=== PATIENT | male | born 1965 | race Caucasian/White ===

== ENCOUNTER 2023-05-24 15:23 | Emergency (ER) | payer OTHER, SELFPAY ==
--- NOTE | ~2023-05-24 | CT_ITS ---
EXAMINATION: CT HEAD WITHOUT CONTRAST CT CERVICAL SPINE WITHOUT CONTRAST CLINICAL INFORMATION: Fall. EtOH. COMPARISON: None available. TECHNIQUE: Contiguous axial imaging was performed from the skull base to vertex without intravenous administration of contrast. Contiguous axial imaging was performed from the upper chest through the skull base without intravenous administration of contrast. Coronal and sagittal reformats were obtained at the acquisition workstation. This CT examination was performed using dose optimization techniques as appropriate, variously including the following: *Automated exposure control. *Adjustment of mA and/or kV according to patient size (this includes techniques or standardized protocols for targeted exams where dose is matched to indication/reason for exam; i.e. extremities or head). *Use of iterative reconstruction technique. DLP: 1989 mGy-cm FINDINGS: Head: There is no evidence of acute intracranial hemorrhage or edematous territorial infarction. Eckert-white matter differentiation is preserved. Scattered and partially confluent hypoattenuation in the periventricular and deep white matter are consistent with moderate microangiopathy. Proportional prominence of the ventricles and sulcal spaces without evidence of obstructive hydrocephalus. No abnormal mass effect or midline shift. No extra-axial fluid collections. No acute soft tissue or osseous abnormalities. Thinning of the sigmoid plate along the jugular bulbs bilaterally without venous diverticulum. Mild mucosal thickening of the paranasal sinuses. The mastoid air cells and middle ear cavities are clear. Cervical Spine: The atlantooccipital and atlantoaxial articulations remain well aligned. Moderate degenerative arthropathy of atlantodental articulation. There is anatomic alignment of the vertebral bodies and posterior elements. No evidence of acute fracture or subluxation. The vertebral body heights are maintained. Moderate degenerative disc disease at C6-C7 with associated disc-osteophyte complex formation. There appears to be at least moderate spinal canal stenosis at C6-C7. Mild degenerative disc disease at all additional cervical levels. Facet and uncovertebral joint arthropathy leads to osseous encroachment on the neural foramina from C3-C6. There is no prevertebral soft tissue swelling. There is a cystic lesion along the tail of the superficial lobe of the left parotid lobe, measuring 2.7 x 2.6 x 3.8 cm. The thyroid gland and remaining cervical soft tissues are within normal limits. The lung apices demonstrate no abnormalities. CT/CT cervical spine wo IV con IMPRESSION: 1. No evidence of acute intracranial hemorrhage or edematous territorial infarction. 2. No evidence of acute fracture or traumatic subluxation of the cervical spine. 3. Moderate underlying microangiopathy and generalized cerebral volume loss. 4. Moderate multilevel degenerative spondyloarthropathy of the cervical spine. Most notably on this limited exam without intrathecal contrast, there appears to be at least moderate spinal canal stenosis at C6-C7. 5. Nonspecific 3.8 cm cystic lesion along the tail of the superficial lobe of the left parotid lobe.
[2023-05-24 16:39] VITALS: BP 128/76; PULSE 95; O2SAT 90
[2023-05-24 16:51] VITALS: BP 124/74; PULSE 100; RESP 20; O2SAT 89; BMI 38.2
--- NOTE | 2023-05-24 16:56 | ED_ITS ---
HPI - Alcohol General Chief Complaint: ETOH/Substance Use Stated Complaint: ETOH WITNESSED FALLING Time Seen by Provider: 05/24/23 16:40 Source: patient and EMS Mode of arrival: EMS History of Present Illness HPI narrative: 58-year-old male brought in by EMS, he has been consuming alcohol today and was recently at [facility] and had a witnessed fall with C-collar in place and abrasion to the forehead. Patient states that he is fine and denies any headache at this time. Related Data Allergies Allergy/AdvReac Type Severity Reaction Status Date / Time Unable to Assess Allergy Verified 05/24/23 16:57 Review of Systems Review of Systems: Pertinent positives and negatives as stated in HPI PMFSH Past Medical History Source: nursing notes reviewed Social History Social History Alcohol intake: current Alcohol intake frequency: a few times a week Smoked in Last 30 Days: No Use of substances other than those prescribed or required for medical reasons: No Physical Exam ED Vital Signs: Vital Signs - 24 hr 05/24/23 16:51 05/24/23 18:10 Pulse Rate 100 93 Respiratory Rate 20 18 Blood Pressure 124/74 136/90 H Pulse Oximetry 89 L 96 Oxygen Delivery Method Room Air Nasal Cannula Oxygen Flow Rate 2 BMI result Body Mass Index 38.2 VITAL SIGNS: Reviewed. GENERAL: Elevated BMI, Well developed, well nourished, in no acute distress, smells of alcohol. HEAD: Normocephalic/abrasion-contusion to mid forehead EYES: PERRLA, EOMI EARS: Ext canals without abnormality NOSE: Nares patent bilateral OROPHARYNX: no oral lesions noted, posterior pharynx clear NECK: C-collar in place without midline cervical spine tenderness to palpation or step-offs. LUNGS: Normal breath sounds. No adventitious sounds or accessory muscle use. CARDIOVASCULAR: Regular rate and rhythm without noted murmurs ABDOMEN: Soft, non-tender, non-distended with bowel sounds. MUSCULOSKELETAL: No tenderness, deformities, or effusions noted on gross inspection. EXTREMITIES: No cyanosis, clubbing or edema. SKIN: Inspection of the skin reveals no rashes NEUROLOGIC: Alert and oriented x 4. Strength and sensation to light touch were grossly intact x 4. Medical Decision Making Medical Decision Making MDM Narrative: 58-year-old male with history and clinical presentation, DDX: Alcohol intoxication, fall secondary to gait unsteadiness due to alcohol intoxication, will rule out intracranial hemorrhage or cervical spine pathology. 1855: CT of the head negative for intracranial hemorrhage or mass effect 10 cervical spine does not demonstrate any fracture or subluxation. C-collar was removed. Patient was clinically evaluated as he was requesting to leave, he does ambulate with a steady gait. Patient states that he lives at home and will take the bus. Patient otherwise walked out of the department unbeknownst to any of the staff members. Differential Diagnosis Differential Diagnoses: The differential diagnosis associated with the presentation includes Please see the discussion above Admission/Observation Consideration of admission/observation: Escalation of care including admi ssion/observation considered Please see the discussion above Radiology Impression Discussion of test interpretation with radiology: I have reviewed the radiologist's reading. Radiologist Impression: Please see the discussion above Chronic Conditions Patient?s care impacted by: Other Alcohol use disorder Social Determinants Patient?s care significantly limited by Social Determinants of Health including: Alcoholism and drug addiction in family Discharge Plan Discharge Clinical Impression: Fall, Alcohol use disorder Patient Disposition: Elopement Instructions: Fall Prevention (ED), Alcohol Use Disorder (ED)
[2023-05-24 18:10] VITALS: BP 136/90; PULSE 93; RESP 18; O2SAT 96
--- NOTE | 2023-05-24 18:12 | PC.NURSE ---
Pt awaits CT scan at this time.
--- NOTE | 2023-05-24 18:44 | MHC.RECOVSUP ---
Met with pt in [facility] who is here after falling and [facility]AND[facility]. Pt informs he had been drinking today but does not have a drinking problem and is not interested in recovery supports at this time and would like to go home.
== END 2023-05-24 21:17 | disposition left against medical advice (07) ==
PROVIDERS: Emergency Provider Student in an Organized Health Care Education/Training Program
DX: S00.81XA Abrasion of other part of head, initial encounter (principal); W19.XXXA Unspecified fall, initial encounter; F10.920 Alcohol use, unspecified with intoxication, uncomplicated; Y90.9 Presence of alcohol in blood, level not specified; R26.81 Unsteadiness on feet; Y93.9 Activity, unspecified; Y92.9 Unspecified place or not applicable; Y99.9 Unspecified external cause status
CPT/HCPCS: 70450; 72125; 99284

== ENCOUNTER 2023-05-25 12:18 | Emergency (ER) | payer OTHER, SELFPAY ==
--- NOTE | ~2023-05-25 | XR_ITS ---
EXAMINATION: XR CHEST CLINICAL INFORMATION: Cough COMPARISON: None available. TECHNIQUE: Frontal view of the chest was obtained. 1 frontal view upright AP FINDINGS: No significant abnormality is noted involving the heart, lungs, mediastinum, bony thorax or soft tissues. XR/XR chest 1V IMPRESSION: No acute infiltrates or failure.
--- NOTE | 2023-05-25 12:25 | ED_ITS ---
HPI - General Adult General Chief complaint: ETOH/Substance Use Stated complaint: ETOH Time Seen by Provider: 05/25/23 12:24 Source: patient and EMS Mode of arrival: EMS Limitations: no limitations History of Present Illness HPI narrative: Patient is a 58 year old assigned male at with a history of alcohol abuse presenting to the emergency department today with acute intoxication. Patient states that he has been drinking and does not want to be here at this time. Patient denies any dizziness, lightheadedness, abdominal pain, nausea, vomiting, fever, chills, blurry vision, double vision, loss of vision, chest pain, difficulty breathing, shortness of breath, back pain, night sweats, pain with urination, increased urinary frequency, increased urinary urgency, blood in his urine or stool, syncope or a near syncopal episode, recent trauma or falls, bowel incontinence, bladder incontinence, bowel retention, bladder retention, or any other complaints at this time. Relieving factors: none Exacerbating factors: none Associated symptoms: denies other symptoms Treatments prior to arrival: none Related Data Allergies Allergy/AdvReac Type Severity Reaction Status Date / Time Unable to Assess Allergy Verified 05/25/23 12:33 Review of Systems 2 Constitutional: Constitutional: Reports no additional constitutional complaints, Denies chills, Denies fever(s) and Denies night sweats Eyes: Eyes: Reports no additional eye complaints, Denies blurry vision, Denies change in vision, Denies diplopia, Denies eye discharge, Denies loss of vision and Denies eye pain ENT: Denies dizziness Cardiovascular: Cardiovascular: Reports no additional cardiovascular complaints, Denies chest pain, Denies lightheadedness, Denies Loss of Consciousness and Denies dyspnea Respiratory: Respiratory: Reports no additional respiratory complaints and Denies dyspnea Gastrointestinal: Gastrointestinal: Reports no additional gastrointestinal complaints, Denies abdominal pain, Denies melena, Denies hematochezia, Denies change in bowel habits and Denies change in stool character Genitourinary: Genitourinary: Reports no additional male genitourinary complaints, Denies hematuria, Denies oliguria, Denies difficulty urinating, Denies dysuria, Denies urinary frequency, Denies urinary hesitancy, Denies urinary incontinence and Denies urinary urgency Musculoskeletal: Musculoskeletal: Reports no additional musculoskeletal complaints, Denies numbness and Denies tingling Neurologic: Denies dizziness, Denies loss of vision, Denies numbness and Denies tingling Psychiatric: Psychiatric: Reports no additional psychiatric complaints Endocrine: Endocrine: Reports no additional endocrine complaints Hematologic/Lymphatic: Hematologic/Lymphatic: Reports no additional hematologic/lymphatic complaints Allergic/Immunologic: Allergic/Immunologic: Reports no additional allergic/immunologic complaints PMFSH Past Medical History Attestation statement: The following information was validated with the patient. Source: old records reviewed and nursing notes reviewed Social History Social History Alcohol intake: current Alcohol intake frequency: a few times a week Advance Directives: No Advance Directives Information Provided: No Physical Exam ED Vital Signs: Vital Signs - 24 hr 05/25/23 12:28 Temperature 100.1 F Pulse Rate 101 H Respiratory Rate 20 Blood Pressure 144/93 H Pulse Oximetry 94 Oxygen Delivery Method Room Air BMI result Body Mass Index 35.6 Const General: cooperative, no acute distress, alert and awake Nutritional Appearance: well nourished Orientation/consciousness: patient oriented x3 Limitations: no limitations HENMT Head: Yes normal to inspection and Yes atraumatic Ears: hearing grossly normal bilaterally and external ears normal General nose exam: Normal external nose present, no nasal discharge noted and no epistaxis Face and sinus: Yes normal facial exam, No abrasion and No laceration Mouth: Normal oral and palatal mucosa present, no drooling and no muffled voice Eyes General: appearance normal, both eyes and all related structures Periorbital: periorbital findings normal Eyelids: Yes eyelids normal Conjunctivae: conjunctivae normal Pupils: Equal, round and reactive pupils present EOM: EOMs intact bilaterally Neck Neck: Yes normal visual inspection, Yes full ROM and Yes no lymphadenopathy Chest Chest palpation & inspection: normal inspection of the chest Resp Effort & Inspection: normal respiratory effort and able to speak in complete sentences Auscultation: clear to auscultation bilaterally Cardio Rate: regular rate Rhythm: regular rhythm GI Inspection: Yes normal to inspection Neuro General: patient oriented x3 and moves all extremities Cranial nerves: Yes Equal, round and reactive pupils present Cognition (Neuro): normal cognition Motor exam (neuro): 5/5 motor strength present throughout Sensory Exam: Normal double simultaneous stimulation for sensation Coordination: [id number] test normal Extrem General: Yes normal to inspection, Yes full ROM and Yes capillary refill normal Psych Appearance: grossly normal Mental Status: mental status grossly normal Affect: normal affect Attitude: cooperative Thought process: Normal thought process present Thought content: Normal thought content present Insight: Good insight present (Psych) Medical Decision Making Medical Decision Making [facility] Narrative: Patient is a 58 year old assigned male at with a history of alcohol abuse presenting to the emergency department today with alcohol intoxication. Patient's physical exam was unremarkable. Given patient's level of intoxication I obtained a medical work up. Patient's blood work showed an elevated lactic acid of 2.5 and elevated alcohol level of 304 but were otherwise unremarkable. Patient's EKG was unremarkable. Patient's chest x-ray showed no acute process. I explained my physical exam findings as well as all test results to the patient. I answered all questions asked by the patient. Patient was in the department for some time and was able to ambulate steadily on his feet. Patient requested to leave the department and ordered himself an Uber. I stressed the importance of the patient taking his medication as prescribed and refraining from alcohol use. I stressed the importance of the patient following up with his primary care provider. I stressed the importance of the patient returning to the emergency department immediately if his symptoms were to worsen or if he were to develop any dizziness, shortness of breath, difficulty breathing, chest pain, blurry vision, loss of vision, nausea, vomiting, abdominal pain, fever, chills, back pain, or any other complaints. Patient verbalized agreement and understanding with this treatment plan and discharge. Differential Diagnosis Differential Diagnoses: The differential diagnosis associated with the presentation includes Alcohol intoxication ETOH abuse ETOH use Admission/Observation Consideration of admission/observation: Escalation of care including admission/observation considered Patient would have been admitted to the hospital had his work up had any findings where hospital admission was appropriate and his clinical presentation warranted hospital admission. Lab Data [facility] Lab Attestation statement: I reviewed the patient's lab results. My interpretation of these results are in the [facility] Rationale portion in this note. 05/25/23 14:27 05/25/23 14:26 Labs: Lab Results 05/25/23 05/25/23 05/25/23 Range/Units 14:26 14:27 14:28 WBC 8.3 (4.8-10.8) X10*3/uL RBC 4.86 (4.60-5.80) X10*6/uL Hgb 15.9 (14.0-18.0) g/dl Hct 45.1 (42.0-52.0) % MCV 92.8 (80.0-98.0) fL MCH 32.7 (27.0-33.0) pg MCHC 35.3 (31.0-36.0) g/dl RDW 13.2 (11.0-16.0) % Plt Count 276 (160-400) X10*3/uL MPV 9.4 (9.4-12.4) fL Immature Gran % (Auto) 0.8 H (0.0-0.4) % Neut % (Auto) 70.1 (45-73) % Lymph % (Auto) 19.9 L (20-40) % [place] % (Auto) 6.7 (2-11) % Eos % (Auto) 1.9 (0-4) % Baso % (Auto) 0.6 (0-2) % Lymph # (Auto) 1.7 (1.2-4.9) X10*3/uL [place] # (Auto) 0.6 (0.1-1.2) X10*3/uL Eos # (Auto) 0.2 (0.0-0.4) X10*3/uL Baso # (Auto) 0.1 (0.0-0.2) X10*3/uL Abs Immat Gran (auto) 0.07 H (0.00-0.03) X10*3/uL Absolute Neuts (auto) 5.8 (2.0-8.3) x10*3/uL Absolute Nucleated RBC 0.000 (0.0-0.012) X10*3/uL Nucleated RBC % (auto) 0.0 (0.0-0.2) /100WBC PT 12.7 (11.1-13.3) SEC INR 1.0 (0.9-1.1) APTT 32.8 (26.0-36.4) SEC VBG pH (7.32-7.43) VBG pCO2 mmHg VBG pO2 mmHg VBG HCO3 (22-26) mmol/L VBG O2 Saturation % VBG Base Excess mmol/L Sodium 142 (135-145) mmol/L Potassium 3.9 (3.3-5.1) mmol/L Chloride 108 (96-108) mmol/L Carbon Dioxide 21 L (22-29) mmol/L Anion Gap 17 (12-20) BUN 14 (9-16) mg/dL Creatinine 0.83 (0.5-1.4) mg/dL Estim Creat Clear Calc 108.7 Estimated GFR > 60 Random Glucose 83 (60-115) mg/dL Lactic Acid 2.5 H* (0.5-2.0) mmol/L Calcium 9.0 (8.4-10.2) mg/dL Magnesium 2.1 (1.6-2.6) mg/dL Total Bilirubin 0.4 (0.0-1.0) mg/dL AST 32 (5-37) U/L ALT 34 (0-40) U/L Alkaline Phosphatase 66 (39-117) U/L Troponin I High Sens (<3.5-35.0) ng/L Total Protein 7.8 (6.5-8.0) g/dL Albumin 4.4 (3.5-5.0) g/dL Ethyl Alcohol 304 H* mg/dL Influenza Type A (PCR) NEGATIVE (Negative) Influenza Type B (PCR) NEGATIVE (Negative) RSV RNA Qual (PCR) NEGATIVE (Negative) SARS-CoV-2 RNA (RT-PCR) NEGATIVE (Negative) 05/25/23 05/25/23 Range/Units 14:29 14:35 WBC (4.8-10.8) X10*3/uL RBC (4.60-5.80) X10*6/uL Hgb (14.0-18.0) g/dl Hct (42.0-52.0) % MCV (80.0-98.0) fL MCH (27.0-33.0) pg MCHC (31.0-36.0) g/dl RDW (11.0-16.0) % Plt Count (160-400) X10*3/uL MPV (9.4-12.4) fL Immature Gran % (Auto) (0.0-0.4) % Neut % (Auto) (45-73) % Lymph % (Auto) (20-40) % [place] % (Auto) (2-11) % Eos % (Auto) (0-4) % Baso % (Auto) (0-2) % Lymph # (Auto) (1.2-4.9) X10*3/uL [place] # (Auto) (0.1-1.2) X10*3/uL Eos # (Auto) (0.0-0.4) X10*3/uL Baso # (Auto) (0.0-0.2) X10*3/uL Abs Immat Gran (auto) (0.00-0.03) X10*3/uL Absolute Neuts (auto) (2.0-8.3) x10*3/uL Absolute Nucleated RBC (0.0-0.012) X10*3/uL Nucleated RBC % (auto) (0.0-0.2) /100WBC PT (11.1-13.3) SEC INR (0.9-1.1) APTT (26.0-36.4) SEC VBG pH 7.33 (7.32-7.43) VBG pCO2 39 mmHg VBG pO2 122 mmHg VBG HCO3 21 L (22-26) mmol/L VBG O2 Saturation 99.0 % VBG Base Excess -4.2 mmol/L Sodium (135-145) mmol/L Potassium (3.3-5.1) mmol/L Chloride (96-108) mmol/L Carbon Dioxide (22-29) mmol/L Anion Gap (12-20) BUN (9-16) mg/dL Creatinine (0.5-1.4) mg/dL Estim Creat Clear Calc Estimated GFR Random Glucose (60-115) mg/dL Lactic Acid (0.5-2.0) mmol/L Calcium (8.4-10.2) mg/dL Magnesium (1.6-2.6) mg/dL Total Bilirubin (0.0-1.0) mg/dL AST (5-37) U/L ALT (0-40) U/L Alkaline Phosphatase (39-117) U/L Troponin I High Sens 10.4 (<3.5-35.0) ng/L Total Protein (6.5-8.0) g/dL Albumin (3.5-5.0) g/dL Ethyl Alcohol mg/dL Influenza Type A (PCR) (Negative) Influenza Type B (PCR) (Negative) RSV RNA Qual (PCR) (Negative) SARS-CoV-2 RNA (RT-PCR) (Negative) Independent Interpretation I performed an independent interpretation of an: EKG and Plain X-Ray Interpretation: My interpretation is in agreement with the radiologist's impression of this imaging study. - EXAMINATION: XR CHEST CLINICAL INFORMATION: Cough COMPARISON: None available. TECHNIQUE: Frontal view of the chest was obtained. 1 frontal view upright AP FINDINGS: No significant abnormality is noted involving the heart, lungs, mediastinum, bony thorax or soft tissues. XR/XR chest 1V IMPRESSION: No acute infiltrates or failure. Dictated By: Nathalie Garcia MD Signed By: Electronically signed by Nathalie Garcia MD 05/25/23 1443 - Vent. Rate: 096 BPM Atrial Rate: 096 BPM P-R Int: 214 ms QRS Dur: 106 ms QT Int: 356 ms P-R-T Axes: 018 -18 064 degrees QTc Int: 449 ms Sinus rhythm with 1st degree A-V block Incomplete right bundle branch block Septal infarct , age undetermined T wave abnormality, consider lateral ischemia Abnormal ECG No previous ECGs available Electronically Signed By:EDDIE HZU Dictated By: Eddie Zhu MD Signed By: Electronically signed by Eddie Zhu MD 05/25/23 1549 Radiology Impression Discussion of test interpretation with radiology: I have reviewed the radiologist's reading. Independent Historian Clinical information obtained from an independent historian. History obtained from or confirmed by: EMS (EMS provided additional history and confirmed the history provided by the patient.) Discharge Plan Discharge Clinical Impression: Alcoholic intoxication Patient Disposition: Home, Self-Care Instructions: Alcohol Intoxication (ED) Additional Instructions: Follow up with your primary care provider. Return to the emergency department immediately if your symptoms worsen or if you develop any dizziness, shortness of breath, difficulty breathing, chest pain, blurry vision, loss of vision, nausea, vomiting, abdominal pain, fever, chills, back pain, or any other complaints. Ref[place]: [facility] [facility] [place] (Call to establish and follow up with a primary care provider. If you already have a primary care provider, please follow up with them.) [facility] [place] [facility] [place]Provider Group] (Call to establish and follow up with a primary care provider. If you already have a primary care provider, please follow up with them.) [facility] [place] [facility] [Provider Group] (Call to establish and follow up with a primary care provider. If you already have a primary care provider, please follow up with them.) Interventions: ED Discharge Assessment Last Done: 05/25/23 15:10 Discharge Date/Time: 05/25/23 15:24 Print Language: Yi
[2023-05-25 12:28] VITALS: BP 144/93; BP 160/82; PULSE 101; PULSE 110; RESP 20; TEMP 37.8; O2SAT 94; O2SAT 95; BMI 35.6
--- NOTE | 2023-05-25 12:52 | ECG_ITS ---
Test Reason : WEAKNESS Blood Pressure : / mmHG Vent. Rate : 096 BPM Atrial Rate : 096 BPM P-R Int : 214 ms QRS Dur : 106 ms QT Int : 356 ms P-R-T Axes : 018 -18 064 degrees QTc Int : 449 ms Sinus rhythm with 1st degree A-V block Incomplete right bundle branch block Septal infarct , age undetermined T wave abnormality, consider lateral ischemia Abnormal ECG No previous ECGs available Referred By: Daiana Crespo Electronically Signed By:YVETTE GARDNER
[2023-05-25 14:36] LABS: MANUAL DIFF FLAG NO
[2023-05-25 14:38] LABS: Venous Blood Gas Refer to POC result
[2023-05-25 14:39] LABS: Basophils Absolute Auto 0.1 X10*3/uL (0.0-0.2); Basophils Percent Auto 0.6 % (0-2); Eosinophils Absolute Auto 0.2 X10*3/uL (0.0-0.4); Eosinophils Percent Auto 1.9 % (0-4); Hematocrit 45.1 % (42.0-52.0); Hemoglobin 15.9 g/dl (14.0-18.0); Imm Gran Abs Auto 0.07 X10*3/uL (0.00-0.03); Imm Gran Pct Auto 0.8 % (0.0-0.4); Lymphocytes Absolute Auto 1.7 X10*3/uL (1.2-4.9); Lymphocytes Percent Auto 19.9 % (20-40); Mean Corpuscular HGB Conc 35.3 g/dl (31.0-36.0); Mean Corpuscular Hemoglobin 32.7 pg (27.0-33.0); Mean Corpuscular Volume 92.8 fL (80.0-98.0); Mean Platelet Volume 9.4 fL (9.4-12.4); Monocytes Absolute Auto 0.6 X10*3/uL (0.1-1.2); Monocytes Percent Auto 6.7 % (2-11); Neutrophils Absolute Auto 5.8 x10*3/uL (2.0-8.3); Neutrophils Percent Auto 70.1 % (45-73); Platelet Count 276 X10*3/uL (160-400); Red Blood Count 4.86 X10*6/uL (4.60-5.80); Red Cell Distribution Width 13.2 % (11.0-16.0); White Blood Count 8.3 X10*3/uL (4.8-10.8)
[2023-05-25 14:40] LABS: VBG Base Excess -4.2 mmol/L; VBG HCO3 21 mmol/L (22-26); VBG pCO2 39 mmHg; VBG pH 7.33 (7.32-7.43); VBG pO2 122 mmHg
[2023-05-25 14:44] LABS: Prothrombin Time 12.7 SEC (11.1-13.3)
[2023-05-25 14:46] LABS: Partial Thromboplastin Time 32.8 SEC (26.0-36.4)
[2023-05-25 14:51] LABS: Ethanol 304 mg/dL
[2023-05-25 14:55] LABS: Alanine Aminotransferase 34 U/L (0-40); Albumin Level 4.4 g/dL (3.5-5.0); Alkaline Phosphatase 66 U/L (39-117); Anion Gap 17 (12-20); Aspartate Amino Transferase 32 U/L (5-37); Bilirubin Total 0.4 mg/dL (0.0-1.0); Blood Urea Nitrogen 14 mg/dL (9-16); Carbon Dioxide 21 mmol/L (22-29); Chloride 108 mmol/L (96-108); Creatinine Clr Calc Pharmacy 108.7; Estimated Glomerular Filt Rate > 60; Glucose Random 83 mg/dL (60-115); Magnesium 2.1 mg/dL (1.6-2.6); Potassium 3.9 mmol/L (3.3-5.1); Sodium 142 mmol/L (135-145); Total Protein 7.8 g/dL (6.5-8.0)
[2023-05-25 15:00] LABS: Lactic Acid 2.5 mmol/L (0.5-2.0)
[2023-05-25 15:02] LABS: Troponin-I High Sensitivity 10.4 ng/L (<3.5-35.0)
--- NOTE | 2023-05-25 15:08 | PC.NURSE ---
Pt was dressing himself stating he was going to leave. Pa at bedside. Pt had verbal discharge done. Pt ambulated self out of ED
[2023-05-25 15:32] LABS: Influenza A PCR NEGATIVE (Negative); Influenza B PCR NEGATIVE (Negative); Resp Syncy Virus RNA Qual PCR NEGATIVE (Negative); SARS COV2 PCR INHOUSE NEGATIVE (Negative)
[2023-05-25 16:32] LABS: Reflex Lactate? Lactic Acid Added
== END 2023-05-25 15:24 | disposition home or self-care (01) ==
LOC: HO.ED 15:20
PROVIDERS: Physician Assistant Medical; Emergency Provider Emergency Medicine
DX: F10.129 Alcohol abuse with intoxication, unspecified (principal); R05.9 Cough, unspecified; Y90.8 Blood alcohol level of 240 mg/100 ml or more; Z20.822 Contact with and (suspected) exposure to COVID-19; Z20.828 Contact with and (suspected) exposure to other viral communicable diseases; Z79.899 Other long term (current) drug therapy
CPT/HCPCS: 0241U; 71045; 80053; 80307; 82803; 83605; 83735; 84484; 85025; 85610; 85730; 87040; 93005; 99283; 99284

== ENCOUNTER → 2023-05-25 12:52 | Outpatient (BNV) | payer OTHER, SELFPAY | PROVIDERS: Emergency Provider Emergency Medicine; Visit Provider Internal Medicine | DX: I44.0 Atrioventricular block, first degree (principal); R94.31 Abnormal electrocardiogram [ECG] [EKG] | CPT/HCPCS: 93010 ==

== ENCOUNTER 2025-02-18 10:30 | Outpatient (AMB) | payer OTHER, SELFPAY ==
[2025-02-18 10:48] VITALS: BMI 38.1
--- NOTE | 2025-02-18 10:48 | A.OFFVIS_ITS ---
VS Expanded 02/18/25 10:48 02/18/25 10:53 Height 5 ft 11 in 5 ft 11 in Weight 273 lb 5.971 oz 273 lb BMI 38.1 38.1 Intake Visit Reasons: Obesity Allergies Unable to Assess Allergy (Verified 05/25/23 12:33) Nutrition Presentation Details: Pt presents for MNT for obesity Pt reports having gained about 25 lbs since May 2025 d/t sedentary lifestyle d/t injury Pt reports he is currently residing in a sober house since September 2024 and is working on choosing healthier foods physical activity: participates in PT 2 x/wk, and is gardening daily , working on keeping physically active and keeping sober food frequency fruits: 4+/d fish: 1/wk ve-3x/wk dairy: 4c /day starches pasta/potatoes working on reducing pastries/cookies /ice cream Reports taking MVI, vit D and b comples BS Monitoring Most Recent Diabetes Results: Creatinine, (0.5-1.4) 0.83 mg/dL 05/25/23 BUN, (9-16) 14 mg/dL 05/25/23 Sodium, (135-145) 142 mmol/L 05/25/23 Potassium, (3.3-5.1) 3.9 mmol/L 05/25/23 Chloride, (96-108) 108 mmol/L 05/25/23 Carbon Dioxide, (22-29) 21 mmol/L L 05/25/23 Calcium, (8.4-10.2) 9.0 mg/dL 05/25/23 AST, (5-37) 32 U/L 05/25/23 ALT, (0-40) 34 U/L 05/25/23 Total Protein, (6.5-8.0) 7.8 g/dL 05/25/23 Albumin, (3.5-5.0) 4.4 g/dL 05/25/23 ZOQ-Nymogdl-Oe.Jeor Equation Height: 5 ft 11 in Weight: 273 lb Resting Metabolic Rate: 2083.83 Calculated Activity Level: Sedentary Calories Needed to Maintain Weight: 2500.60 Diagnosis Nutrition problem #1: overweight/obesity As related to (etiology) #1: diagnosis As evidenced by (sign/symptom) #1: high BMI (38.1 (03/12)) PFSH Social History Alcohol intake: current Alcohol intake frequency: a few times a week Assessment & Plan Assessment & Plan (1) Obesity (BMI 30-39.9): Code(s): E66.9 - Obesity, unspecified Category: Medical Plan: Wt: 124 Kg ( 03/12 ) Est kcal needs as per MSJ: 2500 (40% carb, 30% protein/fat) Est fluid needs as per 25-30 ml/d: 3700 Est prot per day as per 1 g/kg bw: 124 Recommend fiber intake : 8-10 g per day and gradually increase to 25-28 g per day for women and 35-38 g for men or as tolerated Recommend sodium intake per day : less than 2000 mg Educated patient on: ( R = reviewed V = verbalizes understanding N/R = needs review N/A = not applicable * Food sources of carbohydrate, adequate serving sizes and its role in various health conditions: R * Differences between complex carbohydrates a simple carbohydrates, role of fiber in diet: R * Lean protein sources of foods: R * Differences between types of fats and role in diet (mono on saturated fat fatty acids, saturated fatty acids, trans fats): R V N/R * Food sources of sodium in salt and healthy modifications for heart health in kidney health: R V R/V * Vitamins and minerals: R V N/R * Healthy plate method concept: R * Physical activity: Benefits a precaution: R V N/R * Patient Instructions: Include fish at least twice a week Continue working on reducing on sugars (beverages/pastries and similar) Switch to whole grains (breads, whole grain pastas, starchy vegetables ) REduce portion of starches to less than 2 cups cooked Coding Level of Care Code Nutr Indiv Intake (76625) Diagnoses Obesity (BMI 30-39.9) E66.9 Time Spent (min) 30
--- OUTSIDE RECORDS SUMMARY | 2025-02-18 12:17 | XMS_ITS | Encounter Summary ---
Author Organization [facility] Address [address] [place] [address] Care Team Providers Care Jewelry Sales Representative Name Role Phone Asia Appiah Primary Care Provider + Encounter Details Date Type Department Care Team (Late st Contact Info) Description 08/02/2024 Lab Requisition [facility] - Main Lab [address] [facility] [place] [address] Robert Olivares MD [address] [place] [address], [phone] Unspecified diastolic (congestive) heart failure (CMS/HCC V24, CMS/HCC V28) Social History Tobacco Use Types Packs/Day Years Used Date Smoking Tobacco: Former Cigarettes Q uit: 02/08/2019 Smokeless Tobacco: Never Alcohol Use Standard Drinks/Week Comments Not Currently 0 (1 standard drink = 0.6 oz pur e alcohol) Sex and Gender Information Value Date Recorded Sex Assigned at Not on file Legal Sex Male 6:33 PM EST Gender Identity Not on file Sexual Orientation Not on file 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 file Not on file Not on file documented as of this encounter Plan of Treatment Upcoming Encounters Date Type Department Care Team (Late st Contact Info) Description 03/04/2025 1:30 PM EDT Consult Orthopedic Surgery - [place] [address] [facility] [address] [place] [phone] Salazar William, [place]ACA 175 [facility] 250 [place] [address] 03/25/2025 3:30 PM EDT Office Visit Bariatric Surgery - [place] [address] [facility] [address] [place] [phone] Susi Rodriguez PA [address] [place] [address] 04/15/2025 10:30 AM EDT Office Visit Internal Medicine - [place] 175 [facility] 200 [place] [phone] Asia Appiah PA [address] [place] [address] documented as of this encounter Procedures Procedure Name Priority Date/Time Associated Diagnosis Comments SEDIMENTATION RATE Routine 08/04/2024 6: 55 AM EST Unspecified diastolic (congestive) heart failure (CMS/HCC) COMPLETE BLOOD COUNT Routine 08/04/2024 6:55 AM EST Unspecified diastolic (congestive) heart failure (CMS/HCC) C-REACTIVE PROTEIN Routine 08/04/2024 6: 55 AM EST Unspecified diastolic (congestive) heart failure (CMS/HCC) COMPREHENSIVE METABOLIC PANEL Routine 08/04/2024 6:55 AM EST Unspecified diastolic (congestive) heart failure (CMS/HCC) documented in this encounter Results * Comprehensive metabolic panel (08/04/2024 6:55 AM EST) Sodium 142 133 - 145 mmol/L LAB CHEMISTRY METHOD 08/04/2024 11:56 AM EST [facility] Potassium 3.7 3.5 - 5.5 mmol/L LAB CHEMISTRY METHOD 08/04/2024 11:56 AM EST [facility] Chloride 107 96 - 110 mmol/L LAB CHEMISTRY METHOD 08/04/2024 11:56 AM [facility] CO2 24 21 - 32 mmol/L LAB CHEMISTRY METHOD 08/04/2024 11:56 AM [facility] Anion Gap 11 3 - 11 LAB CHEMISTRY METHOD 08/04/2024 11:56 AM [facility] Glucose 94 70 - 100 mg/dL LAB CHEMISTRY METHOD 08/04/2024 11:56 AM [facility] BUN 13 5 - 25 mg/dL LAB CHEMISTRY METHOD 08/04/2024 11:56 AM [facility] Creatinine 0.83 0.70 - 1.30 mg/dL LAB CHEMISTRY METHOD 08/04/2024 11:56 AM [facility] eGFR 101 >=60 mL/min/1. 73m2 LAB CHEMISTRY METHOD 08/04/2024 11:56 AM [facility] Comment:Calculation based on the Chronic Kidney Disease Epidemiology Collaboration (CKD-EPI) equation refit without adjustment for race. BUN/Creatinine Ratio 15.7 LAB CHEMISTRY METHOD 08/04/2024 11:56 AM [facility] Calcium 8.7 8.5 - 10.5 mg/dL LAB CHEMISTRY METHOD 08/04/2024 11:56 AM [facility] AST (SGOT) 19 10 - 42 unit/L LAB CHEMISTRY METHOD 08/04/2024 11:56 AM [facility] ALT (SGPT) 22 10 - 60 unit/L LAB CHEMISTRY METHOD 08/04/2024 11:56 AM [facility] Alkaline Phosphatase 44 42 - 121 unit/L LAB CHEMISTRY METHOD 08/04/2024 11:56 AM [facility] Total Protein 6.6 6.0 - 8.0 g/dL LAB CHEMISTRY METHOD 08/04/2024 11:56 AM [facility] Albumin 3.4 3.2 - 5.0 g/dL LAB CHEMISTRY METHOD 08/04/2024 11:56 AM EST [facility] Total Bilirubin 0.3 0.0 - 1.4 mg/dL LAB CHEMISTRY METHOD 08/04/2024 11:56 AM [facility] Blood Venous blood specimen / Unknown Venipuncture / Unknown 08/04/2024 6:55 AM EST 08/04/2024 11:06 AM EST us Robert Olivares MD LAB BLOOD ORDERABLES Final Resul t [facility] [address] [place] [address], [place] [phone] * (ABNORMAL) Complete blood count (08/04/2024 6:55 AM EST) WBC 5.1 4.8 - 10.8 K/mcL LAB HEMETOLOGY METHOD 08/04/2024 11:21 AM [facility] RBC 4.00(L) 4.50 - 5.50 M/mcL LAB HEMETOLOGY METHOD 08/04/2024 11:21 AM [facility] Hemoglobin 12.9(L) 13.5 - 17.5 g/dL LAB HEMETOLOGY METHOD 08/04/2024 11:21 AM [facility] Hematocrit 38.7(L) 42.0 - 54.0 % LAB HEMETOLOGY METHOD 08/04/2024 11:21 AM [facility] MCV 96.0 79.0 - 98.0 FL LAB HEMETOLOGY METHOD 08/04/2024 11:21 AM [facility] MCH 32.0 27.0 - 32.0 pcg LAB HEMETOLOGY METHOD 08/04/2024 11:21 AM [facility] MCHC 33.3 32.0 - 37.0 g/dL LAB HEMETOLOGY METHOD 08/04/2024 11:21 AM [facility] RDW 12.9 11.0 - 15.0 % LAB HEMETOLOGY METHOD 08/04/2024 11:21 AM EST [facility] Platelets 200 130 - 400 K/mcL LAB HEMETOLOGY METHOD 08/04/2024 11:21 AM EST [facility] MPV 9.8 7.0 - 11.0 FL LAB HEMETOLOGY METHOD 08/04/2024 11:21 AM EST [facility] NRBC 0.0 <1.0 % LAB HEMETOLOGY METHOD 08/04/2024 11:21 AM EST [facility] NRBC Absolute 0.00 <0.10 K/mcL LAB HEMETOLOGY METHOD 08/04/2024 11:21 AM EST [facility] Blood Venous blood specimen / Unknown Venipuncture / Unknown 08/04/2024 6:55 AM EST 08/04/2024 11:06 AM EST Robert Olivares MD LAB BLOOD ORDERABLES Final Resul t Performing Organization Address City/[facility]/ZIP Co de Phone Number [facility] [address] [place] [address], [place] [phone] * C-reactive protein (08/04/2024 6:55 AM EST) C-Reactive Protein <0.29 <=0.50 mg/dL LAB CHEMISTRY METHOD 08/04/2024 11:56 AM EST [facility] Blood Venous blood specimen / Unknown Venipuncture / Unknown 08/04/2024 6:55 AM EST 08/04/2024 11:06 AM EST us Robert Olivares MD LAB BLOOD ORDERABLES Final Resul t [facility] [address] [place] [address], [place] [phone] * Sedimentation rate (08/04/2024 6:55 AM EST) Sed Rate 17 0 - 20 mm/hr LAB HEMETOLOGY METHOD 08/04/2024 11:36 AM EST [facility] Blood Venous blood specimen / Unknown Venipuncture / Unknown 08/04/2024 6:55 AM EST 08/04/2024 11:06 AM EST us Robert Olivares MD LAB BLOOD ORDERABLES Final Resul t [facility] [address] [place] [address], documented in this encounter Visit Diagnoses Diagnosis Unspecified diastolic (congestive) heart failure (CMS/HCC V24, CMS/HCC V28) documented in this encounter Additional Health Concerns Infection Onset Date Last Indicated Resolved Time ESBL 06/19/2024 06/19/2024 documented as of this encounter Care Teams Jewelry Sales Representative Relationship Specialty Start Date End Date Asia Appiah PA [address] [address] PCP - General Primary Care 08/15/24 documented as of this encounter
--- OUTSIDE RECORDS SUMMARY | 2025-02-18 12:17 | XMS_ITS | Encounter Summary ---
Author Organization [facility] Address [address] [place] [address] Care Team Providers Care Qualitative Executive Researcher Name Role Phone Asia Appiah Primary Care Provider + Encounter Details Date Type Department Care Team (Late st Contact Info) Description 09/19/2024 Lab Requisition [facility] - Main Lab [address] [facility] [place] [address] Robert Olivares MD [address] [place] [address], [phone] Unspecified diastolic (congestive) heart failure (CMS/HCC [...] 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 on file Not on file documented as of this encounter Plan of Treatment Upcoming Encounters Date Type Department Care Team (Late st Contact Info) Description 03/04/2025 1:30 PM EDT Consult Orthopedic Surgery - [place] [address] [facility] [address] [place] [phone] Salazar William, [place]ACA 175 [facility] 250 [place] [address] 03/25/2025 3:30 PM EDT Office Visit Bariatric Surgery - [place] 175 [facility] [address] [place] [phone] Susi Rodriguez PA 230 [place] [address] 04/15/2025 10:30 AM EDT Office Visit Internal Medicine - [place] 175 [facility] 200 [place] [phone] Asia Appiah PA 230 [place] [address] documented as of this encounter Procedures Procedure Name Priority Date/Time Associated Diagnosis Comments SEDIMENTATION RATE Routine 09/22/2024 8: 47 AM EDT Unspecified diastolic (congestive) heart failure (CMS/HCC) COMPLETE BLOOD COUNT Routine 09/22/2024 8:47 AM EDT Unspecified diastolic (congestive) heart failure (CMS/HCC) C-REACTIVE PROTEIN Routine 09/22/2024 8: 47 AM EDT Unspecified diastolic (congestive) heart failure (CMS/HCC) COMPREHENSIVE METABOLIC PANEL Routine 09/22/2024 8:47 AM EDT Unspecified diastolic (congestive) heart failure (CMS/HCC) documented in this encounter Results * (ABNORMAL) Comprehensive metabolic panel (09/22/2024 8:47 AM EDT) Sodium 139 133 - 145 mmol/L LAB CHEMISTRY METHOD 09/22/2024 1:01 PM EDT [facility] Potassium 3.7 3.5 - 5.5 mmol/L LAB CHEMISTRY METHOD 09/22/2024 1:01 PM EDT [facility] Chloride 105 96 - 110 mmol/L LAB CHEMISTRY METHOD 09/22/2024 1:01 PM [facility] CO2 26 21 - 32 mmol/L LAB CHEMISTRY METHOD 09/22/2024 1:01 PM [facility] Anion Gap 8 3 - 11 LAB CHEMISTRY METHOD 09/22/2024 1:01 PM [facility] Glucose 198(H) 70 - 100 mg/dL LAB CHEMISTRY METHOD 09/22/2024 1:01 PM [facility] BUN 16 5 - 25 mg/dL LAB CHEMISTRY METHOD 09/22/2024 1:01 PM [facility] Creatinine 0.91 0.70 - 1.30 mg/dL LAB CHEMISTRY METHOD 09/22/2024 1:01 PM [facility] eGFR 98 >=60 mL/min/1. 73m2 LAB CHEMISTRY METHOD 09/22/2024 1:01 PM [facility] Comment:Calculation based on the Chronic Kidney Disease Epidemiology Collaboration (CKD-EPI) equation refit without adjustment for race. BUN/Creatinine Ratio 17.6 LAB CHEMISTRY METHOD 09/22/2024 1:01 PM [facility] Calcium 9.0 8.5 - 10.5 mg/dL LAB CHEMISTRY METHOD 09/22/2024 1:01 [facility] AST (SGOT) 26 10 - 42 unit/L LAB CHEMISTRY METHOD 09/22/2024 1:01 [facility] ALT (SGPT) 36 10 - 60 unit/L LAB CHEMISTRY METHOD 09/22/2024 1:01 PM [facility] Alkaline Phosphatase 68 42 - 121 unit/L LAB CHEMISTRY METHOD 09/22/2024 1:01 PM [facility] Total Protein 7.6 6.0 - 8.0 g/dL LAB CHEMISTRY METHOD 09/22/2024 1:01 PM [facility] Albumin 3.6 3.2 - 5.0 g/dL LAB CHEMISTRY METHOD 09/22/2024 1:01 PM T [facility] Total Bilirubin 0.4 0.0 - 1.4 mg/dL LAB CHEMISTRY METHOD 09/22/2024 1:01 PM [facility] Blood Venous blood specimen / Unknown Venipuncture / Unknown 09/22/2024 8:47 AM EDT 09/22/2024 10:17 AM EDT us Robert Olivares MD LAB BLOOD ORDERABLES Final Resul t [facility] [address] [place] [address], [place] [phone] * (ABNORMAL) Complete blood count (09/22/2024 8:47 AM EDT) WBC 6.4 4.8 - 10.8 K/mcL LAB HEMETOLOGY METHOD 09/22/2024 11:19 AM [facility] RBC 4.60 4.50 - 5.50 [facility] LAB HEMETOLOGY METHOD 09/22/2024 11:19 AM [facility] Hemoglobin 14.8 13.5 - 17.5 g/dL LAB HEMETOLOGY METHOD 09/22/2024 11:19 AM [facility] Hematocrit 42.3 42.0 - 54.0 % LAB HEMETOLOGY METHOD 09/22/2024 11:19 AM [facility] MCV 91.8 79.0 - 98.0 FL LAB HEMETOLOGY METHOD 09/22/2024 11:19 AM [facility] MCH 32.1(H) 27.0 - 32.0 pcg LAB HEMETOLOGY METHOD 09/22/2024 11:19 AM [facility] MCHC 35.0 32.0 - 37.0 g/dL LAB HEMETOLOGY METHOD 09/22/2024 11:19 AM EDT [facility] RDW 13.2 11.0 - 15.0 % LAB HEMETOLOGY METHOD 09/22/2024 11:19 AM EDT [facility] Platelets 283 130 - 400 K/mcL LAB HEMETOLOGY METHOD 09/22/2024 11:19 AM EDT [facility] MPV 9.8 7.0 - 11.0 FL LAB HEMETOLOGY METHOD 09/22/2024 11:19 AM EDT [facility] NRBC 0.0 <1.0 % LAB HEMETOLOGY METHOD 09/22/2024 11:19 AM EDT [facility] NRBC Absolute 0.00 <0.10 K/mcL LAB HEMETOLOGY METHOD 09/22/2024 11:19 AM EDT [facility] Blood Venous blood specimen / Unknown Venipuncture / Unknown 09/22/2024 8:47 AM EDT 09/22/2024 10:17 AM EDT us Robert Olivares MD LAB BLOOD ORDERABLES Final Resul t [facility] [address] [place] [address], * C-reactive protein (09/22/2024 8:47 AM EDT) C-Reactive Protein <0.29 <=0.50 mg/dL LAB CHEMISTRY METHOD 09/22/2024 1:01 PM EDT [facility] Blood Venous blood specimen / Unknown Venipuncture / Unknown 09/22/2024 8:47 AM EDT 09/22/2024 10:17 AM EDT us Robert Olivares MD LAB BLOOD ORDERABLES Final Resul t [facility] [address] [place] [address], [place] [phone] * (ABNORMAL) Sedimentation rate (09/22/2024 8:47 AM EDT) Sed Rate 27(H) 0 - 20 mm/hr LAB HEMETOLOGY METHOD 09/22/2024 11:33 AM EDT [facility] Blood Venous blood specimen / Unknown Venipuncture / Unknown 09/22/2024 8:47 AM EDT 09/22/2024 10:17 AM EDT Robert Olivares MD LAB BLOOD ORDERABLES Final Resul t [facility] [address] [place] [address], documented in this encounter Visit Diagnoses Diagnosis Unspecified diastolic (congestive) heart failure (CMS/HCC V24, CMS/HCC V28) documented in this encounter Additional Health Concerns Infection Onset Date Last Indicated Resolved Time ESBL 06/19/2024 06/19/2024 documented as of this encounter Care Teams Qualitative Executive Researcher Relationship Specialty Start Date End Date Asia Appiah PA [address] [address] PCP - General Primary Care 08/15/24 documented as of this encounter
--- OUTSIDE RECORDS SUMMARY | 2025-02-18 12:17 | XMS_ITS | Encounter Summary ---
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 on file Not on file documented as of this encounter Plan of Treatment Upcoming Encounters Date Type Department Care Team (Late st Contact Info) Description 03/04/2025 1:30 PM EDT Consult Orthopedic Surgery - [place] 250 [address] [facility] [address] [place] [phone] Salazar William, FLACA 175 [facility] 250 [place] [address] 03/25/2025 3:30 PM EDT Office Visit Bariatric Surgery - [place] 175 [facility] [address] [place] [phone] Susi Rodriguez PA 230 [place] [address] 04/15/2025 10:30 AM EDT Office Visit Internal Medicine - [place] 175 [facility] 200 [place] [phone] Asia Appiah PA 230 [place] [address] documented as of this encounter Procedures Procedure Name Priority Date/Time Associated Diagnosis Comments SEDIMENTATION RATE Routine 09/15/2024 9: 21 AM EDT Unspecified diastolic (congestive) heart failure (CMS/HCC) COMPLETE BLOOD COUNT Routine 09/15/2024 9:21 AM EDT Unspecified diastolic (congestive) heart failure (CMS/HCC) C-REACTIVE PROTEIN Routine 09/15/2024 9: 21 AM EDT Unspecified diastolic (congestive) heart failure (CMS/HCC) COMPREHENSIVE METABOLIC PANEL Routine 09/15/2024 9:21 AM EDT Unspecified diastolic (congestive) heart failure (CMS/HCC) documented in this encounter Results * (ABNORMAL) Comprehensive metabolic panel (09/15/2024 9:21 AM EDT) Sodium 139 133 - 145 mmol/L LAB CHEMISTRY METHOD 09/15/2024 12:25 PM EDT [facility] Potassium 3.8 3.5 - 5.5 mmol/L LAB CHEMISTRY METHOD 09/15/2024 12:25 PM EDT [facility] Chloride 108 96 - 110 mmol/L LAB CHEMISTRY METHOD 09/15/2024 12:25 PM [facility] CO2 24 21 - 32 mmol/L LAB CHEMISTRY METHOD 09/15/2024 12:25 PM [facility] Anion Gap 7 3 - 11 LAB CHEMISTRY METHOD 09/15/2024 12:25 PM [facility] Glucose 171(H) 70 - 100 mg/dL LAB CHEMISTRY METHOD 09/15/2024 12:25 PM [facility] BUN 13 5 - 25 mg/dL LAB CHEMISTRY METHOD 09/15/2024 12:25 PM [facility] Creatinine 0.76 0.70 - 1.30 mg/dL LAB CHEMISTRY METHOD 09/15/2024 12:25 PM [facility] eGFR 104 >=60 mL/min/1. 73m2 LAB CHEMISTRY METHOD 09/15/2024 12:25 PM [facility] Comment:Calculation based on the Chronic Kidney Disease Epidemiology Collaboration (CKD-EPI) equation refit without adjustment for race. BUN/Creatinine Ratio 17.1 LAB CHEMISTRY METHOD 09/15/2024 12:25 PM [facility] Calcium 8.9 8.5 - 10.5 mg/dL LAB CHEMISTRY METHOD 09/15/2024 12:25 PM [facility] AST (SGOT) 15 10 - 42 unit/L LAB CHEMISTRY METHOD 09/15/2024 12:25 PM [facility] ALT (SGPT) 29 10 - 60 unit/L LAB CHEMISTRY METHOD 09/15/2024 12:25 PM [facility] Alkaline Phosphatase 51 42 - 121 unit/L LAB CHEMISTRY METHOD 09/15/2024 12:25 PM [facility] Total Protein 6.5 6.0 - 8.0 g/dL LAB CHEMISTRY METHOD 09/15/2024 12:25 PM [facility] Albumin 3.1(L) 3.2 - 5.0 g/dL LAB CHEMISTRY METHOD 09/15/2024 12:25 PM EDT [facility] Total Bilirubin 0.2 0.0 - 1.4 mg/dL LAB CHEMISTRY METHOD 09/15/2024 12:25 PM [facility] Blood Venous blood specimen / Unknown Venipuncture / Unknown 09/15/2024 9:21 AM EDT 09/15/2024 10:22 AM EDT us Robert Olivares MD LAB BLOOD ORDERABLES Final Resul t [facility] 299 [place] [address], * (ABNORMAL) Complete blood count (09/15/2024 9:21 AM EDT) WBC 5.0 4.8 - 10.8 K/mcL LAB HEMETOLOGY METHOD 09/15/2024 11:09 AM [facility] RBC 3.90(L) 4.50 - 5.50 M/mcL LAB HEMETOLOGY METHOD 09/15/2024 11:09 AM [facility] Hemoglobin 12.2(L) 13.5 - 17.5 g/dL LAB HEMETOLOGY METHOD 09/15/2024 11:09 AM [facility] Hematocrit 36.2(L) 42.0 - 54.0 % LAB HEMETOLOGY METHOD 09/15/2024 11:09 AM [facility] MCV 93.5 79.0 - 98.0 FL LAB HEMETOLOGY METHOD 09/15/2024 11:09 AM [facility] MCH 31.5 27.0 - 32.0 pcg LAB HEMETOLOGY METHOD 09/15/2024 11:09 AM [facility] MCHC 33.7 32.0 - 37.0 g/dL LAB HEMETOLOGY METHOD 09/15/2024 11:09 AM EDT [facility] RDW 13.1 11.0 - 15.0 % LAB HEMETOLOGY METHOD 09/15/2024 11:09 AM EDT [facility] Platelets 203 130 - 400 K/mcL LAB HEMETOLOGY METHOD 09/15/2024 11:09 AM EDT [facility] MPV 9.9 7.0 - 11.0 FL LAB HEMETOLOGY METHOD 09/15/2024 11:09 AM EDT [facility] NRBC 0.0 <1.0 % LAB HEMETOLOGY METHOD 09/15/2024 11:09 AM EDT [facility] NRBC Absolute 0.00 <0.10 K/mcL LAB HEMETOLOGY METHOD 09/15/2024 11:09 AM EDT [facility] Blood Venous blood specimen / Unknown Venipuncture / Unknown 09/15/2024 9:21 AM EDT 09/15/2024 10:22 AM EDT us Robert Olivares MD LAB BLOOD ORDERABLES Final Resul t [facility] [address] [place] [address], * (ABNORMAL) C-reactive protein (09/15/2024 9:21 AM EDT) C-Reactive Protein 0.57(H) <=0.50 mg/dL LAB CHEMISTRY METHOD 09/15/2024 12:51 PM EDT [facility] Blood Venous blood specimen / Unknown Venipuncture / Unknown 09/15/2024 9:21 AM EDT 09/15/2024 10:22 AM EDT us Robert Olivares MD LAB BLOOD ORDERABLES Final Resul t Performing Organization Address [facility] Co de Phone Number [facility] [address] [place] [address], * (ABNORMAL) Sedimentation rate (09/15/2024 9:21 AM EDT) Sed Rate 24(H) 0 - 20 mm/hr LAB HEMETOLOGY METHOD 09/15/2024 11:21 AM EDT [facility] Blood Venous blood specimen / Unknown Venipuncture / Unknown 09/15/2024 9:21 AM EDT 09/15/2024 10:22 AM EDT Robert Olivares MD LAB BLOOD ORDERABLES Final Resul t Performing Organization Address [facility] Co de Phone Number [facility] [address] [place] [address], documented in this encounter Visit Diagnoses Diagnosis Unspecified diastolic (congestive) heart failure (CMS/HCC V24, CMS/HCC V28) documented in this encounter Additional Health Concerns Infection Onset Date Last Indicated Resolved Time ESBL 06/19/2024 06/19/2024 documented as of this encounter Care Teams Home Day Care Provider Relationship Specialty Start Date End Date Asia Appiah PA [address] [address] PCP - General Primary Care 08/15/24 documented as of this encounter
--- OUTSIDE RECORDS SUMMARY | 2025-02-18 12:17 | XMS_ITS | Encounter Summary ---
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 250 [place] [address] 03/25/2025 3:30 PM EDT Office Visit Bariatric Surgery - [place] 175 [facility] [address] [place] [phone] Susi Rodriguez PA 230 [place] [address] 04/15/2025 10:30 AM EDT Office Visit Internal Medicine - [place] 175 [facility] 200 [place] [phone] Asia Appiah PA 230 [place] [address] documented as of this encounter Procedures Procedure Name Priority Date/Time Associated Diagnosis Comments SEDIMENTATION RATE Routine 09/01/2024 8: 21 AM EDT Unspecified diastolic (congestive) heart failure (CMS/HCC) COMPLETE BLOOD COUNT Routine 09/01/2024 8:21 AM EDT Unspecified diastolic (congestive) heart failure (CMS/HCC) C-REACTIVE PROTEIN Routine 09/01/2024 8: 21 AM EDT Unspecified diastolic (congestive) heart failure (CMS/HCC) COMPREHENSIVE METABOLIC PANEL Routine 09/01/2024 8:21 AM EDT Unspecified diastolic (congestive) heart failure (CMS/HCC) documented in this encounter Results * (ABNORMAL) Comprehensive metabolic panel (09/01/2024 8:21 AM EDT) Sodium 142 133 - 145 mmol/L LAB CHEMISTRY METHOD 09/01/2024 12:[address] [facility] Potassium 4.0 3.5 - 5.5 mmol/L LAB CHEMISTRY METHOD 09/01/2024 12:[address] [facility] Chloride 108 96 - 110 mmol/L LAB CHEMISTRY METHOD 09/01/2024 12:50 PM [facility] CO2 22 21 - 32 mmol/L LAB CHEMISTRY METHOD 09/01/2024 12:50 PM [facility] Anion Gap 12(H) 3 - 11 LAB CHEMISTRY METHOD 09/01/2024 12:50 PM [facility] Glucose 124(H) 70 - 100 mg/dL LAB CHEMISTRY METHOD 09/01/2024 12:50 PM [facility] BUN 13 5 - 25 mg/dL LAB CHEMISTRY METHOD 09/01/2024 12:50 PM [facility] Creatinine 0.77 0.70 - 1.30 mg/dL LAB CHEMISTRY METHOD 09/01/2024 12:50 PM [facility] eGFR 104 >=60 mL/min/1. 73m2 LAB CHEMISTRY METHOD 09/01/2024 12:50 PM [facility] Comment:Calculation based on the Chronic Kidney Disease Epidemiology Collaboration (CKD-EPI) equation refit without adjustment for race. BUN/Creatinine Ratio 16.9 LAB CHEMISTRY METHOD 09/01/2024 12:50 PM [facility] Calcium 9.0 8.5 - 10.5 mg/dL LAB CHEMISTRY METHOD 09/01/2024 12:50 PM [facility] AST (SGOT) 15 10 - 42 unit/L LAB CHEMISTRY METHOD 09/01/2024 12:50 PM [facility] ALT (SGPT) 24 10 - 60 unit/L LAB CHEMISTRY METHOD 09/01/2024 12:50 PM [facility] Alkaline Phosphatase 59 42 - 121 unit/L LAB CHEMISTRY METHOD 09/01/2024 12:50 PM [facility] Total Protein 6.8 6.0 - 8.0 g/dL LAB CHEMISTRY METHOD 09/01/2024 12:50 PM [facility] Albumin 3.3 3.2 - 5.0 g/dL LAB CHEMISTRY METHOD 09/01/2024 12:[address] [facility] Total Bilirubin 0.3 0.0 - 1.4 mg/dL LAB CHEMISTRY METHOD 09/01/2024 12:50 PM [facility] Blood Venous blood specimen / Unknown Venipuncture / Unknown 09/01/2024 8:21 AM EDT 09/01/2024 10:25 AM EDT us Robert Olivares MD LAB BLOOD ORDERABLES Final Resul t [facility] 299 [place] [address], * (ABNORMAL) Complete blood count (09/01/2024 8:21 AM EDT) WBC 6.1 4.8 - 10.8 K/mcL LAB HEMETOLOGY METHOD 09/01/2024 11:05 AM [facility] RBC 4.10(L) 4.50 - 5.50 M/mcL LAB HEMETOLOGY METHOD 09/01/2024 11:05 AM [facility] Hemoglobin 12.9(L) 13.5 - 17.5 g/dL LAB HEMETOLOGY METHOD 09/01/2024 11:05 AM [facility] Hematocrit 37.8(L) 42.0 - 54.0 % LAB HEMETOLOGY METHOD 09/01/2024 11:05 AM [facility] MCV 92.6 79.0 - 98.0 FL LAB HEMETOLOGY METHOD 09/01/2024 11:05 AM [facility] MCH 31.6 27.0 - 32.0 pcg LAB HEMETOLOGY METHOD 09/01/2024 11:05 AM [facility] MCHC 34.1 32.0 - 37.0 g/dL LAB HEMETOLOGY METHOD 09/01/2024 11:[address] [facility] RDW 12.9 11.0 - 15.0 % LAB HEMETOLOGY METHOD 09/01/2024 11:[address] [facility] Platelets 251 130 - 400 K/mcL LAB HEMETOLOGY METHOD 09/01/2024 11:[address] [facility] MPV 9.5 7.0 - 11.0 FL LAB HEMETOLOGY METHOD 09/01/2024 11:[address] [facility] NRBC 0.0 <1.0 % LAB HEMETOLOGY METHOD 09/01/2024 11:[address] [facility] NRBC Absolute 0.00 <0.10 K/mcL LAB HEMETOLOGY METHOD 09/01/2024 11:[address] [facility] Blood Venous blood specimen / Unknown Venipuncture / Unknown 09/01/2024 8:21 AM EDT 09/01/2024 10:25 AM EDT us Robert Olivares MD LAB BLOOD ORDERABLES Final Resul t Performing Organization Address City/State/[facility] Co de Phone Number [facility] [address] [place] [address], * C-reactive protein (09/01/2024 8:21 AM EDT) C-Reactive Protein <0.29 <=0.50 mg/dL LAB CHEMISTRY METHOD 09/01/2024 12:[address] [facility] Blood Venous blood specimen / Unknown Venipuncture / Unknown 09/01/2024 8:21 AM EDT 09/01/2024 10:25 AM EDT us Robert Olivares MD LAB BLOOD ORDERABLES Final Resul t [facility] 299 [place] [address], [place] [phone] * (ABNORMAL) Sedimentation rate (09/01/2024 8:21 AM EDT) Sed Rate 36(H) 0 - 20 mm/hr LAB HEMETOLOGY METHOD 09/01/2024 11:[address] [facility] Blood Venous blood specimen / Unknown Venipuncture / Unknown 09/01/2024 8:21 AM EDT 09/01/2024 10:25 AM EDT us Robert Olivares MD LAB BLOOD ORDERABLES Final Resul t Performing Organization Address [facility] Co de Phone Number [facility] [address] [place] [address], documented in this encounter Visit Diagnoses Diagnosis Unspecified diastolic (congestive) heart failure (CMS/HCC V24, CMS/HCC V28) documented in this encounter Additional Health Concerns Infection Onset Date Last Indicated Resolved Time ESBL 06/19/2024 06/19/2024 documented as of this encounter Care Teams Donkey Doctor Relationship Specialty Start Date End Date Asia Appiah PA [address] [address] PCP - General Primary Care 08/15/24 documented as of this encounter
--- OUTSIDE RECORDS SUMMARY | 2025-02-18 12:17 | XMS_ITS | Encounter Summary ---
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 Not on file Not on file documented as of this encounter Plan of Treatment Upcoming Encounters Date Type Department Care Team (Late st Contact Info) Description 03/04/2025 1:30 PM EDT Consult Orthopedic Surgery - [place] 250 175 [facility] [address] [place] [phone] Salazar William, FLACA 175 [facility] 250 [place] [address] 03/25/2025 3:30 PM EDT Office Visit Bariatric Surgery - [place] 175 [facility] [address] [place] [phone] Susi Rodriguez PA 230 [place] [address] 04/15/2025 10:30 AM EDT Office Visit Internal Medicine - [place] 175 [facility] 200 [place] [phone] Asia Appiah PA 230 [place] [address] documented as of this encounter Procedures Procedure Name Priority Date/Time Associated Diagnosis Comments SEDIMENTATION RATE Routine 09/08/2024 9: 05 AM EDT Unspecified diastolic (congestive) heart failure (CMS/HCC) COMPLETE BLOOD COUNT Routine 09/08/2024 9:05 AM EDT Unspecified diastolic (congestive) heart failure (CMS/HCC) C-REACTIVE PROTEIN Routine 09/08/2024 9: 05 AM EDT Unspecified diastolic (congestive) heart failure (CMS/HCC) COMPREHENSIVE METABOLIC PANEL Routine 09/08/2024 9:05 AM EDT Unspecified diastolic (congestive) heart failure (CMS/HCC) documented in this encounter Results * (ABNORMAL) Comprehensive metabolic panel (09/08/2024 9:05 AM EDT) Sodium 139 133 - 145 mmol/L LAB CHEMISTRY METHOD 09/08/2024 11:11 AM EDT [facility] Potassium 3.9 3.5 - 5.5 mmol/L LAB CHEMISTRY METHOD 09/08/2024 11:11 AM EDT [facility] Chloride 105 96 - 110 mmol/L LAB CHEMISTRY METHOD 09/08/2024 11:11 AM [facility] CO2 23 21 - 32 mmol/L LAB CHEMISTRY METHOD 09/08/2024 11:11 AM [facility] Anion Gap 11 3 - 11 LAB CHEMISTRY METHOD 09/08/2024 11:11 AM [facility] Glucose 137(H) 70 - 100 mg/dL LAB CHEMISTRY METHOD 09/08/2024 11:11 AM [facility] BUN 11 5 - 25 mg/dL LAB CHEMISTRY METHOD 09/08/2024 11:11 AM [facility] Creatinine 0.91 0.70 - 1.30 mg/dL LAB CHEMISTRY METHOD 09/08/2024 11:11 AM [facility] eGFR 98 >=60 mL/min/1. 73m2 LAB CHEMISTRY METHOD 09/08/2024 11:11 AM [facility] Comment:Calculation based on the Chronic Kidney Disease Epidemiology Collaboration (CKD-EPI) equation refit without adjustment for race. BUN/Creatinine Ratio 12.1 LAB CHEMISTRY METHOD 09/08/2024 11:11 AM [facility] Calcium 9.5 8.5 - 10.5 mg/dL LAB CHEMISTRY METHOD 09/08/2024 11:11 AM [facility] AST (SGOT) 18 10 - 42 unit/L LAB CHEMISTRY METHOD 09/08/2024 11:11 AM [facility] ALT (SGPT) 27 10 - 60 unit/L LAB CHEMISTRY METHOD 09/08/2024 11:11 AM [facility] Alkaline Phosphatase 64 42 - 121 unit/L LAB CHEMISTRY METHOD 09/08/2024 11:11 AM [facility] Total Protein 7.6 6.0 - 8.0 g/dL LAB CHEMISTRY METHOD 09/08/2024 11:11 AM [facility] Albumin 3.7 3.2 - 5.0 g/dL LAB CHEMISTRY METHOD 09/08/2024 11:11 AM T [facility] Total Bilirubin 0.7 0.0 - 1.4 mg/dL LAB CHEMISTRY METHOD 09/08/2024 11:11 AM [facility] Blood Venous blood specimen / Unknown Venipuncture / Unknown 09/08/2024 9:05 AM EDT 09/08/2024 10:16 AM EDT us Robert Olivares MD LAB BLOOD ORDERABLES Final Resul t [facility] [address] [place] [address], [place] [phone] * (ABNORMAL) Complete blood count (09/08/2024 9:05 AM EDT) WBC 8.6 4.8 - 10.8 K/mcL LAB HEMETOLOGY METHOD 09/08/2024 10:31 AM [facility] RBC 4.50 4.50 - 5.50 M/mcL LAB HEMETOLOGY METHOD 09/08/2024 10:31 AM [facility] Hemoglobin 14.2 13.5 - 17.5 g/dL LAB HEMETOLOGY METHOD 09/08/2024 10:31 AM [facility] Hematocrit 40.5(L) 42.0 - 54.0 % LAB HEMETOLOGY METHOD 09/08/2024 10:31 AM [facility] MCV 90.2 79.0 - 98.0 FL LAB HEMETOLOGY METHOD 09/08/2024 10:31 AM [facility] MCH 31.6 27.0 - 32.0 pcg LAB HEMETOLOGY METHOD 09/08/2024 10:31 AM [facility] MCHC 35.1 32.0 - 37.0 g/dL LAB HEMETOLOGY METHOD 09/08/2024 10:31 AM EDT [facility] RDW 13.1 11.0 - 15.0 % LAB HEMETOLOGY METHOD 09/08/2024 10:31 AM EDT [facility] Platelets 268 130 - 400 K/mcL LAB HEMETOLOGY METHOD 09/08/2024 10:31 AM EDT [facility] MPV 10.0 7.0 - 11.0 FL LAB HEMETOLOGY METHOD 09/08/2024 10:31 AM EDT [facility] NRBC 0.0 <1.0 % LAB HEMETOLOGY METHOD 09/08/2024 10:31 AM EDT [facility] NRBC Absolute 0.00 <0.10 K/mcL LAB HEMETOLOGY METHOD 09/08/2024 10:31 AM EDT [facility] Blood Venous blood specimen / Unknown Venipuncture / Unknown 09/08/2024 9:05 AM EDT 09/08/2024 10:16 AM EDT us Robert Olivares MD LAB BLOOD ORDERABLES Final Resul t [facility] [address] [place] [address], * C-reactive protein (09/08/2024 9:05 AM EDT) C-Reactive Protein 0.32 <=0.50 mg/dL LAB CHEMISTRY METHOD 09/08/2024 11:04 AM EDT [facility] Blood Venous blood specimen / Unknown Venipuncture / Unknown 09/08/2024 9:05 AM EDT 09/08/2024 10:16 AM EDT us Robert Olivares MD LAB BLOOD ORDERABLES Final Resul t [facility] [address] [place] [address], [place] [phone] * (ABNORMAL) Sedimentation rate (09/08/2024 9:05 AM EDT) Sed Rate 29(H) 0 - 20 mm/hr LAB HEMETOLOGY METHOD 09/08/2024 10:38 AM EDT [facility] Blood Venous blood specimen / Unknown Venipuncture / Unknown 09/08/2024 9:05 AM EDT 09/08/2024 10:16 AM EDT Robert Olivares MD LAB BLOOD ORDERABLES Final Resul t [facility] [address] [place] [address], documented in this encounter Visit Diagnoses Diagnosis Unspecified diastolic (congestive) heart failure (CMS/HCC V24, CMS/HCC V28) documented in this encounter Additional Health Concerns Infection Onset Date Last Indicated Resolved Time ESBL 06/19/2024 06/19/2024 documented as of this encounter Care Teams Manager Freelance Relationship Specialty Start Date End Date Asia Appiah PA [address] [address] PCP - General Primary Care 08/15/24 documented as of this encounter
--- OUTSIDE RECORDS SUMMARY | 2025-02-18 12:17 | XMS_ITS | Encounter Summary ---
Author Organization [facility] Address [address] [place] [address] Care Team Providers Care Cone Examiner Name Role Phone Asia Appiah Primary Care Provider + Encounter Details Date Type Department Care Team (Late st Contact Info) Description 07/16/2024 Lab Requisition [facility] - Main Lab [address] [facility] [place] [address] Robert Olivares MD [address] [place] [address], [phone] Heart failure, unspecified (CMS/HCC V24, CMS/HCC V28) Social History Tobacco [...] Industry Job Start Date Job End Date 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 file Not on file documented as of this encounter Plan of Treatment Upcoming Encounters Date Type Department Care Team (Late Contact Info) Description 03/04/2025 1:30 PM EDT Consult Orthopedic Surgery - [place] 250 175 [facility] [address] [place] [phone] Salazar William, FLACA 175 [facility] 250 [place] [address] 03/25/2025 3:30 PM EDT Office Visit Bariatric Surgery - [place] 175 [facility] [address] [place] [phone] Susi Rodriguez, PA 230 [place] [address] 04/15/2025 10:30 AM EDT Office Visit Internal Medicine - [place] 175 [facility] 200 [place] [phone] Asia Appiah, PA 230 [place] [address] documented as of this encounter Procedures Procedure Name Priority Date/Time Associated Diagnosis Comments BASIC METABOLIC PANEL Routine 07/17/2024 6:03 AM EST Heart failure, unspecified (CMS/HCC) documented in this encounter Results * (ABNORMAL) Basic metabolic panel (07/17/2024 6:03 AM EST) Sodium 137 133 - 145 mmol/L LAB CHEMISTRY METHOD 07/17/2024 10:43 AM [facility] Potassium 4.3 3.5 - 5.5 mmol/L LAB CHEMISTRY METHOD 07/17/2024 10:43 AM [facility] Comment:Hemolysis present Chloride 104 96 - 110 mmol/L LAB CHEMISTRY METHOD 07/17/2024 10:43 AM [facility] CO2 24 21 - 32 mmol/L LAB CHEMISTRY METHOD 07/17/2024 10:43 AM [facility] Anion Gap 9 3 - 11 LAB CHEMISTRY METHOD 07/17/2024 10:43 AM [facility] Glucose 87 70 - 100 mg/dL LAB CHEMISTRY METHOD 07/17/2024 10:43 AM EST [facility] BUN 8 5 - 25 mg/dL LAB CHEMISTRY METHOD 07/17/2024 10:43 AM [facility] Creatinine 0.64(L) 0.70 - 1.30 mg/dL LAB CHEMISTRY METHOD 07/17/2024 10:43 AM [facility] eGFR 110 >=60 mL/min/1. 73m2 LAB CHEMISTRY METHOD 07/17/2024 10:43 AM [facility] Comment:Calculation based on the Chronic Kidney Disease Epidemiology Collaboration (CKD-EPI) equation refit without adjustment for race. BUN/Creatinine Ratio 12.5 LAB CHEMISTRY METHOD 07/17/2024 10:43 AM [facility] Calcium 9.2 8.5 - 10.5 mg/dL LAB CHEMISTRY METHOD 07/17/2024 10:43 AM [facility] Blood Venous blood specimen / Unknown Venipuncture / Unknown 07/17/2024 6:03 AM EST 07/17/2024 9:11 AM EST us Robert Olivares MD LAB BLOOD ORDERABLES Final Resul t [facility] 299 [place] [address], documented in this encounter Visit Diagnoses Diagnosis Heart failure, unspecified (CMS/HCC V24, CMS/HCC V28) Heart failure, unspecified documented in this encounter Additional Health Concerns Infection Onset Date Last Indicated Resolved Time ESBL 06/19/2024 06/19/2024 documented as of this encounter Care Teams Cone Examiner Relationship Specialty Start Date End Date Asia Appiah PA [address] [address] PCP - General Primary Care 08/15/24 documented as of this encounter
--- OUTSIDE RECORDS SUMMARY | 2025-02-18 12:17 | XMS_ITS | Encounter Summary ---
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, CMS/HCC V28); Essential (primary) hypertension Social History Tobacco Use Types Packs/Day Years [...] Industry Job Start Date Job End Date 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 Not on file Not on file documented as of this encounter Plan of Treatment Upcoming Encounters Date Type Department Care Team (Late Contact Info) Description 03/04/2025 1:30 PM EDT Consult Orthopedic Surgery - [place] 250 175 [facility] [address] [place] [phone] Salazar William, DPM 175 [facility] 250 [place] [address] 03/25/2025 3:30 PM EDT Office Visit Bariatric Surgery - [place] 175 [facility] [address] [place] [phone] Susi Rodriguez, PA 230 [place] [address] 04/15/2025 10:30 AM EDT Office Visit Internal Medicine - [place] 175 [facility] 200 [place] [phone] Asia Appiah, PA 230 [place] [address] documented as of this encounter Procedures Procedure Name Priority Date/Time Associated Diagnosis Comments COMPLETE BLOOD COUNT Routine 07/12/2024 6:54 AM EST 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) Essential (primary) hypertension BASIC METABOLIC PANEL Routine 07/12/2024 6:54 AM EST 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) Essential (primary) hypertension documented in this encounter Results * (ABNORMAL) Basic metabolic panel (07/12/2024 6:54 AM EST) Sodium 136 133 - 145 mmol/L LAB CHEMISTRY METHOD 07/12/2024 10:[address] [facility] Potassium 4.2 3.5 - 5.5 mmol/L LAB CHEMISTRY METHOD 07/12/2024 10:[address] [facility] Comment:Hemolysis present Chloride 101 96 - 110 mmol/L LAB CHEMISTRY METHOD 07/12/2024 10:[address] [facility] CO2 27 21 - 32 mmol/L LAB CHEMISTRY METHOD 07/12/2024 10:[address] [facility] Anion Gap 8 3 - 11 LAB CHEMISTRY METHOD 07/12/2024 10:[address] [facility] Glucose 134(H) 70 - 100 mg/dL LAB CHEMISTRY METHOD 07/12/2024 10:[address] [facility] BUN 13 5 - 25 mg/dL LAB CHEMISTRY METHOD 07/12/2024 10:[address] [facility] Creatinine 0.87 0.70 - 1.30 mg/dL LAB CHEMISTRY METHOD 07/12/2024 10:[address] [facility] eGFR 100 >=60 mL/min/1. 73m2 LAB CHEMISTRY METHOD 07/12/2024 10:[address] [facility] Comment:Calculation based on the Chronic Kidney Disease Epidemiology Collaboration (CKD-EPI) equation refit without adjustment for race. BUN/Creatinine Ratio 14.9 LAB CHEMISTRY METHOD 07/12/2024 10:[address] [facility] Calcium 8.8 8.5 - 10.5 mg/dL LAB CHEMISTRY METHOD 07/12/2024 10:[address] [facility] Blood Venous blood specimen / Unknown Venipuncture / Unknown 07/12/2024 6:54 AM EST 07/12/2024 9:01 AM EST us Robert Olivares MD LAB BLOOD ORDERABLES Final Resul t [facility] 299 [place] [address], * (ABNORMAL) Complete blood count (07/12/2024 6:54 AM EST) WBC 6.0 4.8 - 10.8 K/mcL LAB HEMETOLOGY METHOD 07/12/2024 9:[address] [facility] RBC 3.90(L) 4.50 - 5.50 M/mcL LAB HEMETOLOGY METHOD 07/12/2024 9:[address] [facility] Hemoglobin 12.7(L) 13.5 - 17.5 g/dL LAB HEMETOLOGY METHOD 07/12/2024 9:[address] [facility] Hematocrit 38.7(L) 42.0 - 54.0 % LAB HEMETOLOGY METHOD 07/12/2024 9:[address] [facility] MCV 98.2(H) 79.0 - 98.0 FL LAB HEMETOLOGY METHOD 07/12/2024 9:[address] [facility] MCH 32.2(H) 27.0 - 32.0 pcg LAB HEMETOLOGY METHOD 07/12/2024 9:[address] [facility] MCHC 32.8 32.0 - 37.0 g/dL LAB HEMETOLOGY METHOD 07/12/2024 9:[address] [facility] RDW 13.3 11.0 - 15.0 % LAB HEMETOLOGY METHOD 07/12/2024 9:[address] [facility] Platelets 227 130 - 400 K/mcL LAB HEMETOLOGY METHOD 07/12/2024 9:[address] [facility] MPV 9.9 7.0 - 11.0 FL LAB HEMETOLOGY METHOD 07/12/2024 9:[address] [facility] NRBC 0.0 <1.0 % LAB HEMETOLOGY METHOD 07/12/2024 9:[address] [facility] NRBC Absolute 0.00 <0.10 K/mcL LAB HEMETOLOGY METHOD 07/12/2024 9:[address] [facility] Blood Venous blood specimen / Unknown Venipuncture / Unknown 07/12/2024 6:54 AM EST 07/12/2024 9:01 AM EST us Robert Olivares MD LAB BLOOD ORDERABLES Final Resul t [facility] 299 [place] [address], documented in this encounter Visit Diagnoses Diagnosis 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
--- OUTSIDE RECORDS SUMMARY | 2025-02-18 12:17 | XMS_ITS | Encounter Summary ---
Author Organization [facility] Address [address] [place] [address] Care Team Providers Care Production Support Engineer Name Role Phone Asia Appiah Primary Care Provider + Encounter Details Date Type Department Care Team (Late st Contact Info) Description 09/26/[address] 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 Not on file Not on file documented as of this encounter Plan of Treatment Upcoming Encounters Date Type Department Care Team (Late st Contact Info) Description 03/04/2025 1:30 PM EDT Consult Orthopedic Surgery - [place] 250 175 [facility] [address] [place] [address] Salazar William, FLACA 175 [facility] 250 [place] [address] 03/25/2025 3:30 PM EDT Office Visit Bariatric Surgery - [place] 175 [facility] 120 [place] [phone] Susi Rodriguez PA 230 [place] [address] 04/15/2025 10:30 AM EDT Office Visit Internal Medicine - [place] 175 [facility] 200 [place] [phone] Asia Appiah PA 230 [place] [address] documented as of this encounter Visit Diagnoses Diagnosis Unspecified diastolic (congestive) heart failure (CMS/HCC V24, CMS/HCC V28) documented in this encounter Additional Health Concerns Infection Onset Date Last Indicated Resolved Time ESBL 06/19/2024 06/19/2024 documented as of this encounter Care Teams Production Support Engineer Relationship Specialty Start Date End Date Asia Appiah PA 175 [facility] 200 [place] [address] PCP - General Primary Care 08/15/24 documented as of this encounter
--- OUTSIDE RECORDS SUMMARY | 2025-02-18 12:17 | XMS_ITS | Encounter Summary ---
Author Organization [facility] Address [address] [place] [address] Care Team Providers Care Cloth Laminating Supervisor Name Role Phone Asia Appiah Primary Care Provider + Encounter Details Date Type Department Care Team (Late st Contact Info) Description 07/27/2024 Lab Requisition [facility] - Main Lab [address] [facility] [address] 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 on file Not on file Not on file documented as of this encounter Plan of Treatment Upcoming Encounters Date Type Department Care Team (Late st Contact Info) Description 03/04/2025 1:30 PM EDT Consult Orthopedic Surgery - [place] 250 175 [facility] [address] [place] [phone] Salazar William, FLACA 175 [facility] 250 [place] [address] 03/25/2025 3:30 PM EDT Office Visit Bariatric Surgery - [place] 175 [facility] [address] [place] [phone] Susi Rodriguez, PA 230 [place] [address] 04/15/2025 10:30 AM EDT Office Visit Internal Medicine - [place] 175 [facility] 200 [place] [phone] Asia Appiah PA 230 [place] [address] documented as of this encounter Procedures Procedure Name Priority Date/Time Associated Diagnosis Comments SEDIMENTATION RATE Routine 07/28/2024 6: 48 AM EST Unspecified diastolic (congestive) heart failure (CMS/HCC) COMPLETE BLOOD COUNT Routine 07/28/2024 6:48 AM EST Unspecified diastolic (congestive) heart failure (CMS/HCC) C-REACTIVE PROTEIN Routine 07/28/2024 6: 48 AM EST Unspecified diastolic (congestive) heart failure (CMS/HCC) COMPREHENSIVE METABOLIC PANEL Routine 07/28/2024 6:48 AM EST Unspecified diastolic (congestive) heart failure (CMS/HCC) documented in this encounter Results * (ABNORMAL) Comprehensive metabolic panel (07/28/2024 6:48 AM EST) Sodium 138 133 - 145 mmol/L LAB CHEMISTRY METHOD 07/28/2024 1:33 PM EST [facility] Potassium 3.5 3.5 - 5.5 mmol/L LAB CHEMISTRY METHOD 07/28/2024 1:33 PM EST [facility] Chloride 103 96 - 110 mmol/L LAB CHEMISTRY METHOD 07/28/2024 1:[address] [facility] CO2 27 21 - 32 mmol/L LAB CHEMISTRY METHOD 07/28/2024 1:[address] [facility] Anion Gap 8 3 - 11 LAB CHEMISTRY METHOD 07/28/2024 1:[address] [facility] Glucose 127(H) 70 - 100 mg/dL LAB CHEMISTRY METHOD 07/28/2024 1:[address] [facility] BUN 12 5 - 25 mg/dL LAB CHEMISTRY METHOD 07/28/2024 1:[address] [facility] Creatinine 0.81 0.70 - 1.30 mg/dL LAB CHEMISTRY METHOD 07/28/2024 1:[address] [facility] eGFR 102 >=60 mL/min/1. 73m2 LAB CHEMISTRY METHOD 07/28/2024 1:[address] [facility] Comment:Calculation based on the Chronic Kidney Disease Epidemiology Collaboration (CKD-EPI) equation refit without adjustment for race. BUN/Creatinine Ratio 14.8 LAB CHEMISTRY METHOD 07/28/2024 1:[address] [facility] Calcium 8.9 8.5 - 10.5 mg/dL LAB CHEMISTRY METHOD 07/28/2024 1:[address] [facility] AST (SGOT) 12 10 - 42 unit/L LAB CHEMISTRY METHOD 07/28/2024 1:[address] [facility] ALT (SGPT) 26 10 - 60 unit/L LAB CHEMISTRY METHOD 07/28/2024 1:[address] [facility] Alkaline Phosphatase 48 42 - 121 unit/L LAB CHEMISTRY METHOD 07/28/2024 1:[address] [facility] Total Protein 6.4 6.0 - 8.0 g/dL LAB CHEMISTRY METHOD 07/28/2024 1:[address] [facility] Albumin 3.3 3.2 - 5.0 g/dL LAB CHEMISTRY METHOD 07/28/2024 1:[address] [facility] Total Bilirubin 0.3 0.0 - 1.4 mg/dL LAB CHEMISTRY METHOD 07/28/2024 1:[address] [facility] Blood Venous blood specimen / Unknown Venipuncture / Unknown 07/28/2024 6:48 AM EST 07/28/2024 11:19 AM EST us Robert Olivares MD LAB BLOOD ORDERABLES Final Resul t [facility] [address] [place] [address], * (ABNORMAL) Complete blood count (07/28/2024 6:48 AM EST) WBC 5.7 4.8 - 10.8 K/mcL LAB HEMETOLOGY METHOD 07/28/2024 1:[address] [facility] RBC 3.90(L) 4.50 - 5.50 M/mcL LAB HEMETOLOGY METHOD 07/28/2024 1:[address] [facility] Hemoglobin 12.4(L) 13.5 - 17.5 g/dL LAB HEMETOLOGY METHOD 07/28/2024 1:[address] [facility] Hematocrit 37.7(L) 42.0 - 54.0 % LAB HEMETOLOGY METHOD 07/28/2024 1:[address] [facility] MCV 97.4 79.0 - 98.0 FL LAB HEMETOLOGY METHOD 07/28/2024 1:[address] [facility] MCH 32.0 27.0 - 32.0 pcg LAB HEMETOLOGY METHOD 07/28/2024 1:[address] [facility] MCHC 32.9 32.0 - 37.0 g/dL LAB HEMETOLOGY METHOD 07/28/2024 1:[address] [facility] RDW 13.2 11.0 - 15.0 % LAB HEMETOLOGY METHOD 07/28/2024 1:16 PM EST [facility] Platelets 201 130 - 400 K/mcL LAB HEMETOLOGY METHOD 07/28/2024 1:16 PM EST [facility] MPV 9.9 7.0 - 11.0 FL LAB HEMETOLOGY METHOD 07/28/2024 1:16 PM EST [facility] NRBC 0.0 <1.0 % LAB HEMETOLOGY METHOD 07/28/2024 1:16 PM EST [facility] NRBC Absolute 0.00 <0.10 K/mcL LAB HEMETOLOGY METHOD 07/28/2024 1:[address] [facility] Blood Venous blood specimen / Unknown Venipuncture / Unknown 07/28/2024 6:48 AM EST 07/28/2024 11:19 AM EST us Robert Olivares MD LAB BLOOD ORDERABLES Final Resul t Performing Organization Address City/[facility]/ZIP Co de Phone Number [facility] [address] [place] [address], [place] [phone] * (ABNORMAL) C-reactive protein (07/28/2024 6:48 AM EST) C-Reactive Protein 0.83(H) <=0.50 mg/dL LAB CHEMISTRY METHOD 07/28/2024 1:33 PM EST [facility] Blood Venous blood specimen / Unknown Venipuncture / Unknown 07/28/2024 6:48 AM EST 07/28/2024 11:19 AM EST us Robert Olivares MD LAB BLOOD ORDERABLES Final Resul t Performing Organization Address City/[facility]/ZIP Co de Phone Number [facility] [address] [place] [address], [place] [phone] * Sedimentation rate (07/28/2024 6:48 AM EST) Sed Rate 16 0 - 20 mm/hr LAB HEMETOLOGY METHOD 07/28/2024 1:55 PM EST [facility] Blood Venous blood specimen / Unknown Venipuncture / Unknown 07/28/2024 6:48 AM EST 07/28/2024 11:19 AM EST us Robert Olivares MD LAB BLOOD ORDERABLES Final Resul t [facility] [address] [place] [address], documented in this encounter Visit Diagnoses Diagnosis Unspecified diastolic (congestive) heart failure (CMS/HCC V24, CMS/HCC V28) documented in this encounter Additional Health Concerns Infection Onset Date Last Indicated Resolved Time ESBL 06/19/2024 06/19/2024 documented as of this encounter Care Teams Cloth Laminating Supervisor Relationship Specialty Start Date End Date Asia Appiah PA [address] [address] PCP - General Primary Care 08/15/24 documented as of this encounter
--- OUTSIDE RECORDS SUMMARY | 2025-02-18 12:17 | XMS_ITS | Encounter Summary ---
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, CMS/HCC V28); Heart failure, unspecified (CMS/HCC V24, CMS/HCC V28); Essential (primary) hypertension [...] Industry 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 Not on file Not on file documented as of this encounter Plan of Treatment Upcoming Encounters Date Type Department Care Team (Late st Contact Info) Description 03/04/2025 1:30 PM EDT Consult Orthopedic Surgery - [place] [address] [place] [phone] Salazar William, [place]ACA [address] Juan M [address] [place] [address] 03/25/2025 3:30 PM EDT Office Visit Bariatric Surgery - [place] [address] [facility] [address] [place] [phone] Susi Rodriguez PA [address] [place] [address] 04/15/2025 10:30 AM EDT Office Visit Internal Medicine - [place] [address] [facility] [address] [place] [phone] Asia Appiah PA 230 [place] [address] documented as of this encounter Procedures Procedure Name Priority Date/Time Associated Diagnosis Comments CBC WITH AUTO DIFFERENTIAL Routine 07/26/2024 5:49 AM EST Unspecified atrial fibrillation (CMS/HCC) Hematuria, unspecified 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) Heart failure, unspecified (CMS/HCC) Essential (primary) hypertension CULTURE BLOOD Routine 07/26/2024 5:49 AM EST Unspecified atrial fibrillation (CMS/HCC) Hematuria, unspecified 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) Heart failure, unspecified (CMS/HCC) Essential (primary) hypertension CBC AND DIFFERENTIAL Routine 07/26/2024 5:49 AM EST Unspecified atrial fibrillation (CMS/HCC) Hematuria, unspecified 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) Heart failure, unspecified (CMS/HCC) Essential (primary) hypertension documented in this encounter Results * (ABNORMAL) CBC auto differential (07/26/2024 5:49 AM EST) [facility] Signature WBC 6.7 4.8 - 10.8 K/mcL LAB HEMETOLOGY METHOD 07/26/2024 10:21 AM [facility] LAB RBC 4.00(L) 4.50 - 5.50 M/mcL LAB HEMETOLOGY METHOD 07/26/2024 10:21 AM [facility] LAB Hemoglobin 13.1(L) 13.5 - 17.5 g/dL LAB HEMETOLOGY METHOD 07/26/2024 10:21 AM [facility] LAB Hematocrit 38.9(L) 42.0 - 54.0 % LAB HEMETOLOGY METHOD 07/26/2024 10:21 AM [facility] LAB MCV 96.5 79.0 - 98.0 FL LAB HEMETOLOGY METHOD 07/26/2024 10:21 AM [facility] LAB MCH 32.5(H) 27.0 - 32.0 pcg LAB HEMETOLOGY METHOD 07/26/2024 10:21 AM [facility] LAB MCHC 33.7 32.0 - 37.0 g/dL LAB HEMETOLOGY METHOD 07/26/2024 10:21 AM [facility] LAB RDW 13.1 11.0 - 15.0 % LAB HEMETOLOGY METHOD 07/26/2024 10:21 AM [facility] LAB Platelets 251 130 - 400 K/mcL LAB HEMETOLOGY METHOD 07/26/2024 10:21 AM [facility] LAB MPV 10.0 7.0 - 11.0 FL LAB HEMETOLOGY METHOD 07/26/2024 10:21 AM [facility] LAB NRBC 0.0 <1.0 % LAB HEMETOLOGY METHOD 07/26/2024 10:21 AM [facility] LAB NRBC Absolute 0.00 <0.10 K/mcL LAB HEMETOLOGY METHOD 07/26/2024 10:21 AM [facility] LAB Neutrophils Relative 63.9 % LAB HEMETOLOGY METHOD 07/26/2024 10:21 AM [facility] LAB Lymphocytes Relative 18.5 % LAB HEMETOLOGY METHOD 07/26/2024 10:21 AM [facility] LAB Monocytes Relative 11.9 % LAB HEMETOLOGY METHOD 07/26/2024 10:21 AM [facility] LAB Eosinophils Relative 3.9 % LAB HEMETOLOGY METHOD 07/26/2024 10:21 AM [facility] Basophils Relative 0.6 % LAB HEMETOLOGY METHOD 07/26/2024 10:21 AM [facility] LAB Immature Granulocytes Relative 1.2 % LAB HEMETOLOGY METHOD 07/26/2024 10:21 AM [facility] Neutrophils Absolute 4.26 1.50 - 7.00 K/mcL LAB HEMETOLOGY METHOD 07/26/2024 10:21 AM [facility] LAB Lymphocytes Absolute 1.23 1.00 - 5.00 K/mcL LAB HEMETOLOGY METHOD 07/26/2024 10:21 AM [facility] Monocytes Absolute 0.79 0.20 - 1.00 K/mcL LAB HEMETOLOGY METHOD 07/26/2024 10:21 AM [facility] Eosinophils Absolute 0.26 0.00 - 0.50 K/mcL LAB HEMETOLOGY METHOD 07/26/2024 10:21 AM [facility] Basophils Absolute 0.04 0.00 - 0.20 K/mcL LAB HEMETOLOGY METHOD 07/26/2024 10:21 AM [facility] Immature Granulocytes Absolute 0.08(H) 0.00 - 0.03 K/mcL LAB HEMETOLOGY METHOD 07/26/2024 10:21 AM [facility] Blood Venous blood specimen / Unknown Venipuncture / Unknown 07/26/2024 5:49 AM EST 07/26/2024 9:33 AM EST Robert Olivares MD LAB BLOOD ORDERABLES Final Resul t Performing Organization Address [facility] Co de Phone Number [facility] [address] [place] [address], [place] [phone] * Culture blood (07/26/2024 5:49 AM EST) Culture, Blood No growth at 5 days 07/31/2024 11:01 AM EST [facility] Blood Venipuncture / Unknown 07/26/2024 5:49 AM EST 07/26/2024 9:33 AM EST Robert Olivares MD LAB MICROBIOLOGY - GENERAL ORDER REGINO Final Result Performing Organization Address [facility] de Phone Number [facility] [address] [place] [address], [place] [phone] documented in this encounter Visit Diagnoses Diagnosis Unspecified atrial fibrillation (CMS/HCC V24, CMS/HCC V28) Hematuria, unspecified 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
--- OUTSIDE RECORDS SUMMARY | 2025-02-18 12:17 | XMS_ITS | Encounter Summary ---
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 file Not on file documented as of this encounter Plan of Treatment Upcoming Encounters Date Type Department Care Team (Late st Contact Info) Description 03/04/2025 1:30 PM EDT Consult Orthopedic Surgery - [place] [address] [facility] [address] [place] [phone] Salazar William, [place]ACA 175 [facility] 250 [place] [address] 03/25/2025 3:30 PM EDT Office Visit Bariatric Surgery - [place] 175 [facility] 120 [place] [phone] Susi Rodriguez PA 230 [place] [address] 04/15/2025 10:30 AM EDT Office Visit Internal Medicine - [place] 175 [facility] 200 [place] [phone] Asia Appiah PA 230 [place] [address] documented as of this encounter Procedures Procedure Name Priority Date/Time Associated Diagnosis Comments CULTURE BLOOD Routine 07/26/2024 6:02 AM EST Unspecified atrial fibrillation (CMS/HCC) Hematuria, unspecified 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) Heart failure, unspecified (CMS/HCC) Essential (primary) hypertension documented in this encounter Results * Culture blood (07/26/2024 6:02 AM EST) Culture, Blood No growth at 5 days 07/31/2024 11:01 AM EST [facility] Blood Venipuncture / Unknown 07/26/2024 6:02 AM EST 07/26/2024 9:36 AM EST us Robert Olivares MD LAB MICROBIOLOGY - GENERAL ORDER REGINO Final Result [facility] [address] [place] [address], documented in this encounter Visit Diagnoses Diagnosis Unspecified atrial fibrillation ([facility] V24, [facility] V28) Hematuria, unspecified Acute combined systolic (congestive) and diastolic (congestive) heart failure ([facility] V24, [facility] V28) Heart failure, unspecified ([facility] V24, [facility] V28) Heart failure, unspecified Essential (primary) hypertension Unspecified essential hypertension documented in this encounter Additional Health Concerns Infection Onset Date Last Indicated Resolved Time ESBL 06/19/2024 06/19/2024 documented as of this encounter Care Teams Nurse Manager Relationship Specialty Start Date End Date Asia Appiah PA 175 [facility] [address] [place] [address] PCP - General Primary Care 08/15/24 documented as of this encounter
--- OUTSIDE RECORDS SUMMARY | 2025-02-18 12:17 | XMS_ITS | Clinical Summary ---
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 PER PSYCH 07/06/19 23 Active buPROPion XL (WELLBUTRIN XL) 300 mg 24 hr tablet Take 1 Tablet by mouth daily. PER PSYCH 07/06/19 23 Active cetirizine (ZyrTEC) 10 mg tablet Take 1 tablet (10 mg total) by mouth 1 (one) time each day. 11/16/19 23 Active dilTIAZem (TIAZAC) 360 mg 24 hr capsule Take 1 capsule (360 mg total) by mouth 1 (one) time each day. 11/09/19 23 Active escitalopram (LEXAPRO) 10 mg tablet Take 1 tablet (10 mg total) by mouth 1 (one) time each day. 07/06/19 23 Active folic acid (FOLVITE) 1 mg tablet Take 1 tablet (1,000 mcg total) by mouth 1 (one) time each day. 11/09/19 23 Active magnesium oxide (MAG-OX) 400 mg (241.3 elemental magnesium) tablet Take 1 tablet (400 mg total) by mouth at bedtime. 02/03/20 22 Active cholecalciferol (VITAMIN D-3) 50 mcg (2,000 unit) tablet Take 1 tablet (2,000 Units total) by mouth 1 (one) time each day. 11/16/19 23 Active medical supply, miscellaneous (MISCELLANEOUS MEDICAL SUPPLY MIS) by Other route. CPAP Historical (HISTORICAL CPAP) 07/16/19 15 Active ibuprofen (ADVIL,MOTRIN) 800 mg tablet TAKE 1 TABLET BY MOUTH THREE TIMES A DAY WITH FOOD NEEDED FOR MODERATE PAIN 90 tablet 2 05/03/20 24 Active furosemide (LASIX) 40 mg tablet Take 1 tablet (40 mg total) by mouth 1 (one) time each day. Active aspirin 81 mg EC tablet TAKE 1 TABLET BY MOUTH DAILY. 90 tablet 1 09/29/19 25 Active busPIRone (BUSPAR) 15 mg tablet Take 1 tablet (15 mg total) by mouth 3 (three) times a day. Take 1 Tablet by mouth 3 times daily., 90 tablet 1 10/21/19 25 Active fluticasone propionate (FLONASE) 50 mcg/actuation nasal spray Administer 2 sprays into each nostril 1 (one) time each day. 16 g 3 10/24/19 25 Active atorvastatin (LIPITOR) 20 mg tablet Take 1 tablet (20 mg total) by mouth at bedtime. 90 tablet 3 11/01/19 25 Active spironolactone (ALDACTONE) 25 mg tablet Take 1 tablet (25 mg total) by mouth 1 (one) time each day. 10/22/19 25 Active tamsulosin (FLOMAX) 0.4 mg 24 hr capsule Take 2 capsules (0.8 mg total) by mouth 1 (one) time each day. 06/30/19 25 Active b complex vitamins capsule Take 1 capsule by mouth 1 (one) time each day. 90 capsule 3 11/25/19 25 Active cyclobenzaprine (FLEXERIL) 10 mg tablet Take 1 tablet (10 mg total) by mouth 3 (three) times a day if needed for muscle spasms. 90 tablet 1 11/25/19 25 Active multivitamin tablet TAKE 1 TABLET BY MOUTH DAILY 30 tablet 12/23/19 25 Active gabapentin (NEURONTIN) 600 mg tablet Take 1 tablet (600 mg total) by mouth 2 (two) times a day. 180 each 1 12/23/19 25 026 Active multivitamin (Multiple Vitamins) tablet Take 1 tablet by mouth 1 (one) time each day. 90 each 1 12/23/19 25 026 Active losartan (COZAAR) 25 mg tablet Take 1 tablet (25 mg total) by mouth 1 (one) time each day. 11/07/19 24 Active sildenafiL (VIAGRA) 100 mg tabletIndications: Erectile dysfunction, unspecified erectile dysfunction type Take 1/2 to 1 tablet daily prn 30-60 min prior to sexual activity 10 tablet 3 01/07/20 25 Active acetaminophen (TYLENOL) 500 mg tablet Take 1-2 tabs every 8 hours as needed 180 tablet 3 01/15/20 25 Active diphenhydrAMINE (BENADRYL) 25 mg tablet TAKE 1 TO 2 TABLETS BY MOUTH EVERY NIGHT NEEDED FOR SLEEP 60 tablet 2 02/07/20 25 Active diphenhydrAMINE (BENADRYL) 25 mg capsule Take 1-2 pills at bedtime as needed for allergies or insomnia 04/08/20 21 025 Discontinu ed(Ricky te order) sulfacetamide (BLEPH-10) 10 % ophthalmic solutionIndication s:Acute bacterial conjunctivitis of both eyes Administer 2 drops into both eyes 4 (four) times a day for 7 days. 5 mL 02/05/20 25 025 Active Problems Problem Noted Date Diagnosed Date BPH (benign prostatic hyperplasia) 11/27/2024 History of alcohol abuse 11/27/2024 Heart murmur 11/27/2024 History of bioprosthetic tra nscatheter aortic valve implantation (DANNY) 11/27/2024 Left ankle injury 11/27/2024 Left inguinal hernia 11/27/2024 Overview (11/27/2024): -s/p laproscopic converted to open left inguinal hernia repair with mesh 01/08/[address] Minerva Miranda. Rheumatic heart disease 11/27/2024 Generalized hyperhidrosis 07/23/2024 Overview (11/27/2024): Telehealth Visit Dx Code Unsteadiness on feet 07/11/2024 Dizziness and giddiness 07/07/2024 Overview (11/27/2024): Telehealth Visit Dx Code Chronic atrial fibrillation ([facility] V24, [facility]/ C V28) 07/01/2024 Retention of urine 07/01/2024 Hematuria syndrome 06/23/2024 Overview (11/27/2024): Telehealth visit Dx Code Chronic diastolic heart failure ([facility] V24, [facility] S/HCC V28) 06/21/2024 Closed fracture of right ankle 06/20/2024 Chest pain 06/08/2024 Abnormal gait 06/07/2024 Acute pulmonary embolism ([facility] V24, [facility] V 28) 06/07/2024 Closed fracture of lower leg 06/07/2024 Difficulty walking 06/07/2024 Congestive heart failure ([facility] V24, [facility] V 28) 06/07/2024 Muscle weakness 06/07/2024 Obesity (BMI 30-39.9) 03/30/2024 Cyst of left parotid gland 03/14/2024 S/P aortic valve replacement with bioprosthetic valve 12/17/2023 Respiratory failure ([facility] V24, [facility] V28) 0 01/05/2023 Overview (03/30/2024): 01/05/2023 Now much improved Medically cleared to return to work Alcohol use disorder 11/15/2022 Overview (03/30/2024): 01/05/2023 2 weeks sober, goal sober Counseling and [place] again today and counseling re: relapse prevention Has had 4 years, multiple times Very limited social support. 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 Weight 245; BMI 34. AHI 73. 2 Central apneas; 5 Obstructive 5; Hypopneas 385. Average oxygen saturation 90% with oxygen shamika 71%. Obstructive sleep apnea-severe with mostly hypopneas and nocturnal hypoxemia based on 2021 diagnostic polysomnogram. Last Assessment & Plan: Mr. Ga has obstructive sleep apnea since 10 years ago. His machine has not been working well. I order a sleep CPAP titration study January 2022 and the patient weighed 7 months to another study be done but unfortunately they repeat another diagnostic study and they did not do the titration study. I was in the form for more than 10 minutes with sleep medicine services trying to figure it out why they repeat the study. He will need the CPAP titration study in order for us to prescribe a new CPAP or BiPAP machine given his severe desaturations. They will let him know. Vitamin D deficiency 08/14/2017 Hypertriglyceridemia 08/14/2017 Peripheral neuropathy 08/14/2017 Overview (03/30/2024): 11/15/2022 Started on ya 10 years ago, minimal sx, thinks he can stop it Osteoarthritis of left shoulder 08/14/2017 Dupuytren's contracture of left hand 08/14/2017 Anxiety and depression 08/14/2017 Allergic rhinitis 08/14/2017 Deviated nasal septum 08/14/2017 Overview (03/30/2024): ENT referral 09/04/16 Insomnia 08/14/2017 Overview (03/30/2024): 01/05/2023 Much improved with abstinence, +- addition of buspar Reports psych wanted to start doxepin but cards had told him not to take it, not currently Rectus diastasis 08/14/2017 Hypomagnesemia 08/14/2017 Aortic regurgitation 08/14/2017 Overview (03/30/2024): 11/15/2022 S/p porcine valve 2019 No limit in ET Allergic conjunctivitis 05/24/2016 Amblyopia 05/24/2016 Alternating exotropia 05/24/2016 Hyperopia with astigmatism and presbyopia 2015 Basal cell carcinoma of right shoulder 4 Overview (11/27/2024): S/p removal 11/27/13 via [facility]. Right inguinal hernia 06/15/2011 Overview (11/27/2024): -S/p open repair incarcerating right inguinal scrotal hernia with mesh via Dr. Jackson 11/23/11. Dyslipidemia 05/18/2011 Osteoarthritis 05/18/2011 Overview (11/27/2024): F/u [facility]OS. Encounters Date Type Department Care Team Description 02/04/2025 11:15 AM EDT Office Visit Internal Medicine [address] [phone] Asia Appiah PA Acute bacterial conjunctivitis of both eyes (Primary Dx) 01/06/2025 11:15 AM EDT Office Visit Internal Medicine [address] [phone] Asia Appiah PA Primary hypertension (Primary Dx); Hypertriglyceridemia; Anxiety and depression; Obesity (BMI 30-39.9); Benign prostatic hyperplasia, unspecified whether lower urinary tract symptoms present; Erectile dysfunction, unspecified erectile dysfunction type; Ingrown left greater toenail 12/02/2024 9:45 AM EDT Office Visit [facility] Hematology Oncology [address] [place] [address] Arabella Singh DO History of pulmonary embolism (Primary Dx) 11/27/2024 Telephone Internal Medicine - [place] [address] [facility] [address] [place] [address] Asia Appiah PA 11/25/2024 Lab Requisition [facility] - Main Lab [address] [facility] [place] [address] Kevin Hinojosa PA Benign prostatic hyperplasia with lower urinary tract symptoms from Last 3 Months Immunizations Name Administration Dates Next Due Hepatitis A-Hepatitis B Adul t (Twinrix) 18yo and older 11/29/2011,06/15/2011 Hepatitis B (Jzpnaqy-L-Ehicm , Recombivax HB-Adult) 19yo and older 01/09/2018,03/19/2017,02/16/2017,08/28 Influenza Quadravalent, MDCK , 0.5ml, preservative free (Flucelvax) 6mo and older 05/24/2020,04/08/2019,06/17/2018 Influenza trivalent, with pr eservative (Fluzone; Afluria) 6mo and older 03/29/2022,02/16/2017,03/18/2016,03/10 MMR, measles mumps and rubel la Live (Priorix; M-M-R II) 12mo and older 04/08/2012,03/05/2012 Moderna SARS-CoV-2 COVID-19, mRNA, LNP-S, preservative free 12/16/2021 Pneumococcal conjugate 13 va lent (Prevnar 13, PCV13) 2mo and older 05/07/2017 Pneumococcal polysaccharide 23 valent (Pneumovax 23) 2yo and older 01/03/2009 Tdap Tetanus diptheria acell ular pertussis (Boostrix; Adacel) 7yo and older 11/17/2022,03/05/2012 Varicella live (Varivax) 12m o and older 02/29/2012 Surgical History Surgery Date Site/Laterality Comments HERNIA REPAIR 2011 Right PROCEDURE: HISTORICAL HERNIA REPAIR/ING; COMMENT: inguinal scrotal HERNIA REPAIR 01/08/2013 Left PROCEDURE: HISTORICAL HERNIA REPAIR/ING MASS EXCISION 11/27/2013 PROCEDURE: HISTORICAL EXCISION OF MASS; COMMENT: BCC R shoulder TONSILLECTOMY PROCEDURE: HISTORICAL TONSILLECTOMY OTHER SURGICAL HISTORY PROCEDURE: ---- OTHER ----; COMMENT: duypuytren's contracture repair AORTIC VALVE REPLACEMENT 07/23/2019 PROCEDURE: HISTORICAL AORTIC VALVE REPL; COMMENT: Dr. Nair at [facility] OTHER SURGICAL HISTORY PROCEDURE: ARTHROSCOPY PROCEDURE NEC KNEE ARTHROPLASTY 05/31/2021 Right PROCEDURE: DC ARTHRS KNEE ABRASION ARTHRP/PSYCHIATRIC RN DRLG/MICROFX; COMMENT: Dr. Land Medical History Medical History Date Comments Amblyopia 05/24/2016 DX:Amblyopia Hypertension 08/14/2017 DX:Hypertension YAMINI (obstructive sleep apnea) 08/14/2017 DX :YAMINI (obstructive sleep apnea); COMMENT: CPAP Vitamin D deficiency 08/14/2017 DX:Vitamin D deficiency Allergic conjunctivitis 05/24/2016 DX:Aller gic conjunctivitis Alternating exotropia 05/24/2016 DX:Alterna ting exotropia Hyperopia with astigmatism a nd presbyopia 05/24/2016 DX:Hyperopia with astigmatis m and presbyopia History of basal cell carcinoma 08/14/2017 DX:History of basal cell carcinoma; COMMENT: R shoulder. Excision 11/27/13 History of pancreatitis 08/14/2017 DX:Histo ry of pancreatitis Peripheral neuropathy 08/14/2017 DX:Periphe ral neuropathy Osteoarthritis of left shoulder 08/14/2017 DX:Osteoarthritis of left shoulder Dupuytren's contracture of left hand 08/14/2017 DX:Dupuytren's contracture of left hand Anxiety and depression 08/14/2017 DX:Anxiet y and depression Allergic rhinitis 08/14/2017 DX:Allergic rh initis Deviated nasal septum 08/14/2017 DX:Deviate d nasal septum Insomnia 08/14/2017 DX:Insomnia Rectus diastasis 08/14/2017 DX:Rectus diast asis Hypomagnesemia 08/14/2017 DX:Hypomagnesemi a Aortic regurgitation 08/14/2017 DX:Aortic r egurgitation Hypertriglyceridemia 08/14/2017 DX:Hypertri glyceridemia Ventral hernia DX:Ventral herni a Obesity (BMI 30-39.9) DX:Obesity (BMI 30-39.9) Glaucoma suspect of both eyes DX :Glaucoma suspect of both eyes Family History Medical History Relation Name Comments No Known Problems Aunt No Known Problems Brother Parkinson's Disease Father No Known Problems Maternal Grandfather No Known Problems Maternal Grandmother Other: Other Mother No Known Problems Other No Known Problems Paternal Grandfather No Known Problems Paternal Grandmother No Known Problems Sister No Known Problems Uncle Blindness Neg Hx Cataracts Neg Hx Glaucoma Neg Hx Macular degeneration Neg Hx Strabismus Neg Hx Relation Name Status Comments Aunt Brother Father Maternal Grandfather Maternal Grandmother Mother Other Paternal Grandfather Paternal Grandmother Sister Uncle Social History Tobacco Use Types Packs/Day Years Used Date Smoking Tobacco: Former Cigarettes Q uit: 02/08/2019 Smokeless Tobacco: Never Tobacco Cessation:Counseling Given: Not Answered Alcohol Use Standard Drinks/Week Comments Not Currently 0 (1 standard drink = 0.6 oz pur e alcohol) Sex and Gender Information Value Date Recorded Sex Assigned at Not on file Legal Sex Male 6:33 PM EST Gender Identity Not on file Sexual Orientation Not on file 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[place] Not on file Not on file Not on file Obstetrics History Last Filed Vital Signs Vital Sign Reading Time Taken Comments Blood Pressure 120/80 02/04/2025 11:04 AM EDT Pulse 81 02/04/2025 11:04 AM EDT Temperature 36.6 C (97.8 F) 02/04/2025 11:04 AM EDT Respiratory Rate - - Oxygen Saturation 96% 02/04/2025 11:04 AM EDT Inhaled Oxygen Concentration - - Weight 122 kg (269 lb 3.2 oz) 02/04/2025 11:04 A M EDT Height 180.3 cm (5' 11 ) 02/04/2025 11:04 AM EDT Body Mass Index 37.55 02/04/2025 11:04 AM EDT Plan of Treatment Upcoming Encounters Date Type Department Care Team (Late st Contact Info) Description 03/04/2025 1:30 PM EDT Consult Orthopedic Surgery - [place] [address] [facility] [address] [place] [phone] Salazar William, FLACA [address] [facility] [address] [place] [address] 03/25/2025 3:30 PM EDT Office Visit Bariatric Surgery - [place] [address] [facility] [address] [place] [phone] Susi Rodriguez PA [address] [place] [phone] 04/15/2025 10:30 AM EDT Office Visit Internal Medicine - [place] [address] [facility] [address] [place] [phone] Asia Appiah PA [address] [place] [phone] Health Maintenance Due Date Last Done Comments Zoster Vaccines (1 of 2) 04/25/2012 02/29/2012 Hepatitis A Vaccines (3 of 3 - Hep A Twinrix risk 3-dose series) 04/30/2012 11/29/2011, 06/15/2011 Pneumococcal Vaccine: 50+ Years (3 of 3 - PCV20 or PCV21) 05/07/2022 05/07/2017, 01/03/2009 HIV Screening 05/27/2022 Social Influencers of Health Screening 05/27/2022 Depression Screening 06/18/2024 03/22/2024 COVID-19 Vaccine ( season) 2025 03/29/2022, 12/16/2021, 09/08/2020, Additional history exists Influenza Vaccine (#1) 2025 , 04/12/2023, 03/29/2022, Additional history exists Hypertension/CHF/CAD Annual BMP Blood Test 09/22/2025 09/22/2024, 09/15/2024, 09/08/2024, Additional history exists Colorectal Cancer Screening: Colonoscopy 02/16/2028 02/15/2018 Cholesterol Screening (Lipid Panel) 02/11/2029 02/12/2024, 02/12/2024 DTaP,Tdap,and Td Vaccines (4 - Td or Tdap) 11/17/2032 11/17/2022, 11/20/2017, 03/05/2012 Varicella Vaccines Aged Out 02/29/2012 No longer eligible based on patient's age to complete this topic MMR Vaccines Aged Out 04/08/2012, 03/05/2012 No lo nger eligible based on patient's age to complete this topic Hepatitis B Vaccines Completed 01/09/2018, 03/19/2017, 02/16/2017, Additional history exists Hepatitis C Screening Completed 12/09/2023, 017 HIB Vaccines Aged Out No longer eligi ble based on patient's age to complete this topic HPV Vaccines Aged Out No longer eligi ble based on patient's age to complete this topic IPV Vaccines Aged Out No longer eligi ble based on patient's age to complete this topic Meningococcal ACWY Vaccine Aged Out N o longer eligible based on patient's age to complete this topic Meningococcal B Vaccine Aged Out No l onger eligible based on patient's age to complete this topic RSV Immunization Patients Under 20 months Aged Out No longer eligible based on patient's age to complete this topic Procedures Procedure Name Priority Date/Time Associated Diagnosis Comments PROSTATE SPECIFIC ANTIGEN DIAGNOSTIC Routine 11/25/2024 10:27 AM EDT Benign prostatic hyperplasia with lower urinary tract symptoms COMPREHENSIVE METABOLIC PANEL Routine 09/22/2024 8:47 AM EDT Unspecified diastolic (congestive) heart failure (CMS/HCC) DEPRESSION SCREENING Routine 03/22/2024 LIPID PANEL Routine 02/12/2024 COLONOSCOPY Routine 02/15/2018 HEPATITIS C SCREENING Routine 12/11/2016 from Last 3 Months or Most Recently Relevant to Health Maintenance Results * Prostate specific antigen diagnostic (11/25/2024 10:27 AM EDT) PSA 2.79 0.00 - 4.00 ng/mL LAB CHEMISTRY METHOD 11/25/2024 4:09 PM EDT [facility] Blood Venous blood specimen / Unknown 11/25/2024 10:27 AM EDT 11/25/2024 2:14 PM EDT Narrative [facility] - 11/25/2024 4:09 PM EDT The Siemens Advia Centaur Chemiluminescent Immunoassay is used. Results obtained with different assay methods or kits cannot be used interchangeably. Results cannot be interpreted as absolute evidence of the presence or absence of malignant disease. us Kevin LUCAS LAB BLOOD ORDERABLES Final Resul t [facility] [address] [place] [address], * (ABNORMAL) Comprehensive metabolic panel (09/22/2024 8:47 AM EDT) Sodium 139 133 - 145 mmol/L LAB CHEMISTRY METHOD 09/22/2024 1:01 PM [facility] Potassium 3.7 3.5 - 5.5 mmol/L LAB CHEMISTRY METHOD 09/22/2024 1:01 PM [facility] Chloride 105 96 - 110 mmol/L LAB CHEMISTRY METHOD 09/22/2024 1:01 PM [facility] CO2 26 21 - 32 mmol/L LAB CHEMISTRY METHOD 09/22/2024 1:01 PM [facility] Anion Gap 8 3 - 11 LAB CHEMISTRY METHOD 09/22/2024 1:01 PM [facility] Glucose 198(H) 70 - 100 mg/dL LAB CHEMISTRY METHOD 09/22/2024 1:01 PM [facility] BUN 16 5 - 25 mg/dL LAB CHEMISTRY METHOD 09/22/2024 1:01 PM [facility] Creatinine 0.91 0.70 - 1.30 mg/dL LAB CHEMISTRY METHOD 09/22/2024 1:01 PM [facility] eGFR 98 >=60 mL/min/1. 73m2 LAB CHEMISTRY METHOD 09/22/2024 1:01 PM [facility] Comment:Calculation based on the Chronic Kidney Disease Epidemiology Collaboration (CKD-EPI) equation refit without adjustment for race. BUN/Creatinine Ratio 17.6 LAB CHEMISTRY METHOD 09/22/2024 1:01 PM [facility] Calcium 9.0 8.5 - 10.5 mg/dL LAB CHEMISTRY METHOD 09/22/2024 1:01 PM [facility] AST (SGOT) 26 10 - 42 unit/L LAB CHEMISTRY METHOD 09/22/2024 1:01 PM [facility] ALT (SGPT) 36 10 - 60 unit/L LAB CHEMISTRY METHOD 09/22/2024 1:01 PM [facility] Alkaline Phosphatase 68 42 - 121 unit/L LAB CHEMISTRY METHOD 09/22/2024 1:01 PM [facility] Total Protein 7.6 6.0 - 8.0 g/dL LAB CHEMISTRY METHOD 09/22/2024 1:01 PM [facility] Albumin 3.6 3.2 - 5.0 g/dL LAB CHEMISTRY METHOD 09/22/2024 1:01 PM [facility] Total Bilirubin 0.4 0.0 - 1.4 mg/dL LAB CHEMISTRY METHOD 09/22/2024 1:01 PM [facility] Blood Venous blood specimen / Unknown Venipuncture / Unknown 09/22/2024 8:47 AM EDT 09/22/2024 10:17 AM EDT us Robert Olivares MD LAB BLOOD ORDERABLES Final Resul t [facility] [address] [place] [address], * Depression Screening (03/22/2024) [facility] Depression Screening Abstracted [facility] Provider HEALTH MAINTENANCE Final Result * (ABNORMAL) Lipid panel (02/12/2024) [facility] LDL/HDL Ratio 5(A) 0 - 4 Triglycerides 348(A) 0 - 150 mg/dL Cholesterol 160 0 - 200 mg/dL HDL 35(A) >=40 mg/dL LDL Cholesterol 56 0 - 100 mg/dL Blood Venous blood specimen / Unknown Result [facility] Provider LAB BLOOD ORDERABLES Jaquelin l Result * Colonoscopy (02/15/2018) [facility] Colonoscopy No Interpretation , Abstracted Anatomical Region Laterality Modality Other [facility] Provider HEALTH MAINTENANCE Final Result * Hepatitis C Screening (12/11/2016) [facility] Hepatitis C Screening Abstracted [facility] Provider HEALTH MAINTENANCE Final Result from Last 3 Months or Most Recently Relevant to Health Maintenance Additional Health Concerns Infection Onset Date Last Indicated ESBL 06/19/2024 06/19/2024 Insurance [facility] Care Teams Dowel Machine Operator Relationship Specialty Start Date End Date Asia Appiah PA [address] [id number] PCP - General Primary Care 08/15/24
--- OUTSIDE RECORDS SUMMARY | 2025-02-18 12:17 | XMS_ITS | Encounter Summary ---
Author Organization [facility] Address [address] [place] [address] Care Team Providers Care Pharmacoepidemiologist Name Role Phone Asia Appiah Primary Care Provider + Encounter Details Date Type Department Care Team (Late st Contact Info) Description 07/19/[address] 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 file Not on file Not on file documented as of this encounter Plan of Treatment Upcoming Encounters Date Type Department Care Team (Late st Contact Info) Description 03/04/2025 1:30 PM EDT Consult Orthopedic Surgery - [place] 250 [address] [facility] [address] [place] [phone] Salazar William, FLACA 175 [facility] 250 [place] [address] 03/25/2025 3:30 PM EDT Office Visit Bariatric Surgery - [place] 175 [facility] [address] [place] [phone] Susi Rodriguez PA [address] [place] [address] 04/15/2025 10:30 AM EDT Office Visit Internal Medicine - [place] 175 [facility] 200 [place] [phone] Asia Appiah PA 230 [place] [address] documented as of this encounter Procedures Procedure Name Priority Date/Time Associated Diagnosis Comments COMPLETE BLOOD COUNT Routine 07/21/2024 7:12 AM EST Essential (primary) hypertension Heart failure, unspecified (CMS/HCC) BASIC METABOLIC PANEL Routine 07/21/2024 7:12 AM EST Essential (primary) hypertension Heart failure, unspecified (CMS/HCC) documented in this encounter Results * Basic metabolic panel (07/21/2024 7:12 AM EST) Sodium 138 133 - 145 mmol/L LAB CHEMISTRY METHOD 07/21/2024 1:24 PM EST [facility] Potassium 3.7 3.5 - 5.5 mmol/L LAB CHEMISTRY METHOD 07/21/2024 1:24 PM EST [facility] Chloride 103 96 - 110 mmol/L LAB CHEMISTRY METHOD 07/21/2024 1:24 PM [facility] CO2 26 21 - 32 mmol/L LAB CHEMISTRY METHOD 07/21/2024 1:24 PM [facility] Anion Gap 9 3 - 11 LAB CHEMISTRY METHOD 07/21/2024 1:24 PM [facility] Glucose 98 70 - 100 mg/dL LAB CHEMISTRY METHOD 07/21/2024 1:24 PM [facility] BUN 12 5 - 25 mg/dL LAB CHEMISTRY METHOD 07/21/2024 1:24 PM [facility] Creatinine 0.73 0.70 - 1.30 mg/dL LAB CHEMISTRY METHOD 07/21/2024 1:24 PM [facility] eGFR 105 >=60 mL/min/1. 73m2 LAB CHEMISTRY METHOD 07/21/2024 1:24 PM [facility] Comment:Calculation based on the Chronic Kidney Disease Epidemiology Collaboration (CKD-EPI) equation refit without adjustment for race. BUN/Creatinine Ratio 16.4 LAB CHEMISTRY METHOD 07/21/2024 1:24 PM [facility] Calcium 8.7 8.5 - 10.5 mg/dL LAB CHEMISTRY METHOD 07/21/2024 1:24 PM [facility] Blood Venous blood specimen / Unknown Venipuncture / Unknown 07/21/2024 7:12 AM EST 07/21/2024 11:27 AM EST us Robert Olivares MD LAB BLOOD ORDERABLES Final Resul t [facility] 299 [place] [address], * (ABNORMAL) Complete blood count (07/21/2024 7:12 AM EST) WBC 5.2 4.8 - 10.8 K/mcL LAB HEMETOLOGY METHOD 07/21/2024 12:25 PM [facility] RBC 3.90(L) 4.50 - 5.50 M/mcL LAB HEMETOLOGY METHOD 07/21/2024 12:25 PM [facility] Hemoglobin 12.6(L) 13.5 - 17.5 g/dL LAB HEMETOLOGY METHOD 07/21/2024 12:25 PM EST [facility] Hematocrit 38.1(L) 42.0 - 54.0 % LAB HEMETOLOGY METHOD 07/21/2024 12:25 PM [facility] MCV 97.4 79.0 - 98.0 FL LAB HEMETOLOGY METHOD 07/21/2024 12:25 PM EST [facility] MCH 32.2(H) 27.0 - 32.0 pcg LAB HEMETOLOGY METHOD 07/21/2024 12:25 PM EST [facility] MCHC 33.1 32.0 - 37.0 g/dL LAB HEMETOLOGY METHOD 07/21/2024 12:25 PM [facility] RDW 13.2 11.0 - 15.0 % LAB HEMETOLOGY METHOD 07/21/2024 12:25 PM [facility] Platelets 231 130 - 400 K/mcL LAB HEMETOLOGY METHOD 07/21/2024 12:25 PM [facility] MPV 9.8 7.0 - 11.0 FL LAB HEMETOLOGY METHOD 07/21/2024 12:25 PM [facility] NRBC 0.0 <1.0 % LAB HEMETOLOGY METHOD 07/21/2024 12:25 PM [facility] NRBC Absolute 0.00 <0.10 K/mcL LAB HEMETOLOGY METHOD 07/21/2024 12:25 PM [facility] Blood Venous blood specimen / Unknown Venipuncture / Unknown 07/21/2024 7:12 AM EST 07/21/2024 11:27 AM EST us Robert Olivares MD LAB BLOOD ORDERABLES Final Resul t [facility] [address] [place] [address], [place] [phone] documented in this encounter Visit Diagnoses Diagnosis Essential (primary) hypertension Unspecified essential hypertension Heart failure, unspecified (CMS/[facility] V24, [facility] V28) Heart failure, unspecified documented in this encounter Additional Health Concerns Infection Onset Date Last Indicated Resolved Time ESBL 06/19/2024 06/19/2024 documented as of this encounter Care Teams Pharmacoepidemiologist Relationship Specialty Start Date End Date Asia Appiah PA [address] [place] [id number] PCP - General Primary Care 08/15/24 documented as of this encounter
--- OUTSIDE RECORDS SUMMARY | 2025-02-18 12:17 | XMS_ITS | Encounter Summary ---
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 Not on file Not on file documented as of this encounter Plan of Treatment Upcoming Encounters Date Type Department Care Team (Late st Contact Info) Description 03/04/2025 1:30 PM EDT Consult Orthopedic Surgery - [place] 250 175 [facility] [address] [place] [phone] Salazar William, [place]ACA 175 [facility] Juan M 250 [place] [address] 03/25/2025 3:30 PM EDT Office Visit Bariatric Surgery - [place] 175 [facility] [address] [place] [phone] Susi Rodriguez, PA [address] [place] [address] 04/15/2025 10:30 AM EDT Office Visit Internal Medicine - [place] 175 [facility] 200 [place] [phone] Asia Appiah PA 230 [place] [address] documented as of this encounter Procedures Procedure Name Priority Date/Time Associated Diagnosis Comments SEDIMENTATION RATE Routine 08/25/2024 9: 20 AM EDT Unspecified diastolic (congestive) heart failure (CMS/HCC) COMPLETE BLOOD COUNT Routine 08/25/2024 9:20 AM EDT Unspecified diastolic (congestive) heart failure (CMS/HCC) C-REACTIVE PROTEIN Routine 08/25/2024 9: 20 AM EDT Unspecified diastolic (congestive) heart failure (CMS/HCC) COMPREHENSIVE METABOLIC PANEL Routine 08/25/2024 9:20 AM EDT Unspecified diastolic (congestive) heart failure (CMS/HCC) documented in this encounter Results * (ABNORMAL) Comprehensive metabolic panel (08/25/2024 9:20 AM EDT) Sodium 140 133 - 145 mmol/L LAB CHEMISTRY METHOD 08/25/2024 12:25 PM EDT [facility] Potassium 3.8 3.5 - 5.5 mmol/L LAB CHEMISTRY METHOD 08/25/2024 12:25 PM EDT [facility] Chloride 107 96 - 110 mmol/L LAB CHEMISTRY METHOD 08/25/2024 12:25 PM [facility] CO2 23 21 - 32 mmol/L LAB CHEMISTRY METHOD 08/25/2024 12:25 PM [facility] Anion Gap 10 3 - 11 LAB CHEMISTRY METHOD 08/25/2024 12:25 PM [facility] Glucose 130(H) 70 - 100 mg/dL LAB CHEMISTRY METHOD 08/25/2024 12:25 PM [facility] BUN 10 5 - 25 mg/dL LAB CHEMISTRY METHOD 08/25/2024 12:25 PM [facility] Creatinine 0.74 0.70 - 1.30 mg/dL LAB CHEMISTRY METHOD 08/25/2024 12:25 PM [facility] eGFR 105 >=60 mL/min/1. 73m2 LAB CHEMISTRY METHOD 08/25/2024 12:25 PM [facility] Comment:Calculation based on the Chronic Kidney Disease Epidemiology Collaboration (CKD-EPI) equation refit without adjustment for race. BUN/Creatinine Ratio 13.5 LAB CHEMISTRY METHOD 08/25/2024 12:25 PM [facility] Calcium 8.7 8.5 - 10.5 mg/dL LAB CHEMISTRY METHOD 08/25/2024 12:25 PM [facility] AST (SGOT) 24 10 - 42 unit/L LAB CHEMISTRY METHOD 08/25/2024 12:25 PM [facility] ALT (SGPT) 30 10 - 60 unit/L LAB CHEMISTRY METHOD 08/25/2024 12:25 PM [facility] Alkaline Phosphatase 51 42 - 121 unit/L LAB CHEMISTRY METHOD 08/25/2024 12:25 PM [facility] Total Protein 6.7 6.0 - 8.0 g/dL LAB CHEMISTRY METHOD 08/25/2024 12:25 PM [facility] Albumin 3.2 3.2 - 5.0 g/dL LAB CHEMISTRY METHOD 08/25/2024 12:25 PM T [facility] Total Bilirubin 0.3 0.0 - 1.4 mg/dL LAB CHEMISTRY METHOD 08/25/2024 12:25 PM [facility] Blood Venous blood specimen / Unknown Venipuncture / Unknown 08/25/2024 9:20 AM EDT 08/25/2024 10:22 AM EDT us Robert Olivares MD LAB BLOOD ORDERABLES Final Resul t [facility] 299 [place] [address], [place] [phone] * (ABNORMAL) Complete blood count (08/25/2024 9:20 AM EDT) WBC 4.5(L) 4.8 - 10.8 K/mcL LAB HEMETOLOGY METHOD 08/25/2024 11:49 AM [facility] RBC 4.10(L) 4.50 - 5.50 M/mcL LAB HEMETOLOGY METHOD 08/25/2024 11:49 AM [facility] Hemoglobin 13.0(L) 13.5 - 17.5 g/dL LAB HEMETOLOGY METHOD 08/25/2024 11:49 AM [facility] Hematocrit 38.2(L) 42.0 - 54.0 % LAB HEMETOLOGY METHOD 08/25/2024 11:49 AM [facility] MCV 93.6 79.0 - 98.0 FL LAB HEMETOLOGY METHOD 08/25/2024 11:49 AM [facility] MCH 31.9 27.0 - 32.0 pcg LAB HEMETOLOGY METHOD 08/25/2024 11:49 AM [facility] MCHC 34.0 32.0 - 37.0 g/dL LAB HEMETOLOGY METHOD 08/25/2024 11:49 AM EDT [facility] RDW 13.1 11.0 - 15.0 % LAB HEMETOLOGY METHOD 08/25/2024 11:49 AM EDT [facility] Platelets 204 130 - 400 K/mcL LAB HEMETOLOGY METHOD 08/25/2024 11:49 AM EDT [facility] MPV 10.0 7.0 - 11.0 FL LAB HEMETOLOGY METHOD 08/25/2024 11:49 AM EDT [facility] NRBC 0.0 <1.0 % LAB HEMETOLOGY METHOD 08/25/2024 11:49 AM EDT [facility] NRBC Absolute 0.00 <0.10 K/mcL LAB HEMETOLOGY METHOD 08/25/2024 11:49 AM EDT [facility] Blood Venous blood specimen / Unknown Venipuncture / Unknown 08/25/2024 9:20 AM EDT 08/25/2024 10:22 AM EDT us Robert Olivares MD LAB BLOOD ORDERABLES Final Resul t Performing Organization Address City/[facility] Co de Phone Number [facility] [address] [place] [address], * C-reactive protein (08/25/2024 9:20 AM EDT) Pathologist [facility] C-Reactive Protein 0.47 <=0.50 mg/dL LAB CHEMISTRY METHOD 08/25/2024 12:26 PM EDT [facility] Blood Venous blood specimen / Unknown Venipuncture / Unknown 08/25/2024 9:20 AM EDT 08/25/2024 10:22 AM EDT us Robert Olivares MD LAB BLOOD ORDERABLES Final Resul t [facility] [address] [place] [address], [place] [phone] * (ABNORMAL) Sedimentation rate (08/25/2024 9:20 AM EDT) Sed Rate 21(H) 0 - 20 mm/hr LAB HEMETOLOGY METHOD 08/25/2024 12:01 PM EDT [facility] Blood Venous blood specimen / Unknown Venipuncture / Unknown 08/25/2024 9:20 AM EDT 08/25/2024 10:22 AM EDT Robert Olivares MD LAB BLOOD ORDERABLES Final Resul t Performing Organization Address [facility] Co de Phone Number [facility] [address] [place] [address], documented in this encounter Visit Diagnoses Diagnosis Unspecified diastolic (congestive) heart failure (CMS/HCC V24, CMS/HCC V28) documented in this encounter Additional Health Concerns Infection Onset Date Last Indicated Resolved Time ESBL 06/19/2024 06/19/2024 documented as of this encounter Care Teams Net Repairer Relationship Specialty Start Date End Date Asia Appiah PA [address] [address] PCP - General Primary Care 08/15/24 documented as of this encounter
--- OUTSIDE RECORDS SUMMARY | 2025-02-18 12:17 | XMS_ITS | Encounter Summary ---
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 Not on file Not on file documented as of this encounter Plan of Treatment Upcoming Encounters Date Type Department Care Team (Late st Contact Info) Description 03/04/2025 1:30 PM EDT Consult Orthopedic Surgery - [place] 250 175 [facility] [address] [place] [phone] Salazar William, [place]ACA 175 [facility] 250 [place] [address] 03/25/2025 3:30 PM EDT Office Visit Bariatric Surgery - [place] 175 [facility] [address] [place] [phone] Susi Rodriguez PA [address] [place] [address] 04/15/2025 10:30 AM EDT Office Visit Internal Medicine - [place] 175 [facility] 200 [place] [phone] Asia Appiah PA 230 [place] [address] documented as of this encounter Procedures Procedure Name Priority Date/Time Associated Diagnosis Comments SEDIMENTATION RATE Routine 08/11/2024 6: 39 AM EST Unspecified diastolic (congestive) heart failure (CMS/HCC) COMPLETE BLOOD COUNT Routine 08/11/2024 6:39 AM EST Unspecified diastolic (congestive) heart failure (CMS/HCC) C-REACTIVE PROTEIN Routine 08/11/2024 6: 39 AM EST Unspecified diastolic (congestive) heart failure (CMS/HCC) COMPREHENSIVE METABOLIC PANEL Routine 08/11/2024 6:39 AM EST Unspecified diastolic (congestive) heart failure (CMS/HCC) documented in this encounter Results * (ABNORMAL) Comprehensive metabolic panel (08/11/2024 6:39 AM EST) Sodium 137 133 - 145 mmol/L LAB CHEMISTRY METHOD 08/11/2024 12:39 PM EST [facility] Potassium 3.4(L) 3.5 - 5.5 mmol/L LAB CHEMISTRY METHOD 08/11/2024 12:39 PM EST [facility] Chloride 104 96 - 110 mmol/L LAB CHEMISTRY METHOD 08/11/2024 12:39 PM [facility] CO2 26 21 - 32 mmol/L LAB CHEMISTRY METHOD 08/11/2024 12:39 PM [facility] Anion Gap 7 3 - 11 LAB CHEMISTRY METHOD 08/11/2024 12:39 PM [facility] Glucose 116(H) 70 - 100 mg/dL LAB CHEMISTRY METHOD 08/11/2024 12:39 PM [facility] BUN 15 5 - 25 mg/dL LAB CHEMISTRY METHOD 08/11/2024 12:39 PM [facility] Creatinine 0.82 0.70 - 1.30 mg/dL LAB CHEMISTRY METHOD 08/11/2024 12:39 PM [facility] eGFR 102 >=60 mL/min/1. 73m2 LAB CHEMISTRY METHOD 08/11/2024 12:39 PM [facility] Comment:Calculation based on the Chronic Kidney Disease Epidemiology Collaboration (CKD-EPI) equation refit without adjustment for race. BUN/Creatinine Ratio 18.3 LAB CHEMISTRY METHOD 08/11/2024 12:39 PM [facility] Calcium 9.1 8.5 - 10.5 mg/dL LAB CHEMISTRY METHOD 08/11/2024 12:39 PM [facility] AST (SGOT) 16 10 - 42 unit/L LAB CHEMISTRY METHOD 08/11/2024 12:39 PM [facility] ALT (SGPT) 26 10 - 60 unit/L LAB CHEMISTRY METHOD 08/11/2024 12:39 PM [facility] Alkaline Phosphatase 50 42 - 121 unit/L LAB CHEMISTRY METHOD 08/11/2024 12:39 PM [facility] Total Protein 6.9 6.0 - 8.0 g/dL LAB CHEMISTRY METHOD 08/11/2024 12:39 PM [facility] Albumin 3.5 3.2 - 5.0 g/dL LAB CHEMISTRY METHOD 08/11/2024 12:39 PM EST [facility] Total Bilirubin 0.3 0.0 - 1.4 mg/dL LAB CHEMISTRY METHOD 08/11/2024 12:39 PM [facility] Blood Venous blood specimen / Unknown Venipuncture / Unknown 08/11/2024 6:39 AM EST 08/11/2024 11:40 AM EST us Robert Olivares MD LAB BLOOD ORDERABLES Final Resul t [facility] [address] [place] [address], * (ABNORMAL) Complete blood count (08/11/2024 6:39 AM EST) WBC 5.6 4.8 - 10.8 K/mcL LAB HEMETOLOGY METHOD 08/11/2024 12:50 PM [facility] RBC 4.10(L) 4.50 - 5.50 M/mcL LAB HEMETOLOGY METHOD 08/11/2024 12:50 PM [facility] Hemoglobin 13.3(L) 13.5 - 17.5 g/dL LAB HEMETOLOGY METHOD 08/11/2024 12:50 PM [facility] Hematocrit 40.1(L) 42.0 - 54.0 % LAB HEMETOLOGY METHOD 08/11/2024 12:50 PM [facility] MCV 98.5(H) 79.0 - 98.0 FL LAB HEMETOLOGY METHOD 08/11/2024 12:50 PM [facility] MCH 32.7(H) 27.0 - 32.0 pcg LAB HEMETOLOGY METHOD 08/11/2024 12:50 PM [facility] MCHC 33.2 32.0 - 37.0 g/dL LAB HEMETOLOGY METHOD 08/11/2024 12:50 PM EST [facility] RDW 13.2 11.0 - 15.0 % LAB HEMETOLOGY METHOD 08/11/2024 12:50 PM EST [facility] Platelets 218 130 - 400 K/mcL LAB HEMETOLOGY METHOD 08/11/2024 12:50 PM [facility] MPV 9.7 7.0 - 11.0 FL LAB HEMETOLOGY METHOD 08/11/2024 12:50 PM [facility] NRBC 0.0 <1.0 % LAB HEMETOLOGY METHOD 08/11/2024 12:50 PM [facility] NRBC Absolute 0.00 <0.10 K/mcL LAB HEMETOLOGY METHOD 08/11/2024 12:50 PM [facility] Blood Venous blood specimen / Unknown Venipuncture / Unknown 08/11/2024 6:39 AM EST 08/11/2024 11:40 AM EST us Robert Olivares MD LAB BLOOD ORDERABLES Final Resul t [facility] [address] [place] [address], [place] [phone] * C-reactive protein (08/11/2024 6:39 AM EST) C-Reactive Protein 0.34 <=0.50 mg/dL LAB CHEMISTRY METHOD 08/11/2024 12:35 PM EST [facility] Blood Venous blood specimen / Unknown Venipuncture / Unknown 08/11/2024 6:39 AM EST 08/11/2024 11:40 AM EST us Robert Olivares MD LAB BLOOD ORDERABLES Final Resul t [facility] [address] [place] [address], [place] [phone] * (ABNORMAL) Sedimentation rate (08/11/2024 6:39 AM EST) Sed Rate 23(H) 0 - 20 mm/hr LAB HEMETOLOGY METHOD 08/11/2024 12:57 PM EST [facility] Blood Venous blood specimen / Unknown Venipuncture / Unknown 08/11/2024 6:39 AM EST 08/11/2024 11:40 AM EST us Roebrt Olivares MD LAB BLOOD ORDERABLES Final Resul t [facility] [address] [place] [address], documented in this encounter Visit Diagnoses Diagnosis Unspecified diastolic (congestive) heart failure (CMS/HCC V24, CMS/HCC V28) documented in this encounter Additional Health Concerns Infection Onset Date Last Indicated Resolved Time ESBL 06/19/2024 06/19/2024 documented as of this encounter Care Teams Batch Unit Treater Relationship Specialty Start Date End Date Asia Appiah PA [address] [address] PCP - General Primary Care 08/15/24 documented as of this encounter
--- OUTSIDE RECORDS SUMMARY | 2025-02-18 12:17 | XMS_ITS | Encounter Summary ---
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 Not on file Not on file documented as of this encounter Plan of Treatment Upcoming Encounters Date Type Department Care Team (Late Contact Info) Description 03/04/2025 1:30 PM EDT Consult Orthopedic Surgery - [place] 250 175 [facility] 250 [place] [phone] Salazar William, DPM 175 [facility] 250 [place] [address] 03/25/2025 3:30 PM EDT Office Visit Bariatric Surgery - [place] 175 [facility] 120 [place] [phone] Susi Rodriguez PA 230 [place] [address] 04/15/2025 10:30 AM EDT Office Visit Internal Medicine - [place] 175 [facility] 200 [place] [phone] Asia Appiah PA 230 [place] [address] documented as of this encounter Procedures Procedure Name Priority Date/Time Associated Diagnosis Comments CBC WITH AUTO DIFFERENTIAL Routine 07/23/2024 5:32 AM EST Essential (primary) hypertension CBC AND DIFFERENTIAL Routine 07/23/2024 5:32 AM EST Essential (primary) hypertension COMPREHENSIVE METABOLIC PANEL Routine 07/23/2024 5:32 AM EST Essential (primary) hypertension documented in this encounter Results * (ABNORMAL) CBC auto differential (07/23/2024 5:32 AM EST) WBC 5.9 4.8 - 10.8 K/mcL LAB HEMETOLOGY METHOD 07/23/2024 10:37 AM [facility] RBC 3.80(L) 4.50 - 5.50 M/mcL LAB HEMETOLOGY METHOD 07/23/2024 10:37 AM [facility] Hemoglobin 12.3(L) 13.5 - 17.5 g/dL LAB HEMETOLOGY METHOD 07/23/2024 10:37 AM [facility] Hematocrit 36.4(L) 42.0 - 54.0 % LAB HEMETOLOGY METHOD 07/23/2024 10:37 AM [facility] MCV 95.5 79.0 - 98.0 FL LAB HEMETOLOGY METHOD 07/23/2024 10:37 AM [facility] MCH 32.3(H) 27.0 - 32.0 pcg LAB HEMETOLOGY METHOD 07/23/2024 10:37 AM [facility] MCHC 33.8 32.0 - 37.0 g/dL LAB HEMETOLOGY METHOD 07/23/2024 10:37 AM [facility] RDW 13.1 11.0 - 15.0 % LAB HEMETOLOGY METHOD 07/23/2024 10:37 AM [facility] Platelets 224 130 - 400 K/mcL LAB HEMETOLOGY METHOD 07/23/2024 10:37 AM [facility] MPV 9.8 7.0 - 11.0 FL LAB HEMETOLOGY METHOD 07/23/2024 10:37 AM [facility] NRBC 0.0 <1.0 % LAB HEMETOLOGY METHOD 07/23/2024 10:37 AM [facility] NRBC Absolute 0.00 <0.10 K/mcL LAB HEMETOLOGY METHOD 07/23/2024 10:37 AM [facility] Neutrophils Relative 52.4 % LAB HEMETOLOGY METHOD 07/23/2024 10:37 AM [facility] Lymphocytes Relative 26.0 % LAB HEMETOLOGY METHOD 07/23/2024 10:37 AM [facility] Monocytes Relative 14.2 % LAB HEMETOLOGY METHOD 07/23/2024 10:37 AM [facility] Eosinophils Relative 3.7 % LAB HEMETOLOGY METHOD 07/23/2024 10:37 AM [facility] Basophils Relative 0.8 % LAB HEMETOLOGY METHOD 07/23/2024 10:37 AM [facility] Immature Granulocytes Relative 2.9 % LAB HEMETOLOGY METHOD 07/23/2024 10:37 AM EST [facility] Neutrophils Absolute 3.11 1.50 - 7.00 K/[facility] LAB HEMETOLOGY METHOD 07/23/2024 10:37 AM EST [facility] Lymphocytes Absolute 1.54 1.00 - 5.00 K/[facility] LAB HEMETOLOGY METHOD 07/23/2024 10:37 AM EST [facility] Monocytes Absolute 0.84 0.20 - 1.00 K/[facility] LAB HEMETOLOGY METHOD 07/23/2024 10:37 AM EST [facility] Eosinophils Absolute 0.22 0.00 - 0.50 K/[facility] LAB HEMETOLOGY METHOD 07/23/2024 10:37 AM EST [facility] Basophils Absolute 0.05 0.00 - 0.20 K/mcL LAB HEMETOLOGY METHOD 07/23/2024 10:37 AM EST [facility] Immature Granulocytes Absolute 0.17(H) 0.00 - 0.03 K/mcL LAB HEMETOLOGY METHOD 07/23/2024 10:37 AM [facility] Blood Venous blood specimen / Unknown Venipuncture / Unknown 07/23/2024 5:32 AM EST 07/23/2024 9:53 AM EST us Robert Olivares MD LAB BLOOD ORDERABLES Final Resul t [facility] 299 [place] [address], * (ABNORMAL) Comprehensive metabolic panel (07/23/2024 5:32 AM EST) Sodium 134 133 - 145 mmol/L LAB CHEMISTRY METHOD 07/23/2024 10:55 AM EST [facility] Potassium 3.7 3.5 - 5.5 mmol/L LAB CHEMISTRY METHOD 07/23/2024 10:55 AM [facility] Chloride 100 96 - 110 mmol/L LAB CHEMISTRY METHOD 07/23/2024 10:55 AM [facility] CO2 28 21 - 32 mmol/L LAB CHEMISTRY METHOD 07/23/2024 10:55 AM [facility] Anion Gap 6 3 - 11 LAB CHEMISTRY METHOD 07/23/2024 10:55 AM [facility] Glucose 136(H) 70 - 100 mg/dL LAB CHEMISTRY METHOD 07/23/2024 10:55 AM [facility] BUN 11 5 - 25 mg/dL LAB CHEMISTRY METHOD 07/23/2024 10:55 AM [facility] Creatinine 0.77 0.70 - 1.30 mg/dL LAB CHEMISTRY METHOD 07/23/2024 10:55 AM [facility] eGFR 104 >=60 mL/min/1. 73m2 LAB CHEMISTRY METHOD 07/23/2024 10:55 AM [facility] Comment:Calculation based on the Chronic Kidney Disease Epidemiology Collaboration (CKD-EPI) equation refit without adjustment for race. BUN/Creatinine Ratio 14.3 LAB CHEMISTRY METHOD 07/23/2024 10:55 AM [facility] Calcium 8.6 8.5 - 10.5 mg/dL LAB CHEMISTRY METHOD 07/23/2024 10:55 AM [facility] AST (SGOT) 18 10 - 42 unit/L LAB CHEMISTRY METHOD 07/23/2024 10:55 AM [facility] ALT (SGPT) 26 10 - 60 unit/L LAB CHEMISTRY METHOD 07/23/2024 10:55 AM [facility] Alkaline Phosphatase 46 42 - 121 unit/L LAB CHEMISTRY METHOD 07/23/2024 10:55 AM [facility] Total Protein 6.4 6.0 - 8.0 g/dL LAB CHEMISTRY METHOD 07/23/2024 10:55 AM EST [facility] Albumin 3.3 3.2 - 5.0 g/dL LAB CHEMISTRY METHOD 07/23/2024 10:55 AM EST [facility] Total Bilirubin 0.3 0.0 - 1.4 mg/dL LAB CHEMISTRY METHOD 07/23/2024 10:55 AM EST [facility] Blood Venous blood specimen / Unknown Venipuncture / Unknown 07/23/2024 5:32 AM EST 07/23/2024 9:53 AM EST us Robert Olivares MD LAB BLOOD ORDERABLES Final Resul t [facility] 299 [place] [address], documented in this encounter Visit Diagnoses Diagnosis Essential (primary) hypertension Unspecified essential hypertension documented in this encounter Additional Health Concerns Infection Onset Date Last Indicated Resolved Time ESBL 06/19/2024 06/19/2024 documented as of this encounter Care Teams Shoe Repairer Apprentice Relationship Specialty Start Date End Date Asia Appiah PA 175 [facility] 200 [place] [address] PCP - General Primary Care 08/15/24 documented as of this encounter
--- OUTSIDE RECORDS SUMMARY | 2025-02-18 12:17 | XMS_ITS | Encounter Summary ---
Author Organization [facility] Address [address] [place] [address] Care Team Providers Care Material Specialist Name Role Phone Asia Appiah Primary Care Provider + Encounter Details Date Type Department Care Team (Late st Contact Info) Description 07/14/[address] 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 Not on file Not on file documented as of this encounter Plan of Treatment Upcoming Encounters Date Type Department Care Team (Late st Contact Info) Description 03/04/2025 1:30 PM EDT Consult Orthopedic Surgery - [place] 250 175 [facility] [address] [place] [phone] Salazar William, FLACA 175 [facility] 250 [place] [address] 03/25/2025 3:30 PM EDT Office Visit Bariatric Surgery - [place] 175 [facility] [address] [place] [phone] Susi Rodriguez PA 230 [place] [address] 04/15/2025 10:30 AM EDT Office Visit Internal Medicine - [place] 175 [facility] 200 [place] [phone] Asia Appiah PA 230 [place] [address] documented as of this encounter Procedures Procedure Name Priority Date/Time Associated Diagnosis Comments COMPLETE BLOOD COUNT Routine 07/14/2024 9:30 AM EST Heart failure, unspecified (CMS/HCC) Essential (primary) hypertension BASIC METABOLIC PANEL Routine 07/14/2024 9:30 AM EST Heart failure, unspecified (CMS/HCC) Essential (primary) hypertension documented in this encounter Results * (ABNORMAL) Basic metabolic panel (07/14/2024 9:30 AM EST) Sodium 139 133 - 145 mmol/L LAB CHEMISTRY METHOD 07/14/2024 1:02 PM [facility] Potassium 4.2 3.5 - 5.5 mmol/L LAB CHEMISTRY METHOD 07/14/2024 1:02 PM [facility] Chloride 106 96 - 110 mmol/L LAB CHEMISTRY METHOD 07/14/2024 1:02 PM [facility] CO2 25 21 - 32 mmol/L LAB CHEMISTRY METHOD 07/14/2024 1:02 PM [facility] Anion Gap 8 3 - 11 LAB CHEMISTRY METHOD 07/14/2024 1:02 PM [facility] Glucose 138(H) 70 - 100 mg/dL LAB CHEMISTRY METHOD 07/14/2024 1:02 PM [facility] BUN 7 5 - 25 mg/dL LAB CHEMISTRY METHOD 07/14/2024 1:02 PM [facility] Creatinine 0.71 0.70 - 1.30 mg/dL LAB CHEMISTRY METHOD 07/14/2024 1:02 PM [facility] eGFR 106 >=60 mL/min/1. 73m2 LAB CHEMISTRY METHOD 07/14/2024 1:02 PM [facility] Comment:Calculation based on the Chronic Kidney Disease Epidemiology Collaboration (CKD-EPI) equation refit without adjustment for race. BUN/Creatinine Ratio 9.9 LAB CHEMISTRY METHOD 07/14/2024 1:02 PM [facility] Calcium 9.0 8.5 - 10.5 mg/dL LAB CHEMISTRY METHOD 07/14/2024 1:02 PM [facility] Blood Venous blood specimen / Unknown Venipuncture / Unknown 07/14/2024 9:30 AM EST 07/14/2024 11:32 AM EST us Robert Olivares MD LAB BLOOD ORDERABLES Final Resul t [facility] 299 [place] [address], * (ABNORMAL) Complete blood count (07/14/2024 9:30 AM EST) WBC 4.0(L) 4.8 - 10.8 K/mcL LAB HEMETOLOGY METHOD 07/14/2024 1:46 PM [facility] RBC 3.80(L) 4.50 - 5.50 M/mcL LAB HEMETOLOGY METHOD 07/14/2024 1:46 PM [facility] Hemoglobin 12.3(L) 13.5 - 17.5 g/dL LAB HEMETOLOGY METHOD 07/14/2024 1:46 PM [facility] Hematocrit 37.0(L) 42.0 - 54.0 % LAB HEMETOLOGY METHOD 07/14/2024 1:46 PM [facility] MCV 97.1 79.0 - 98.0 FL LAB HEMETOLOGY METHOD 07/14/2024 1:46 PM [facility] MCH 32.3(H) 27.0 - 32.0 pcg LAB HEMETOLOGY METHOD 07/14/2024 1:46 PM [facility] MCHC 33.2 32.0 - 37.0 g/dL LAB HEMETOLOGY METHOD 07/14/2024 1:46 PM [facility] RDW 13.4 11.0 - 15.0 % LAB HEMETOLOGY METHOD 07/14/2024 1:46 PM [facility] Platelets 215 130 - 400 K/mcL LAB HEMETOLOGY METHOD 07/14/2024 1:46 PM [facility] MPV 10.3 7.0 - 11.0 FL LAB HEMETOLOGY METHOD 07/14/2024 1:46 PM [facility] NRBC 0.0 <1.0 % LAB HEMETOLOGY METHOD 07/14/2024 1:46 PM [facility] NRBC Absolute 0.00 <0.10 K/mcL LAB HEMETOLOGY METHOD 07/14/2024 1:46 PM [facility] Blood Venous blood specimen / Unknown Venipuncture / Unknown 07/14/2024 9:30 AM EST 07/14/2024 11:32 AM EST us Robert Olivares MD LAB BLOOD ORDERABLES Final Resul t [facility] 299 [place] [address], documented in this encounter Visit Diagnoses Diagnosis Heart failure, unspecified (CMS/[facility] V24, CMS/[facility] V28) Heart failure, unspecified Essential (primary) hypertension Unspecified essential hypertension documented in this encounter Additional Health Concerns Infection Onset Date Last Indicated Resolved Time ESBL 06/19/2024 06/19/2024 documented as of this encounter Care Teams Material Specialist Relationship Specialty Start Date End Date Asia Appiah PA [address] [address] PCP - General Primary Care 08/15/24 documented as of this encounter
--- OUTSIDE RECORDS SUMMARY | 2025-02-18 12:18 | XMS_ITS | Encounter Summary ---
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 Not on file Not on file documented as of this encounter Plan of Treatment Upcoming Encounters Date Type Department Care Team (Late Contact Info) Description 03/04/2025 1:30 PM EDT Consult Orthopedic Surgery - [place] 250 175 [facility] 250 [place] [phone] Salazar William, DPM 175 [facility] 250 [place] [address] 03/25/2025 3:30 PM EDT Office Visit Bariatric Surgery - [place] 175 [facility] 120 [place] [phone] Susi Rodriguez PA 230 [place] [address] 04/15/2025 10:30 AM EDT Office Visit Internal Medicine - [place] 175 [facility] 200 [place] [phone] Asia Appiah PA 230 [place] [address] documented as of this encounter Procedures Procedure Name Priority Date/Time Associated Diagnosis Comments PROTHROMBIN TIME WITH INR STAT 06/23/2024 7:17 AM EST Hematuria, unspecified COMPLETE BLOOD COUNT STAT 06/23/2024 7:17 AM EST Hematuria, unspecified BASIC METABOLIC PANEL STAT 06/23/2024 7:17 AM EST Hematuria, unspecified documented in this encounter Results * (ABNORMAL) Basic metabolic panel (06/23/2024 7:17 AM EST) Sodium 143 133 - 145 mmol/L LAB CHEMISTRY METHOD 06/23/2024 11:53 AM [facility] Potassium 3.8 3.5 - 5.5 mmol/L LAB CHEMISTRY METHOD 06/23/2024 11:53 AM [facility] Chloride 108 96 - 110 mmol/L LAB CHEMISTRY METHOD 06/23/2024 11:53 AM [facility] CO2 26 21 - 32 mmol/L LAB CHEMISTRY METHOD 06/23/2024 11:53 AM [facility] Anion Gap 9 3 - 11 LAB CHEMISTRY METHOD 06/23/2024 11:53 AM [facility] Glucose 118(H) 70 - 100 mg/dL LAB CHEMISTRY METHOD 06/23/2024 11:53 AM [facility] BUN 7 5 - 25 mg/dL LAB CHEMISTRY METHOD 06/23/2024 11:53 AM [facility] Creatinine 0.70 0.70 - 1.30 mg/dL LAB CHEMISTRY METHOD 06/23/2024 11:53 AM [facility] eGFR 107 >=60 mL/min/1. 73m2 LAB CHEMISTRY METHOD 06/23/2024 11:53 AM [facility] Comment:Calculation based on the Chronic Kidney Disease Epidemiology Collaboration (CKD-EPI) equation refit without adjustment for race. BUN/Creatinine Ratio 10.0 LAB CHEMISTRY METHOD 06/23/2024 11:53 AM [facility] Calcium 8.5 8.5 - 10.5 mg/dL LAB CHEMISTRY METHOD 06/23/2024 11:53 AM [facility] Blood Venous blood specimen / Unknown Venipuncture / Unknown 06/23/2024 7:17 AM EST 06/23/2024 11:12 AM EST us Robert Olivares MD LAB BLOOD ORDERABLES Final Resul t [facility] 299 [place] [address], * Prothrombin time with INR (06/23/2024 7:17 AM EST) Protime 11.4 10.6 - 13.9 sec LAB COAGULATION METHOD 06/23/2024 11:33 AM EST [facility] INR 0.9 LAB COAGULATION METHOD 06/23/2024 11:33 AM [facility] Blood Venous blood specimen / Unknown Venipuncture / Unknown 06/23/2024 7:17 AM EST 06/23/2024 11:12 AM EST us Robert Olivares MD LAB BLOOD ORDERABLES Final Resul t [facility] 299 [place] [address], * (ABNORMAL) Complete blood count (06/23/2024 7:17 AM EST) WBC 6.2 4.8 - 10.8 K/mcL LAB HEMETOLOGY METHOD 06/23/2024 12:08 PM [facility] RBC 3.80(L) 4.50 - 5.50 M/mcL LAB HEMETOLOGY METHOD 06/23/2024 12:08 PM [facility] Hemoglobin 12.2(L) 13.5 - 17.5 g/dL LAB HEMETOLOGY METHOD 06/23/2024 12:08 PM [facility] Hematocrit 37.2(L) 42.0 - 54.0 % LAB HEMETOLOGY METHOD 06/23/2024 12:08 PM [facility] MCV 97.1 79.0 - 98.0 FL LAB HEMETOLOGY METHOD 06/23/2024 12:08 PM [facility] MCH 31.9 27.0 - 32.0 pcg LAB HEMETOLOGY METHOD 06/23/2024 12:08 PM [facility] MCHC 32.8 32.0 - 37.0 g/dL LAB HEMETOLOGY METHOD 06/23/2024 12:08 PM [facility] RDW 12.7 11.0 - 15.0 % LAB HEMETOLOGY METHOD 06/23/2024 12:08 PM [facility] Platelets 279 130 - 400 K/mcL LAB HEMETOLOGY METHOD 06/23/2024 12:08 PM [facility] MPV 10.0 7.0 - 11.0 FL LAB HEMETOLOGY METHOD 06/23/2024 12:08 PM EST [facility] NRBC 0.0 <1.0 % LAB HEMETOLOGY METHOD 06/23/2024 12:08 PM EST [facility] NRBC Absolute 0.00 <0.10 K/mcL LAB HEMETOLOGY METHOD 06/23/2024 12:08 PM EST [facility] Blood Venous blood specimen / Unknown Venipuncture / Unknown 06/23/2024 7:17 AM EST 06/23/2024 11:12 AM EST us Robert Olivares MD LAB BLOOD ORDERABLES Final Resul t [facility] [address] [place] [address], documented in this encounter Visit Diagnoses Diagnosis Hematuria, unspecified documented in this encounter Additional Health Concerns Infection Onset Date Last Indicated Resolved Time ESBL 06/19/2024 06/19/2024 documented as of this encounter Care Teams Speeder Operator Relationship Specialty Start Date End Date Asia Appiah PA [address] [address] PCP - General Primary Care 08/15/24 documented as of this encounter
--- OUTSIDE RECORDS SUMMARY | 2025-02-18 12:18 | XMS_ITS | Encounter Summary ---
Author Organization [facility] Address [address] [place] [address] Care Team Providers Care Roll Out Manager Name Role Phone Asia Appiah Primary Care Provider + Encounter Details Date Type Department Care Team (Late Contact Info) Description 06/23/[address] 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 Not on file Not on file documented as of this encounter Plan of Treatment Upcoming Encounters Date Type Department Care Team (Late Contact Info) Description 03/04/2025 1:30 PM EDT Consult Orthopedic Surgery - [place] 250 175 [facility] 250 [place] [phone] Salazar William, DPDaryl 175 [facility] 250 [place] [address] 03/25/2025 3:30 PM EDT Office Visit Bariatric Surgery - [place] 175 [facility] 120 [place] [phone] Susi Rodriguez PA 230 [place] [address] 04/15/2025 10:30 AM EDT Office Visit Internal Medicine - [place] 175 [facility] 200 [place] [phone] Asia Appiah PA 230 [place] [address] documented as of this encounter Procedures Procedure Name Priority Date/Time Associated Diagnosis Comments URINALYSIS WITH REFLEX MICROSCOPIC STAT 06/23/2024 5:30 AM EST Hematuria, unspecified URINALYSIS WITH REFLEX MICROSCOPIC STAT 06/23/2024 5:30 AM EST Hematuria, unspecified CULTURE URINE STAT 06/23/2024 5:30 AM EST Hematuria, unspecified documented in this encounter Results * (ABNORMAL) Urinalysis with reflex microscopic (06/23/2024 5:30 AM EST) Specific [place] Urine 1.026 1.003 - 1.030 LAB URINALYSIS - AUTOMATED METHOD 06/23/2024 11:50 AM [facility] pH, Urine 6.0 5.0 - 8.0 pH LAB URINALYSIS - AUTOMATED METHOD 06/23/2024 11:50 AM [facility] Leukocytes, Urine Negative Negative LAB URINALYSIS - AUTOMATED METHOD 06/23/2024 11:50 AM [facility] Nitrite, Urine Negative Negative LAB URINALYSIS - AUTOMATED METHOD 06/23/2024 11:50 AM [facility] Protein, Urine Trace <=Trace mg/dL LAB URINALYSIS - AUTOMATED METHOD 06/23/2024 11:50 AM [facility] Glucose, Urine Negative Negative mg/dL LAB URINALYSIS - AUTOMATED METHOD 06/23/2024 11:50 AM [facility] Ketones, Urine Negative Negative mg/dL LAB URINALYSIS - AUTOMATED METHOD 06/23/2024 11:50 AM [facility] Urobilinogen , Urine 0.2 0.2 - 1.0 mg/dL LAB URINALYSIS - AUTOMATED METHOD 06/23/2024 11:50 AM [facility] Bilirubin, Urine Negative Negative LAB URINALYSIS - AUTOMATED METHOD 06/23/2024 11:50 AM [facility] Blood, Urine Large(A) Negative LAB URINALYSIS - AUTOMATED METHOD 06/23/2024 11:50 AM [facility] RBC, Urine >100(H) 0 - 4 /HPF 06/23/2024 11:50 AM [facility] WBC, Urine 3 0 - 4 /HPF 06/23/2024 11:50 AM [facility] Squamous Epithelial, Urine 10 0 - 60 /LPF 06/23/2024 11:50 AM [facility] Crystals, Urine LIGHT CALCIUM OXALATE CRYSTALS PRESENT /LPF 06/23/2024 11:50 AM [facility] Bacteria, Urine Negative Negative /HPF 06/23/2024 11:50 AM [facility] Hyaline Casts, Urine 0 0 - 3 /LPF 06/23/2024 11:50 AM [facility] Urine Urine specimen obtained by clean catch procedure / Unknown 06/23/2024 5:30 AM EST 06/23/2024 11:23 AM EST us Robert Olivares MD LAB URINE ORDERABLES Final Resul t [facility] [address] [place] [address], [place] [phone] * Culture urine (06/23/2024 5:30 AM EST) Culture, Urine No growth 06/24/2024 9:[address] [facility] Urine Urine specimen obtained by clean catch procedure / Unknown 06/23/2024 5:30 AM EST 06/23/2024 11:23 AM EST us Robert Olivares MD LAB MICROBIOLOGY - GENERAL ORDER REGINO Final Result [facility] [address] [place] [address], [place] [phone] documented in this encounter Visit Diagnoses Diagnosis Hematuria, unspecified documented in this encounter Additional Health Concerns Infection Onset Date Last Indicated Resolved Time ESBL 06/19/2024 06/19/2024 documented as of this encounter Care Teams Roll Out Manager Relationship Specialty Start Date End Date Asia Appiah PA [address] [address] PCP - General Primary Care 08/15/24 documented as of this encounter
--- OUTSIDE RECORDS SUMMARY | 2025-02-18 12:18 | XMS_ITS | Encounter Summary ---
Author Organization [facility] Address [address] [place] [address] Care Team Providers Care Production Line Technician Name Role Phone Asia Appiah Primary Care Provider + Encounter Details Date Type Department Care Team (Late Contact Info) Description 08/13/[address] 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 file Not on file documented as of this encounter Plan of Treatment Upcoming Encounters Date Type Department Care Team (Late Contact Info) Description 03/04/2025 1:30 PM EDT Consult Orthopedic Surgery - [place] 250 175 [facility] 250 [place] [phone] Salazar William, FLACA 175 [facility] 250 [place] [address] 03/25/2025 3:30 PM EDT Office Visit Bariatric Surgery - [place] 175 [facility] 120 [place] [phone] Susi Rodriguez PA 230 [place] [address] 04/15/2025 10:30 AM EDT Office Visit Internal Medicine - [place] 175 [facility] 200 [place] [phone] Asia Appiah PA 230 [place] [address] documented as of this encounter Procedures Procedure Name Priority Date/Time Associated Diagnosis Comments BASIC METABOLIC PANEL Routine 08/14/2024 5:43 AM EST Essential (primary) hypertension documented in this encounter Results * (ABNORMAL) Basic metabolic panel (08/14/2024 5:43 AM EST) Sodium 139 133 - 145 mmol/L LAB CHEMISTRY METHOD 08/14/2024 10:49 AM [facility] Potassium 4.1 3.5 - 5.5 mmol/L LAB CHEMISTRY METHOD 08/14/2024 10:49 AM [facility] Chloride 104 96 - 110 mmol/L LAB CHEMISTRY METHOD 08/14/2024 10:49 AM [facility] CO2 28 21 - 32 mmol/L LAB CHEMISTRY METHOD 08/14/2024 10:49 AM [facility] Anion Gap 7 3 - 11 LAB CHEMISTRY METHOD 08/14/2024 10:49 AM [facility] Glucose 111(H) 70 - 100 mg/dL LAB CHEMISTRY METHOD 08/14/2024 10:49 AM [facility] BUN 19 5 - 25 mg/dL LAB CHEMISTRY METHOD 08/14/2024 10:49 AM EST [facility] Creatinine 0.86 0.70 - 1.30 mg/dL LAB CHEMISTRY METHOD 08/14/2024 10:49 AM [facility] eGFR 100 >=60 mL/min/1. 73m2 LAB CHEMISTRY METHOD 08/14/2024 10:49 AM [facility] Comment:Calculation based on the Chronic Kidney Disease Epidemiology Collaboration (CKD-EPI) equation refit without adjustment for race. BUN/Creatinine Ratio 22.1 LAB CHEMISTRY METHOD 08/14/2024 10:49 AM [facility] Calcium 9.2 8.5 - 10.5 mg/dL LAB CHEMISTRY METHOD 08/14/2024 10:49 AM [facility] Blood Venous blood specimen / Unknown Venipuncture / Unknown 08/14/2024 5:43 AM EST 08/14/2024 9:46 AM EST us Robert Olivares MD LAB BLOOD ORDERABLES Final Resul t [facility] 299 [place] [address], documented in this encounter Visit Diagnoses Diagnosis Essential (primary) hypertension Unspecified essential hypertension documented in this encounter Additional Health Concerns Infection Onset Date Last Indicated Resolved Time ESBL 06/19/2024 06/19/2024 documented as of this encounter Care Teams Production Line Technician Relationship Specialty Start Date End Date Asia Appiah PA [address] [address] PCP - General Primary Care 08/15/24 documented as of this encounter
--- OUTSIDE RECORDS SUMMARY | 2025-02-18 12:18 | XMS_ITS | Encounter Summary ---
Author Organization 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 on file Not on file documented as of this encounter Plan of Treatment Upcoming Encounters Date Type Department Care Team (Late Contact Info) Description 03/04/2025 1:30 PM EDT Consult Orthopedic Surgery - [place] 250 175 [facility] 250 [place] [phone] Salazar William, DPM 175 [facility] 250 [place] [address] 03/25/2025 3:30 PM EDT Office Visit Bariatric Surgery - [place] 175 [facility] 120 [place] [phone] Susi Rodriguez PA 230 [place] [address] 04/15/2025 10:30 AM EDT Office Visit Internal Medicine - [place] 175 [facility] 200 [place] [phone] Asia Appiah PA 230 [place] [address] documented as of this encounter Procedures Procedure Name Priority Date/Time Associated Diagnosis Comments COMPLETE BLOOD COUNT Routine 08/15/2024 5:46 AM EST Essential (primary) hypertension documented in this encounter Results * (ABNORMAL) Complete blood count (08/15/2024 5:46 AM EST) WBC 5.8 4.8 - 10.8 K/mcL LAB HEMETOLOGY METHOD 08/15/2024 10:06 AM [facility] RBC 3.90(L) 4.50 - 5.50 M/mcL LAB HEMETOLOGY METHOD 08/15/2024 10:06 AM [facility] Hemoglobin 12.5(L) 13.5 - 17.5 g/dL LAB HEMETOLOGY METHOD 08/15/2024 10:06 AM [facility] Hematocrit 36.5(L) 42.0 - 54.0 % LAB HEMETOLOGY METHOD 08/15/2024 10:06 AM [facility] MCV 94.1 79.0 - 98.0 FL LAB HEMETOLOGY METHOD 08/15/2024 10:06 AM [facility] MCH 32.2(H) 27.0 - 32.0 pcg LAB HEMETOLOGY METHOD 08/15/2024 10:06 AM EST [facility] MCHC 34.2 32.0 - 37.0 g/dL LAB HEMETOLOGY METHOD 08/15/2024 10:06 AM [facility] RDW 13.1 11.0 - 15.0 % LAB HEMETOLOGY METHOD 08/15/2024 10:06 AM [facility] Platelets 218 130 - 400 K/mcL LAB HEMETOLOGY METHOD 08/15/2024 10:06 AM [facility] MPV 10.0 7.0 - 11.0 FL LAB HEMETOLOGY METHOD 08/15/2024 10:06 AM [facility] NRBC 0.0 <1.0 % LAB HEMETOLOGY METHOD 08/15/2024 10:06 AM [facility] NRBC Absolute 0.00 <0.10 K/mcL LAB HEMETOLOGY METHOD 08/15/2024 10:06 AM [facility] Blood Venous blood specimen / Unknown Venipuncture / Unknown 08/15/2024 5:46 AM EST 08/15/2024 8:35 AM EST us Robert Olivares MD LAB BLOOD ORDERABLES Final Resul t [facility] 299 [place] [address], documented in this encounter Visit Diagnoses Diagnosis Essential (primary) hypertension Unspecified essential hypertension documented in this encounter Additional Health Concerns Infection Onset Date Last Indicated Resolved Time ESBL 06/19/2024 06/19/2024 documented as of this encounter Care Teams Hall Worker Relationship Specialty Start Date End Date Asia Appiah PA [address] [address] PCP - General Primary Care 08/15/24 documented as of this encounter
--- OUTSIDE RECORDS SUMMARY | 2025-02-18 12:18 | XMS_ITS | Encounter Summary ---
Author Organization [facility] Address [address] [place] [address] Care Team Providers Care Wood Sawyer Name Role Phone Aisa Appiah Primary Care Provider + Encounter Details Date Type Department Care Team (Late Contact Info) Description 11/25/2024 Lab Requisition [facility] - Main Lab 299 [facility] [place] [address] Kevin Hinojosa PA 36[address] [facility] 103 [place] [address] Benign prostatic hyperplasia with lower urinary tract symptoms Social History Tobacco Use Types Packs/Day Years [...] Industry 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 Date Job 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 on file Not on file documented as of this encounter Plan of Treatment Upcoming Encounters Date Type Department Care Team (Late Contact Info) Description 03/04/2025 1:30 PM EDT Consult Orthopedic Surgery - [place] 250 175 [facility] [address] [place] [phone] Salazar William, FLACA 175 [facility] 250 [place] [address] 03/25/2025 3:30 PM EDT Office Visit Bariatric Surgery - [place] 175 [facility] 120 [place] [phone] Susi Rodriguez PA 230 [place] [address] 04/15/2025 10:30 AM EDT Office Visit Internal Medicine - [place] 175 [facility] 200 [place] [phone] Asia Appiah PA 230 [place] [address] documented as of this encounter Procedures Procedure Name Priority Date/Time Associated Diagnosis Comments PROSTATE SPECIFIC ANTIGEN DIAGNOSTIC Routine 11/25/2024 10:27 AM EDT Benign prostatic hyperplasia with lower urinary tract symptoms documented in this encounter Results * Prostate specific antigen diagnostic (11/25/2024 10:27 AM EDT) PSA 2.79 0.00 - 4.00 ng/mL LAB CHEMISTRY METHOD 11/25/2024 4:09 PM EDT [facility] Blood Venous blood specimen / Unknown 11/25/2024 10:27 AM EDT 11/25/2024 2:14 PM EDT Narrative [facility] - 11/25/2024 4:09 PM EDT The Siemens Advia Centaur Chemiluminescent Immunoassay is used. Results obtained with different assay methods or kits cannot be used interchangeably. Results cannot be interpreted as absolute evidence of the presence or absence of malignant disease. Kevin LUCAS LAB BLOOD ORDERABLES Final Resul t [facility] 299 [place] [address], documented in this encounter Visit Diagnoses Diagnosis Benign prostatic hyperplasia with lower urinary tract symptoms documented in this encounter Additional Health Concerns Infection Onset Date Last Indicated Resolved Time ESBL 06/19/2024 06/19/2024 documented as of this encounter Care Teams Wood Sawyer Relationship Specialty Start Date End Date Asia Appiah PA [address] [address] PCP - General Primary Care 08/15/24 documented as of this encounter
--- OUTSIDE RECORDS SUMMARY | 2025-02-18 12:18 | XMS_ITS | Clinical Summary ---
Author Organization [facility] Address [address] [place] [address] Care Team Providers Care Sas Programmer Remote Name Role Phone Asia Appiah Primary Care Provider [phone] Allergies Active Allergy Reactions Criticality Noted Date Comments Iodinated Contrast Media Swelling High 11/21/2023 Reports throat closes and face swells. States he is given benadryl prior to CT contrast. Medications Ventolin HFA 90 mcg/actuation inhaler Inhale 1 puff by mouth every 4 hours as needed. 11/22/2023 Active atorvastatin (LIPITOR) 20 mg tablet Take 20 mg by mouth nightly. 10/15/2023 Active buPROPion XL (WELLBUTRIN XL) 300 mg tablet Take 300 mg by mouth every morning. 11/07/2023 Active busPIRone (BUSPAR) 15 mg tablet Take 15 mg by mouth 3 times a day. 10/28/2023 Active diltiazem (TIAZAC) 360 mg 24 hr capsule Take 360 mg by mouth once a day. 11/22/2023 Active escitalopram (LEXAPRO) 10 mg tablet Take 10 mg by mouth once a day. 04/10/2023 Active folic acid (FOLVITE) 1 mg tablet Take 1 mg by mouth once a day. 11/14/2023 Active gabapentin (NEURONTIN) 300 mg capsule Take 300 mg by mouth at bed time. 08/25/2023 Active losartan (COZAAR) 25 mg tablet Take 75 mg by mouth once a day. 11/07/2023 Active magnesium oxide (MAG-OX) 400 mg (241.3 mg mag) tablet Take 400 mg by mouth once a day. 12/06/2022 Active naltrexone (REVIA) 50 mg tablet Take 50 mg by mouth once a day. 11/07/2023 Active mirtazapine (REMERON) 15 mg tablet Take 15 mg by mouth nightly. 11/14/2023 Active diphenhydrAMINE (BENADRYL) 25 mg capsule Take 1 capsule (25 mg total) by mouth every 6 hours as needed for itching or hives. 11/29/2023 Active methocarbamoL (ROBAXIN) 500 mg tablet Take 1 tablet (500 mg total) by mouth 3 times a day as needed for muscle spasms. 10 tablet 11/29/2023 Active apixaban (ELIQUIS) 5 mg tablet Take 1 tablet (5 mg total) by mouth every 12 hours. 60 tablet 12/10/2023 Active isosorbide mononitrate ER (IMDUR) 30 mg tablet Take 30 mg by mouth once a day. Active thiamine HCl (VITAMIN B1) 100 mg tablet Take 100 mg by mouth once a day. Active pyridoxine, vitamin B6, 50 mg capsule Take 50 mg by mouth once a day. Active meclizine (ANTIVERT) 25 mg tablet Take 1 tablet (25 mg total) by mouth 3 times a day as needed for dizziness. 30 tablet 12/21/2023 12:53 PM EDT 12/21/2023 Active polyethylene glycol 3350 (MIRALAX) 17 gram packet Take 1 packet (17 g total) by mouth 2 times a day. Mix powder in 4 to 8 oz of water, juice, coffee, or tea prior to administrati on. 60 each 12/21/2023 12:53 PM EDT 12/21/2023 Active senna (SENOKOT) 8.6 mg tablet Take 2 tablets (17.2 mg total) by mouth nightly. 60 tablet 12/21/2023 12:53 PM EDT 12/21/2023 Active Hospital, Clinic, or Other Facility Administered Medication Ordered Dose Route Frequency Start Date End Date Status lidocaine (XYLOCAINE) 2% (20 mg/mL) urojet jelly 10 mL 10 mL urethral Once 03/03/2024 Active nitrofurantoin monohydrate/macrocrystals (MACROBID) 100 mg capsule 100 mg 100 mg oral Once 03/03/2024 Active Active Problems Problem Noted Date Diagnosed Date S/P aortic valve replacement with bioprosthetic valve 12/17/2023 Assessment & Plan (12/17/2023 5:59 PM EDT): History of bioprosthetic aortic valve. - TTE done on 12/16 revealed normal LV function. Well-seated bioprosthetic valve without valve stenosis YAMINI (obstructive sleep apnea) 12/15/2023 Impaired mobility 11/29/2023 Alcohol use disorder Assessment & Plan (12/13/2023 5:23 PM EDT): Last alcohol use was over 20 days ago as patient was recently discharged from [facility]. - continue home Naltrexone 50 mg daily - continue thiamine, Folic acid Assessment & Plan (12/12/2023 9:07 PM EDT): Last alcohol use was over 20 days ago He was in rehab till today Restarted home Naltrexone 50 mg daily Alcohol cessation counseling Continue thiamine, Folic acid ETOH abuse History of DVT (deep vein thrombosis) Assessment & Plan (12/13/2023 5:24 PM EDT): History of left arm DVT for which he was previously on apixaban but says he has not been using it for about 10 days [employer]. - resume apixaban 5 mg BID Assessment & Plan (12/12/2023 9:07 PM EDT): History of left arm DVT He was on eliquis but says he has not been using it for about 10 days Restarted his Eliquis 5 mg bid Hyperlipidemia Assessment & Plan (12/13/2023 5:24 PM EDT): Continue home meds: atorvastatin Assessment & Plan (12/12/2023 9:07 PM EDT): Continue home meds: atorvastatin Hypertension Assessment & Plan (12/13/2023 5:24 PM EDT): Continue home meds: losartan, diltiazem, Imdur Assessment & Plan (12/12/2023 9:08 PM EDT): Continue home meds: losartan, diltiazem, Imdur Obesity Assessment & Plan (12/13/2023 5:24 PM EDT): BMI 38.6 Nutritional counseling Assessment & Plan (12/12/2023 9:08 PM EDT): BMI 38.6 Nutritional counseling Resolved Problems Problem Noted Date Diagnosed Date Resolved Date Nausea 12/16/2023 12/21/2023 Vertigo 12/15/2023 12/21/2023 Assessment & Plan (12/19/2023 1:04 PM EDT): Patient states that he has been experiencing intermittent vertigo along with nausea, vomiting for the past few months. The symptoms would last anywhere between 2 to 5 days. From the presentation, appears to be BPV. Chart review revealed that patient was in the emergency room on 12/08 for an episode of dizziness. He had CT brain which was negative for acute stroke. Patient also underwent MRI brain without contrast which did not reveal any infarct. On exam on 12/15, not able to trigger dizziness with Hallpike maneuver but from the presentation, overall symptoms appear to be BPPV. estibular neuritis and other peripheral pathology also on differential. Currently improving -continue prn meclizine -outpatient ENT referral Acute conjunctivitis of both eyes 12/14/2023 12/21/2023 Assessment & Plan (12/19/2023 1:01 PM EDT): Patient reporting bilateral eye itching, pain with crusty (but non-purulent) discharge. Suspect viral vs atopic conjunctivitis. - ketotifen 0.025% ophthalmic solution 1 drop both eyes BID x 14 days. Since symptoms improved, changed the course to a total of 7 daysPatient reporting bilateral eye itching, pain with crusty (but non-purulent) discharge. Suspect viral vs atopic conjunctivitis. Acute respiratory failure 12/12/2023 Assessment & Plan (12/18/2023 5:34 PM EDT): Patient presented with right-sided chest pain. History of DVT on Eliquis though notably had missed doses in outpatient setting. Admission vitals notable for hypoxia requiring O2 supplementation via nasal cannula. Labs notable for normal BNP and troponin, mildly elevated D dimer. CXR relatively unremarkable. V/Q scan reassuring against PE. Now weaning O2 with supportive measures alone. Unclear etiology of hypoxic respiratory failure but possible this represents viral pneumonia (supported by concurrent possible viral conjunctivitis) vs obesity hypoventilation vs other etiologies. TTE EF 60%, well-seated bioprosthetic valve in the aortic position, ascending aorta and sinuses of valsalva are dilated Hypoxia resolved. Now on RA. Assessment & Plan (12/12/2023 9:15 PM EDT): Patient with chest pain, hypoxia down to 86% with history of DVT and has not been compliant with his Eliquis Chest CT showed no CHF or infection There is concern for PE He has contrast allergy so he can nto have Chest CT D dimer ordered, if positive or equivocal will order VQ scan Restarted on home eliquis Oxygen as needed to keep O2sat above 90% Monitor for bleeding Social History Tobacco Use Types Packs/Day Years Used Date Smoking Tobacco: Former Cigarettes Smokeless Tobacco: Never Alcohol Use Standard Drinks/Week Comments Not Currently 0 (1 standard drink = 0.6 oz pur e alcohol) Sex and Gender Information Value Date Recorded Sex Assigned at Male 11/21/2023 12:49 PM EDT Legal Sex Male 8:36 AM EDT Gender Identity Not on file Sexual Orientation Not on file Last Filed Vital Signs Vital Sign Reading Time Taken Comments Blood Pressure 133/96 01/07/2024 8:47 AM EDT Pulse 80 01/07/2024 8:47 AM EDT Temperature 37 C (98.6 F) 12/28/2023 11:17 AM EDT Respiratory Rate 20 12/28/2023 6:00 PM EDT Oxygen Saturation 96% 12/28/2023 6:00 PM EDT Inhaled Oxygen Concentration - - Weight 117.9 kg (260 lb) 12/28/2023 11:17 AM EDT Height 180.3 cm (5' 11 ) 12/28/2023 11:17 AM EDT Body Mass Index 36.26 12/28/2023 11:17 AM EDT Plan of Treatment Health Maintenance Due Date Last Done Comments Cologuard 1966 Colon Cancer Screening 1966 Colonoscopy 1966 FOBT / Fit Test 1966 HIV Screening 1966 Sigmoidoscopy 1966 Zoster Vaccines (1 of 2) 2016 02/29/2012 Pneumococcal Vaccine: 50+ Ye ars (3 of 3 - PCV20 or PCV21) 05/07/2022 05/07/2017, 01/03/2009 Alcohol/Substance Use Screening 06/18/2024 Depression Screening and Follow-Up 06/18/2024 Social Drivers of Health Ruma ual Screening 06/18/2024 CT Lung Cancer Screening (Baseline) 11/28/2024 11/29/2023 Basic Metabolic Panel 12/27/2024 12/28/2023 , 12/21/2023, 12/18/2023, Additional history exists COVID-19 Vaccine (5 - 2024-2 6 season) 2025 03/29/2022, 12/16/2021, 09/08/2020, Additional history exists Influenza Vaccine (#1) 2025 , 03/29/2022, 05/24/2020, Additional history exists DTaP,Tdap,and Td Vaccines (4 - Td or Tdap) 11/17/2032 11/17/2022, 11/20/2017, 03/05/2012 RSV Vaccine (60+ years old a nd patients) (1 - 1-dose 75+ series) 2041 Hepatitis B Vaccines Completed 01/09/2018, 03/19/2017, 02/16/2017, Additional history exists Hepatitis C Screening Completed 12/09/2023 Procedures * Due to [place] state law, this organization might not be sharing negative HIV tests. Procedure Name Priority Date/Time Associated Diagnosis Comments BASIC METABOLIC PANEL STAT 12/28/2023 1:12 PM EDT HEPATITIS C ANTIBODY W/REFLEX TO HCV RNA, QUANTITATIVE PCR STAT 12/09/2023 11:[address] CHEST WO CONTRAST STAT 11/29/2023 12:51 AM EDT from Last 3 Months or Most Recently Relevant to Health Maintenance Results * Due to [place] state law, this organization might not be sharing negative HIV tests. * (ABNORMAL) Basic Metabolic Panel (12/28/2023 1:12 PM EDT) NA 135 135 - 145 mmol/L 12/28/2023 1:47 PM EDT [facility] K 4.7 3.5 - 5.3 mmol/L 12/28/2023 1:47 PM EDT [facility] Cl 101 98 - 107 mmol/L 12/28/2023 1:47 PM EDT [facility] CO2 23(L) 24 - 32 mmol/L 12/28/2023 1:47 PM EDT [facility] BUN 11 7 - 23 mg/dL 12/28/2023 1:47 PM EDT [facility] Creatinine 0.90 0.60 - 1.30 mg/dL 12/28/2023 1:47 PM EDT [facility] Glucose 74 65 - 99 mg/dL 12/28/2023 1:47 PM EDT [facility] Calcium 9.0 8.6 - 10.5 mg/dL 12/28/2023 1:47 PM EDT [facility] Anion Gap 11 5 - 15 12/28/2023 1:47 PM EDT [facility] eGFR >90 >=60 mL/min/1. 73m2 12/28/2023 1:47 PM EDT [facility] Comment:The estimated glomer ular filtration rate (eGFR) is calculated using a new formula developed by the NKF-ASN task force to eliminate race-based correction factors. The new formula uses serum/plasma creatinine, age, and gender to determine eGFR. A value below 60mls/min might indicate kidney disease and will be flagged. For additional information, see Eli et al, Am J Kidney Dis. 2021;79(2):268- 288, A Unifying Approach for GFR estimation: Recommendations of the NKF-ASN Task Force on Reassessing the Inclusion of Race in Diagnosing Kidney Disease . Blood Structure of peripheral vein / Unknown Venipuncture / Unknown 12/28/2023 1:12 PM EDT 12/28/2023 1:16 PM EDT Fausto Holguin MD LAB BLOOD ORDERABLES Final Result [facility] [address] [place] [address], * Hepatitis C Antibody w/Reflex to HCV RNA, Quantitative PCR (12/09/2023 11:03 PM EDT) Hepatitis C Antibody NON-REACT CHERISE NON-REACT CHERISE 12/10/2023 4:54 PM EDT [facility] Comment: HCV antibody was non-reactive. There is no laboratory evidence of HCV infection. In most cases, no further action is required. However, if recent HCV exposure is suspected, a test for HCV RNA (test code 05474) is suggested. For additional information please refer to http://education.DonorsPlay/faq/TLP19t9 (This link is being provided for informational/ educational purposes only.) Blood Structure of peripheral vein / Unknown Venipuncture / Unknown 12/09/2023 11:03 PM EDT 12/09/2023 11:17 PM EDT Narrative [facility] - 12/10/2023 4:54 PM EDT [facility] Received Date:[id number] Jc Montanez MD LAB BLOOD ORDERABLES Final Res ult [facility] [address], [place] [address], [place] [phone] [facility] [address], [place] [address], * CT Chest WO Contrast (11/29/2023 12:51 AM EDT) Anatomical Region Laterality Modality Body Computed Tomogra phy 11/29/2023 12:5 3 AM EDT Impressions 11/29/2023 1:44 AM EDT 1. No acute traumatic injury within the chest, abdomen, pelvis, or thoracolumbar spine. 2. Small to moderate left gluteal subcutaneous tissue contusion. 3. 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 I, Tushar Buck, have reviewed the examination and concur with the findings as reported or so edited. Trainee: Francisco Javier Jaquez If this radiology report contains a blank impression section, it is an incomplete radiology report. Please contact the interpreting radiologist or applicable radiology division as soon as possible to obtain the completed interpretation. Workstation ID: [id number] Narrative 11/29/2023 1:44 AM EDT COMPARISON: None FINDINGS: Lines/tubes: None. Lungs and Airways: The central airways are patent. The lungs are clear without evidence of contusion or laceration. Bandlike atelectasis within the right lower lobe. Pleura: There is no pleural effusion or pneumothorax. Elevation of the right hemidiaphragm. Mediastinum: There is no mediastinal hematoma. Heart size is normal. Severe coronary artery calcifications. Midline and intact sternotomy wires There is no pericardial effusion. Aortic valve replacement. Fusiform dilatation of the ascending aorta which measures up to 44 mm in maximal thickness. There is no axillary, mediastinal, or hilar lymphadenopathy. Hepatobiliary: No focal lesion or biliary ductal dilatation. There is no laceration or hematoma. Decompressed gallbladder. Spleen: No splenomegaly. There is no laceration or hematoma. Pancreas: No peripancreatic fat stranding or ductal dilatation. There is no laceration, contusion, or peripancreatic fat stranding. Adrenals: No adrenal nodules. Kidneys/Ureters: No hydronephrosis, stones, or solid mass lesions. There is no laceration or hematoma. Pelvic organs/Bladder: Unremarkable. Peritoneum/Retroperitoneum: No free air or fluid. There is no mesenteric hematoma. Small umbilical hernia containing fat and antimesenteric portion of a loop of small bowel without evidence of obstruction. Lymph nodes: No lymphadenopathy. Vessels: The aortoiliac vasculature is normal in course and caliber with mild atherosclerosis. GI Tract: There is centrilobular wall thickening. Sigmoid diverticulosis without acute diverticulitis. Normal appendix. Bones and Soft Tissues: There is no acute fracture. Tiny lucency within the right lateral fourth rib is indeterminate but favors represent a benign fibro-osseous lesion. The vertebral body heights are preserved. Mild multilevel degenerative changes of thoracolumbar spine Mild to moderate left gluteal subcutaneous tissue contusion. Small umbilical hernia containing a nondilated bowel segment. Resulting Agency Comment [id number] Procedure Note Tushar Buck - 11/29/2023 COMPARISON: None FINDINGS: Lines/tubes: None. Lungs and Airways: The central airways are patent. The lungs are clearwithout evidence of contusion or laceration. Bandlike atelectasis withinthe right lower lobe. Pleura: There is no pleural effusion or pneumothorax. Elevation of theright hemidiaphragm. Mediastinum: There is no mediastinal hematoma. Heart size is normal.Severe coronary artery calcifications. Midline and intact sternotomy wiresThere is no pericardial effusion. Aortic valve replacement. Fusiformdilatation of the ascending aorta which measures up to 44 mm in maximalthickness. There is no axillary, mediastinal, or hilar lymphadenopathy. Hepatobiliary: No focal lesion or biliary ductal dilatation. There is nolaceration or hematoma. Decompressed gallbladder. Spleen: No splenomegaly. There is no laceration or hematoma. Pancreas: No peripancreatic fat stranding or ductal dilatation. There isno laceration, contusion, or peripancreatic fat stranding. Adrenals: No adrenal nodules. Kidneys/Ureters: No hydronephrosis, stones, or solid mass lesions. Thereis no laceration or hematoma. Pelvic organs/Bladder: Unremarkable. Peritoneum/Retroperitoneum: No free air or fluid. There is no mesenterichematoma. Small umbilical hernia containing fat and antimesenteric portionof a loop of small bowel without evidence of obstruction. Lymph nodes: No lymphadenopathy. Vessels: The aortoiliac vasculature is normal in course and caliber withmild atherosclerosis. GI Tract: There is centrilobular wall thickening. Sigmoid diverticulosiswithout acute diverticulitis. Normal appendix. Bones and Soft Tissues: There is no acute fracture. Tiny lucency withinthe right lateral fourth rib is indeterminate but favors represent abenign fibro-osseous lesion. The vertebral body heights are preserved.Mild multilevel degenerative changes of thoracolumbar spine Mild tomoderate left gluteal subcutaneous tissue contusion. Small umbilical hernia containing a nondilated bowel segment. IMPRESSION: 1. No acute traumatic injury within the chest, abdomen, pelvis, orthoracolumbar spine. 2. Small to moderate left gluteal subcutaneous tissue contusion. 3. Prior aortic valve replacement with a fusiform aneurysm of thedescending aorta which measures up to 44 mm. ITushar, have reviewed the examination and concur with the findingsas reported or so edited. Trainee: Francisco Javier Jaquez If this radiology report contains a blank impression section, it is anincomplete radiology report. Please contact the interpreting radiologistor applicable radiology division as soon as possible to obtain thecompleted interpretation. Workstation ID: [id number] Evelyn Murphy MD IMG CT PROCEDURES Final Resul t from Last 3 Months or Most Recently Relevant to Health Maintenance Insurance [employer] Advance Directives Documents on File Type Date Recorded Patient Sales Manager Expl [facility] Health Care Proxy 12/15/2023 10:44 AM 06-2 * Full Code (Latest Code Status on File) Date Activated Date Inactivated Comments 12/12/2023 8:23 PM 12/21/2023 4:25 PM Healthcare Agents on File Name Relationship Healthcare Agent Relationshi p Communication Puneet Rivera [facility] Agent Dalila Rivera [facility] Agen t Care Teams Sas Programmer Remote Relationship Specialty Start Date End Date Asia Appiah [address] [place] [id number] PCP - General 11/29/23
--- OUTSIDE RECORDS SUMMARY | 2025-02-18 12:18 | XMS_ITS | Encounter Summary ---
Author Organization [facility] Address [address] [place] [address] Care Team Providers Care Housing Officer Name Role Phone Asia Appiah Primary Care Provider + Encounter Details Date Type Department Care Team (Late st Contact Info) Description 08/16/2024 Lab Requisition [facility] - Main Lab [address] [facility] [place] [address] Robert Olivares MD [address] [place] [address], [phone] Unspecified diastolic (congestive) heart failure (CMS/HCC V24, CMS/HCC V28); Chest pain, unspecified Social History Tobacco Use Types Packs/Day [...] 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 Not on file Not on file documented as of this encounter Plan of Treatment Upcoming Encounters Date Type Department Care Team (Late st Contact Info) Description 03/04/2025 1:30 PM EDT Consult Orthopedic Surgery - [place] 250 [address] [facility] [address] [place] [phone] Salazar William, [place]ACA 175 [facility] [address] [place] [address] 03/25/2025 3:30 PM EDT Office Visit Bariatric Surgery - [place] 175 [facility] [address] [place] [phone] Susi Rodriguez, PA 230 [place] [address] 04/15/2025 10:30 AM EDT Office Visit Internal Medicine - [place] 175 [facility] 200 [place] [phone] Asia Appiah, PA 230 [place] [address] documented as of this encounter Procedures Procedure Name Priority Date/Time Associated Diagnosis Comments SEDIMENTATION RATE Routine 08/18/2024 7: 00 AM EST Unspecified diastolic (congestive) heart failure (CMS/HCC) Chest pain, unspecified COMPLETE BLOOD COUNT Routine 08/18/2024 7:00 AM EST Unspecified diastolic (congestive) heart failure (CMS/HCC) Chest pain, unspecified C-REACTIVE PROTEIN Routine 08/18/2024 7: 00 AM EST Unspecified diastolic (congestive) heart failure (CMS/HCC) Chest pain, unspecified B-TYPE NATRIURETIC PEPTIDE Routine 08/18/2024 7:00 AM EST Unspecified diastolic (congestive) heart failure (CMS/HCC) Chest pain, unspecified COMPREHENSIVE METABOLIC PANEL Routine 08/18/2024 7:00 AM EST Unspecified diastolic (congestive) heart failure (CMS/HCC) Chest pain, unspecified documented in this encounter Results * B-type natriuretic peptide (08/18/2024 7:00 AM EST) BNP 10 <=100 pcg/mL LAB CHEMISTRY METHOD 08/18/2024 11:25 AM [facility] Blood Venous blood specimen / Unknown Venipuncture / Unknown 08/18/2024 7:00 AM EST 08/18/2024 10:09 AM EST us Robert Olivares MD LAB BLOOD ORDERABLES Final Resul t [facility] [address] [place] [address], * (ABNORMAL) Comprehensive metabolic panel (08/18/2024 7:00 AM EST) Sodium 141 133 - 145 mmol/L LAB CHEMISTRY METHOD 08/18/2024 11:23 AM [facility] Potassium 3.8 3.5 - 5.5 mmol/L LAB CHEMISTRY METHOD 08/18/2024 11:23 AM [facility] Chloride 106 96 - 110 mmol/L LAB CHEMISTRY METHOD 08/18/2024 11:23 AM [facility] CO2 25 21 - 32 mmol/L LAB CHEMISTRY METHOD 08/18/2024 11:23 AM [facility] Anion Gap 10 3 - 11 LAB CHEMISTRY METHOD 08/18/2024 11:23 AM [facility] Glucose 125(H) 70 - 100 mg/dL LAB CHEMISTRY METHOD 08/18/2024 11:23 AM [facility] BUN 13 5 - 25 mg/dL LAB CHEMISTRY METHOD 08/18/2024 11:23 AM [facility] Creatinine 0.83 0.70 - 1.30 mg/dL LAB CHEMISTRY METHOD 08/18/2024 11:23 AM [facility] eGFR 101 >=60 mL/min/1. 73m2 LAB CHEMISTRY METHOD 08/18/2024 11:23 AM [facility] Comment:Calculation based on the Chronic Kidney Disease Epidemiology Collaboration (CKD-EPI) equation refit without adjustment for race. BUN/Creatinine Ratio 15.7 LAB CHEMISTRY METHOD 08/18/2024 11:23 AM [facility] Calcium 9.1 8.5 - 10.5 mg/dL LAB CHEMISTRY METHOD 08/18/2024 11:23 AM [facility] AST (SGOT) 17 10 - 42 unit/L LAB CHEMISTRY METHOD 08/18/2024 11:23 AM [facility] ALT (SGPT) 23 10 - 60 unit/L LAB CHEMISTRY METHOD 08/18/2024 11:23 AM [facility] Alkaline Phosphatase 49 42 - 121 unit/L LAB CHEMISTRY METHOD 08/18/2024 11:23 AM [facility] Total Protein 7.0 6.0 - 8.0 g/dL LAB CHEMISTRY METHOD 08/18/2024 11:23 AM [facility] Albumin 3.5 3.2 - 5.0 g/dL LAB CHEMISTRY METHOD 08/18/2024 11:23 AM [facility] Total Bilirubin 0.3 0.0 - 1.4 mg/dL LAB CHEMISTRY METHOD 08/18/2024 11:23 AM [facility] Blood Venous blood specimen / Unknown Venipuncture / Unknown 08/18/2024 7:00 AM EST 08/18/2024 10:09 AM EST us Robert Olivares MD LAB BLOOD ORDERABLES Final Resul t [facility] [address] [place] [address], * (ABNORMAL) Complete blood count (08/18/2024 7:00 AM EST) WBC 5.6 4.8 - 10.8 K/mcL LAB HEMETOLOGY METHOD 08/18/2024 10:57 AM [facility] RBC 4.10(L) 4.50 - 5.50 M/mcL LAB HEMETOLOGY METHOD 08/18/2024 10:57 AM [facility] Hemoglobin 13.0(L) 13.5 - 17.5 g/dL LAB HEMETOLOGY METHOD 08/18/2024 10:57 AM [facility] Hematocrit 38.9(L) 42.0 - 54.0 % LAB HEMETOLOGY METHOD 08/18/2024 10:57 AM [facility] MCV 95.3 79.0 - 98.0 FL LAB HEMETOLOGY METHOD 08/18/2024 10:57 AM [facility] MCH 31.9 27.0 - 32.0 pcg LAB HEMETOLOGY METHOD 08/18/2024 10:57 AM [facility] MCHC 33.4 32.0 - 37.0 g/dL LAB HEMETOLOGY METHOD 08/18/2024 10:57 AM [facility] RDW 13.2 11.0 - 15.0 % LAB HEMETOLOGY METHOD 08/18/2024 10:57 AM [facility] Platelets 231 130 - 400 K/mcL LAB HEMETOLOGY METHOD 08/18/2024 10:57 AM [facility] MPV 10.0 7.0 - 11.0 FL LAB HEMETOLOGY METHOD 08/18/2024 10:57 AM [facility] NRBC 0.0 <1.0 % LAB HEMETOLOGY METHOD 08/18/2024 10:57 AM [facility] NRBC Absolute 0.00 <0.10 K/mcL LAB HEMETOLOGY METHOD 08/18/2024 10:57 AM [facility] Blood Venous blood specimen / Unknown Venipuncture / Unknown 08/18/2024 7:00 AM EST 08/18/2024 10:09 AM EST us Robert Marshall MD LAB BLOOD ORDERABLES Final Resul t Performing Organization Address [facility] Co de Phone Number [facility] [address] [place] [address], [place] [phone] * C-reactive protein (08/18/2024 7:00 AM EST) C-Reactive Protein <0.29 <=0.50 mg/dL LAB CHEMISTRY METHOD 08/18/2024 11:23 AM EST [facility] Blood Venous blood specimen / Unknown Venipuncture / Unknown 08/18/2024 7:00 AM EST 08/18/2024 10:09 AM EST Robert Olivares MD LAB BLOOD ORDERABLES Final Resul t Performing Organization Address [facility] de Phone Number [facility] [address] [place] [address], [place] [phone] * Sedimentation rate (08/18/2024 7:00 AM EST) Sed Rate 17 0 - 20 mm/hr LAB HEMETOLOGY METHOD 08/18/2024 11:07 AM EST [facility] Blood Venous blood specimen / Unknown Venipuncture / Unknown 08/18/2024 7:00 AM EST 08/18/2024 10:09 AM EST Robert Olivares MD LAB BLOOD ORDERABLES Final Resul t Performing Organization Address [facility] Co de Phone Number [facility] [address] [place] [address], [place] [phone] documented in this encounter Visit Diagnoses Diagnosis Unspecified diastolic (congestive) heart failure (CMS/HCC V24, CMS/HCC V28) Chest pain, unspecified documented in this encounter Additional Health Concerns Infection Onset Date Last Indicated Resolved Time ESBL 06/19/2024 06/19/2024 documented as of this encounter Care Teams Housing Officer Relationship Specialty Start Date End Date Asia Appiah PA 175 [place] [address] PCP - General Primary Care 08/15/24 documented as of this encounter
--- OUTSIDE RECORDS SUMMARY | 2025-02-18 12:18 | XMS_ITS | Encounter Summary ---
Author Organization [facility] Address [address] [place] [address] Care Team Providers Care Taxi Truck Driver Name Role Phone Asia Appiah Primary Care Provider + Encounter Details Date Type Department Care Team (Late Contact Info) Description 06/19/[address] 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 Not on file Not on file documented as of this encounter Plan of Treatment Upcoming Encounters Date Type Department Care Team (Late Contact Info) Description 03/04/2025 1:30 PM EDT Consult Orthopedic Surgery - [place] 250 [address] [facility] [address] [place] [phone] Salazar William, [place]ACA 175 [facility] 250 [place] [address] 03/25/2025 3:30 PM EDT Office Visit Bariatric Surgery - [place] 175 [facility] [address] [place] [phone] Susi Rodriguez PA 230 [place] [address] 04/15/2025 10:30 AM EDT Office Visit Internal Medicine - [place] 175 [facility] 200 [place] [phone] Asia Appiah PA 230 [place] [address] documented as of this encounter Procedures Procedure Name Priority Date/Time Associated Diagnosis Comments URINALYSIS WITH REFLEX MICROSCOPIC Routine 06/19/2024 6:30 AM EST Urinary tract infection, site not specified URINALYSIS WITH REFLEX MICROSCOPIC Routine 06/19/2024 6:30 AM EST Urinary tract infection, site not specified CULTURE URINE Routine 06/19/2024 6:30 AM EST Urinary tract infection, site not specified documented in this encounter Results * (ABNORMAL) Urinalysis with reflex microscopic (06/19/2024 6:30 AM EST) Specific [place] Urine 1.018 1.003 - 1.030 LAB URINALYSIS - AUTOMATED METHOD 06/19/2024 11:24 AM [facility] pH, Urine 5.5 5.0 - 8.0 pH LAB URINALYSIS - AUTOMATED METHOD 06/19/2024 11:24 AM [facility] Leukocytes, Urine Moderate(A) Negative LAB URINALYSIS - AUTOMATED METHOD 06/19/2024 11:24 AM [facility] Nitrite, Urine Positive(A) Negative LAB URINALYSIS - AUTOMATED METHOD 06/19/2024 11:24 AM [facility] Protein, Urine 30(A) <=Trace mg/dL LAB URINALYSIS - AUTOMATED METHOD 06/19/2024 11:24 AM [facility] Glucose, Urine Negative Negative mg/dL LAB URINALYSIS - AUTOMATED METHOD 06/19/2024 11:24 AM [facility] Ketones, Urine Negative Negative mg/dL LAB URINALYSIS - AUTOMATED METHOD 06/19/2024 11:24 AM [facility] Urobilinogen , Urine 0.2 0.2 - 1.0 mg/dL LAB URINALYSIS - AUTOMATED METHOD 06/19/2024 11:24 AM [facility] Bilirubin, Urine Negative Negative LAB URINALYSIS - AUTOMATED METHOD 06/19/2024 11:24 AM [facility] Blood, Urine Moderate(A) Negative LAB URINALYSIS - AUTOMATED METHOD 06/19/2024 11:24 AM [facility] RBC, Urine 17.7(H) 0 - 4 /HPF LAB URINALYSIS - AUTOMATED METHOD 06/19/2024 11:24 AM [facility] WBC, Urine 186.9(H) 0 - 4 /HPF LAB URINALYSIS - AUTOMATED METHOD 06/19/2024 11:24 AM [facility] Squamous Epithelial, Urine 5 0 - 60 /LPF LAB URINALYSIS - AUTOMATED METHOD 06/19/2024 11:24 AM [facility] Bacteria, Urine Many(A) Negative /HPF LAB URINALYSIS - AUTOMATED METHOD 06/19/2024 11:24 AM [facility] Hyaline Casts, Urine 2.9 0 - 3 /LPF LAB URINALYSIS - AUTOMATED METHOD 06/19/2024 11:24 AM [facility] Urine Urine specimen obtained by clean catch procedure / Unknown Non-blood Collection / Unknown 06/19/2024 6:30 AM EST 06/19/2024 10:14 AM EST us Miah Garcia MD LAB URINE ORDERABLES Final Resul t [facility] [address] [place] [address], [place] [phone] * (ABNORMAL) Culture urine (06/19/2024 6:30 AM EST) Culture, Urine >100,000 CFU/mL Escherichia coli ESBL(A) LINDA 06/22/2024 8:28 AM EST [facility] Comment: THIS ORGANISM IS POSITIVE FOR EXTENDED SPECTRUM BETA-LACTAMASE (ESBL). EXTENDED SPECTRUM BETA-LACTAMASE PRODUCING ORGANISMS DEMONSTRATE DECREASED ACTIVITY WITH PENICILLILNS, CEPHALOSPORINS AND AZTREONAM. This is an edited result. Previous organism was Gram negative bacilli on 06/21/2024 at 0857 EST. Edited result: Previously reported as Escherichia coli on 06/21/2024 at 0857 EST. Urine Urine specimen obtained by clean catch procedure / Unknown Non-blood Collection / Unknown 06/19/2024 6:30 AM EST 06/19/2024 10:14 AM EST Narrative Organism Antibiotic Method Susceptibility Escherichia coli ESBL Amoxicillin/Clavulanate LINDA 8 ug/ml: Susceptible Escherichia coli ESBL Ampicillin/Sulbactam LINDA >=32 ug/ml: Resistant Escherichia coli ESBL Piperacillin/Tazobactam LINDA <=4 ug/ml: Susceptible Escherichia coli ESBL Cefazolin (Urine) LINDA >=32 ug/ml: Resistant Escherichia coli ESBL Cefoxitin LINDA <=4 ug/ml: Susceptible Escherichia coli ESBL Ceftazidime LINDA 8 ug/ml: Intermediate Escherichia coli ESBL Ceftriaxone LINDA >=64 ug/ml: Resistant Escherichia coli ESBL Cefepime LINDA 16 ug/ml: Resistant Escherichia coli ESBL Meropenem LINDA <=0.25 ug/ml: Susceptible Escherichia coli ESBL Amikacin LINDA 2 ug/ml: Susceptible Escherichia coli ESBL Gentamicin LINDA >=16 ug/ml: Resistant Escherichia coli ESBL Ciprofloxacin LINDA 0.5 ug/ml: Intermediate Escherichia coli ESBL Levofloxacin LINDA 1 ug/ml: Intermediate Escherichia coli ESBL Nitrofurantoin LINDA <=16 ug/ml: Susceptible Escherichia coli ESBL Trimethoprim/Sulfa methoxazol e LINDA <=20 ug/ml: Susceptible us Miah Garcia MD LAB MICROBIOLOGY - GENERAL ORDER REGINO Final Result [facility] [address] [place] [address], documented in this encounter Visit Diagnoses Diagnosis Urinary tract infection, site not specified documented in this encounter Additional Health Concerns Infection Onset Date Last Indicated Resolved Time ESBL 06/19/2024 06/19/2024 documented as of this encounter Care Teams Taxi Truck Driver Relationship Specialty Start Date End Date Asia Appiah PA 175 [facility] 200 [place] [address] PCP - General Primary Care 08/15/24 documented as of this encounter
--- OUTSIDE RECORDS SUMMARY | 2025-02-18 12:18 | XMS_ITS | Encounter Summary ---
Author Organization [facility] Address [address] [place] [address] Care Team Providers Care Wafer Mounter Name Role Phone Asia Appiah Primary Care Provider + Encounter Details Date Type Department Care Team (Late st Contact Info) Description 06/13/2024 Lab Requisition [facility] - Main Lab [address] [facility] [place] [address] Miah Garcia MD [address] [place] [address] Unspecified fracture of right lower leg, initial encounter for open fracture type I or II; Major depressive disorder, single episode, unspecified; Unspecified atrial fibrillation (CMS/HCC V24, CMS/HCC V28) Social History Tobacco [...] 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 on file Not on file documented as of this encounter Plan of Treatment Upcoming Encounters Date Type Department Care Team (Late st Contact Info) Description 03/04/2025 1:30 PM EDT Consult Orthopedic Surgery - [place] 250 175 [facility] 250 [place] [phone] Salazar William, [place]ACA 175 [facility] 250 [place] [address] 03/25/2025 3:30 PM EDT Office Visit Bariatric Surgery - [place] 175 [facility] 120 [place] [phone] Susi Rodriguez PA 230 [place] [address] 04/15/2025 10:30 AM EDT Office Visit Internal Medicine - [place] 175 [facility] 200 [place] [phone] Asia Appiah PA 230 [place] [address] documented as of this encounter Procedures Procedure Name Priority Date/Time Associated Diagnosis Comments COMPLETE BLOOD COUNT Routine 06/16/2024 7:00 AM EST Unspecified fracture of right lower leg, initial encounter for open fracture type I or II Major depressive disorder, single episode, unspecified Unspecified atrial fibrillation (CMS/HCC) BASIC METABOLIC PANEL Routine 06/16/2024 7:00 AM EST Unspecified fracture of right lower leg, initial encounter for open fracture type I or II Major depressive disorder, single episode, unspecified Unspecified atrial fibrillation (CMS/HCC) documented in this encounter Results * (ABNORMAL) Basic metabolic panel (06/16/2024 7:00 AM EST) Sodium 139 133 - 145 mmol/L LAB CHEMISTRY METHOD 06/16/2024 12:17 PM EST [facility] Potassium 3.3(L) 3.5 - 5.5 mmol/L LAB CHEMISTRY METHOD 06/16/2024 12:17 PM EST [facility] Chloride 104 96 - 110 mmol/L LAB CHEMISTRY METHOD 06/16/2024 12:17 PM [facility] CO2 26 21 - 32 mmol/L LAB CHEMISTRY METHOD 06/16/2024 12:17 PM [facility] Anion Gap 9 3 - 11 LAB CHEMISTRY METHOD 06/16/2024 12:17 PM [facility] Glucose 110(H) 70 - 100 mg/dL LAB CHEMISTRY METHOD 06/16/2024 12:17 PM [facility] BUN 8 5 - 25 mg/dL LAB CHEMISTRY METHOD 06/16/2024 12:17 PM [facility] Creatinine 0.92 0.70 - 1.30 mg/dL LAB CHEMISTRY METHOD 06/16/2024 12:17 PM [facility] eGFR 96 >=60 mL/min/1. 73m2 LAB CHEMISTRY METHOD 06/16/2024 12:17 PM [facility] Comment:Calculation based on the Chronic Kidney Disease Epidemiology Collaboration (CKD-EPI) equation refit without adjustment for race. BUN/Creatinine Ratio 8.7 LAB CHEMISTRY METHOD 06/16/2024 12:17 PM [facility] Calcium 8.9 8.5 - 10.5 mg/dL LAB CHEMISTRY METHOD 06/16/2024 12:17 PM [facility] Blood Venous blood specimen / Unknown Venipuncture / Unknown 06/16/2024 7:00 AM EST 06/16/2024 10:57 AM EST us Miah Garcia MD LAB BLOOD ORDERABLES Final Resul t [facility] [address] [place] [address], * (ABNORMAL) Complete blood count (06/16/2024 7:00 AM EST) WBC 20.1(H) 4.8 - 10.8 K/mcL LAB HEMETOLOGY METHOD 06/16/2024 11:46 AM [facility] RBC 4.00(L) 4.50 - 5.50 M/mcL LAB HEMETOLOGY METHOD 06/16/2024 11:46 AM [facility] Hemoglobin 12.9(L) 13.5 - 17.5 g/dL LAB HEMETOLOGY METHOD 06/16/2024 11:46 AM [facility] Hematocrit 39.2(L) 42.0 - 54.0 % LAB HEMETOLOGY METHOD 06/16/2024 11:46 AM [facility] MCV 98.7(H) 79.0 - 98.0 FL LAB HEMETOLOGY METHOD 06/16/2024 11:46 AM [facility] MCH 32.5(H) 27.0 - 32.0 pcg LAB HEMETOLOGY METHOD 06/16/2024 11:46 AM [facility] MCHC 32.9 32.0 - 37.0 g/dL LAB HEMETOLOGY METHOD 06/16/2024 11:46 AM [facility] RDW 13.1 11.0 - 15.0 % LAB HEMETOLOGY METHOD 06/16/2024 11:46 AM [facility] Platelets 268 130 - 400 K/mcL LAB HEMETOLOGY METHOD 06/16/2024 11:46 AM [facility] MPV 10.2 7.0 - 11.0 FL LAB HEMETOLOGY METHOD 06/16/2024 11:46 AM [facility] NRBC 0.0 <1.0 % LAB HEMETOLOGY METHOD 06/16/2024 11:46 AM [facility] NRBC Absolute 0.00 <0.10 K/mcL LAB HEMETOLOGY METHOD 06/16/2024 11:46 AM [facility] Blood Venous blood specimen / Unknown Venipuncture / Unknown 06/16/2024 7:00 AM EST 06/16/2024 10:57 AM EST us Miah Garcia MD LAB BLOOD ORDERABLES Final Resul t [facility] [address] [place] [address], documented in this encounter Visit Diagnoses Diagnosis Unspecified fracture of right lower leg, initial encounter for open fracture type I or II Major depressive disorder, single episode, unspecified Unspecified atrial fibrillation (CMS/HCC V24, CMS/HCC V28) documented in this encounter Additional Health Concerns Infection Onset Date Last Indicated Resolved Time ESBL 06/19/2024 06/19/2024 documented as of this encounter Care Teams Wafer Mounter Relationship Specialty Start Date End Date Asia Appiah PA [address] [address] PCP - General Primary Care 08/15/24 documented as of this encounter
[2025-02-18 15:05] VITALS: BMI 38.1
== END 2025-02-18 11:21 | disposition home or self-care (01) ==
LOC: HO.ENCR 10:30
PROVIDERS: PCP Physician Assistant; Visit Provider Dietitian, Registered
DX: E66.9 Obesity, unspecified (principal)

== ENCOUNTER → 2025-02-18 10:30 | Outpatient (BNVA) | payer OTHER, SELFPAY | PROVIDERS: PCP Physician Assistant; Visit Provider Dietitian, Registered | DX: E66.9 Obesity, unspecified (principal) | CPT/HCPCS: 97802 ==